=== PATIENT | female | born 1975 | race Caucasian/White ===

== ENCOUNTER → 2017-07-24 13:44 | Outpatient (CLI) | payer BC, SELFPAY ==
--- NOTE | 2017-07-24 13:45 | DI.RAD.S_ITS ---
PROCEDURE: XR FOOT RT MIN 3V INDICATIONS: 41 year-old female with right foot pain after injury 2-3 weeks ago. TECHNIQUE: 3 views of the foot were acquired. COMPARISON: [facility], , FOOT 3V RIGHT, 01/25/2013, 11:10. FINDINGS: Bones: No fractures or dislocations. No suspicious bony lesions. Tiny plantar calcaneal degenerative enthesophyte is unchanged. Soft tissues: No radiopaque soft tissue foreign bodies. No tibiotalar joint effusion. Achilles tendon appears normal. IMPRESSION: No acute bony injuries of the right foot. Dictated by: Jeffrey Tillmna M.D. on 07/24/2017 at 14:17 Approved by: Jeffrey Tillman M.D. on 07/24/2017 at 14:18
== END ==
PROVIDERS: PCP Family Medicine; Visit Provider Nurse Practitioner Family
DX: M79.671 Pain in right foot (principal)
CPT/HCPCS: 73630

== ENCOUNTER 2017-09-08 21:55 | Emergency (ER) | payer BC, SELFPAY ==
[2017-09-08 21:58] VITALS: BP 142/82; PULSE 72; RESP 16; TEMP 36.1; O2SAT 98; BMI 32.5
[2017-09-08 22:15] LABS: Bilirubin Urine UA NEGATIVE (NEGATIVE); Color Urine UA YELLOW; Glucose Urine UA NEGATIVE (Normal); Ketones Urine UA NEGATIVE (NEGATIVE); Leukocyte Esterase Urine UA 1+ (NEGATIVE); Nitrite Urine UA Negative (Negative); Occult Blood Urine UA 3+ (Negative); Protein Urine UA 1+ (Negative); Specific Gravity Urine UA >=1.030 (1.000-1.035); Urobilinogen Urine UA 0.2 E.U./dL (0.2)
[2017-09-08 22:19] LABS: Appearance Urine UA Slightly Cloudy
[2017-09-08 22:26] LABS: Bacteria Urine Few (2-10); RBC Urine 30-100/HPF (0-5/HPF); Squamous Epithelial Cell Urine 0-1 /HPF; WBC Urine 5-10/HPF (0-5/HPF)
[2017-09-08 22:27] LABS: Culture Indicated Urine Specimen Cultured
--- NOTE | 2017-09-08 22:35 | ED.ABDPAIN ---
HPI - Abdominal Pain General Chief Complaint: Abdominal Pain Stated Complaint: Lt Side Pain Time Seen by Provider: 09/08/17 22:35 Source: patient Mode of arrival: ambulatory Limitations: no limitations History of Present Illness HPI narrative: The patient developed left flank abdominal pain earlier today. The pain has persisted, the pain radiates to the left lower quadrant of her abdomen. She denies fever or chills. She has no nausea, vomiting or diarrhea. She has been drinking plenty of fluids. She denies dysuria, but notes her urine is dark. She has no hematuria. She has no history of kidney stones or pyelonephritis. She has had no recent injuries. She is on long-acting control. Her LMP was 1 year ago. She feels confident she is not . Related Data Previous Rx's Medication Instructions Recorded cyclobenzaprine 10 mg PO HS #30 tab 05/02/16 ketorolac 10 mg PO Q8HP PRN #60 tab 07/31/16 topiramate [Topamax] 100 mg PO BID #180 tab 04/01/17 topiramate [Topamax] 200 mg PO BID #180 tab 04/01/17 ketorolac 10 mg PO Q8HP PRN #60 tab 05/13/17 medroxyprogesterone 150 mg/mL 150 mg IM [id number] #1 ml 07/22/17 intramuscular suspension triamcinolone acetonide 0.1 % 1 applictn TOP BID #28.4 gram 09/07/17 topical cream Allergies Allergy/AdvReac Type Severity Reaction Status Date / Time No Known Drug Allergies Allergy Unknown Unverified 05/20/17 11:59 Review of Systems Review of Systems All systems reviewed & are unremarkable except as noted in HPI and below Constitutional Reports as per HPI, Denies chills, Denies fatigue and Denies fever(s) Cardiovascular Denies chest pain, Denies irregular heart rhythm, Denies lightheadedness, Denies palpitations, Denies dyspnea, Denies dyspnea on exertion and Denies orthopnea Respiratory Denies cough, Denies dyspnea, Denies dyspnea on exertion and Denies wheezing Gastrointestinal Gastrointestinal: Reports abdominal pain, Denies change in bowel habits, Denies diarrhea, Denies nausea and Denies vomiting Genitourinary Denies hematuria, Denies urinary frequency, Denies menorrhagia, Reports flank pain and Denies urinary urgency Musculoskeletal Reports back pain and Denies numbness Integumentary/Breasts Denies erythema and Denies rash Neurologic Denies numbness Endocrine Denies fatigue and Denies palpitations Allergic/Immunologic Denies wheezing [facility] Medical History Chronic headaches (Chronic) History of dysmenorrhea (Chronic) Seizures (Chronic) Surgical History History of skin graft (Resolved) Family History Father Melanoma Hypertension TIA (transient ischemic attack) Grandfather Colon cancer Grandfather Lymphoma Grandmother Parkinsons disease Sister Hypothyroid Graves disease Social History Smoking Status: Never smoker alcohol intake: current Exam Initial Vital Signs Initial Vital Signs: Vital Signs Temperature 97.0 F L 09/08/17 21:58 Pulse Rate 72 09/08/17 21:58 Respiratory Rate 16 09/08/17 21:58 Blood Pressure 142/82 H 09/08/17 21:58 Pulse Oximetry 98 09/08/17 21:58 Const General: cooperative and well developed Nutritional Appearance: well nourished Orientation: alert, awake, oriented x3 and not confused Eyes Conjunctivae: conjunctivae normal Sclera: sclerae normal Resp Effort & Inspection: normal respiratory effort and able to speak in complete sentences Auscultation: clear to auscultation bilaterally, no rales, no rhonchi and no wheezes Cardio Rate: regular rate Rhythm: regular rhythm Heart Sounds: S1 normal, S2 normal, no click, no gallops, no murmurs and no rubs Pulses: normal peripheral pulses GI Inspection: non-distended Palpation: soft, no hepatosplenomegaly, No guarding, No pulsatile mass and tender (left flank) Auscultation: normal bowel sounds Back/Spine/Pelvis Back: No CVA tenderness Skin General: no rashes or lesions noted, No jaundice and No petechiae Neuro General: alert, oriented x3, gait normal and no focal motor deficits Speech: speech normal Extrem General: full ROM, no clubbing, cyanosis or edema, no pedal edema and no calf tenderness Course Orders Ordered: ED Orders 09/08/17 22:02 Urinalysis and Microscopic Stat Urine Culture Stat 09/08/17 22:43 CT kidney ureter bladder (KUB) Stat 09/08/17 22:50 Basic Metabolic Panel Stat Complete Blood Count AUTO DIFF Stat Discontinued Medications Hydrocodone Bitart/Acetaminophen (Vicodin Prepack) 1 bottle MISC SEEINSTR ONE Stop: 09/09/17 00:36 Last Admin: 09/09/17 01:02 Dose: 1 bottle Sodium Chloride (Normal Saline 0.9%) 1,000 mls @ 250 mls/hr IV CONT TARA Last Infusion: 09/09/17 01:01 Dose: 250 mls/hr Admin: 09/08/17 22:59 Dose: 250 mls/hr Ketorolac Tromethamine (Toradol) 30 mg IV NOW ONE Stop: 09/08/17 22:44 Last Admin: 09/08/17 22:59 Dose: 30 mg Tamsulosin HCl (Flomax) 0.4 mg PO NOW ONE Stop: 09/08/17 23:56 Last Admin: 09/09/17 00:35 Dose: 0.4 mg Vital Signs - 8 hr 09/08/17 21:58 Temperature 97.0 F L Pulse Rate 72 Respiratory Rate 16 Blood Pressure 142/82 H Pulse Oximetry 98 MDM - Abdominal Pain Lab Data Attestation: I reviewed the patient's lab results. Result diagrams: 09/08/17 22:50 09/08/17 22:50 Lab Results 09/08/17 09/08/17 09/08/17 Range/Units 22:02 22:02 22:50 WBC 11.1 H (4.5-11.0) X10^3/uL RBC 4.78 (4.0-5.2) X10^6/uL Hgb 13.5 (12.0-16.0) g/dL Hct 40.9 (36-46) % MCV 85.7 (80-100) fL MCH 28.3 (26-34) PG MCHC 33.0 (30-36) % RDW 14.4 (11.6-14.8) % Plt Count 240 (150-400) X10^3/uL Neut % (Auto) 64.2 (50-75) % Lymph % (Auto) 23.0 L (25-40) % [place] % (Auto) 9.0 (3-14) % Eos % (Auto) 3.5 (2-4) % Baso % (Auto) 0.3 (0-2) % Neut # (Auto) 7100 H (0491-3204) /uL Sodium (137-145) mmol/L Potassium (3.4-5.1) mmol/L Chloride (98-107) mmol/L Carbon Dioxide (22-32) mmol/L BUN (7-17) mg/dL Creatinine (0.52-1.04) mg/dL Estimated GFR (>60) mL/min BUN/Creatinine Ratio (6-22) Glucose (70-100) mg/dL Calcium (8.4-10.2) mg/dL Urine Color Yellow Urine Appearance Slightly cloudy Urine pH 5.0 (4.5-8.0) Ur Specific [place] >=1.030 H (1.000-1.035) Urine Protein 1+ H (Negative) Urine Glucose (UA) Negative (Normal) g/dL Urine Ketones Negative (NEGATIVE) Urine Occult Blood 3+ H (Negative) Urine Nitrate Negative (Negative) Urine Bilirubin Negative (NEGATIVE) Urine Urobilinogen 0.2 (0.2) E.U./dL Ur Leukocyte Esterase 1+ H (NEGATIVE) Urine RBC 30-100/hpf H (0-5/HPF) Urine WBC 5-10/hpf H (0-5/HPF) Ur Squamous Epith Cells 0-1 /hpf Urine Bacteria Few (2-10) H (None) Ur Culture Indicated? Specimen cultured Micro UA Comment Not Reportable Urine Test Cancelled 09/08/17 Range/Units 22:50 WBC (4.5-11.0) X10^3/uL RBC (4.0-5.2) X10^6/uL Hgb (12.0-16.0) g/dL Hct (36-46) % MCV (80-100) fL MCH (26-34) PG MCHC (30-36) % RDW (11.6-14.8) % Plt Count (150-400) X10^3/uL Neut % (Auto) (50-75) % Lymph % (Auto) (25-40) % [place] % (Auto) (3-14) % Eos % (Auto) (2-4) % Baso % (Auto) (0-2) % Neut # (Auto) (4020-3202) /uL Sodium 142 (137-145) mmol/L Potassium 4.3 (3.4-5.1) mmol/L Chloride 111 H (98-107) mmol/L Carbon Dioxide 20 L (22-32) mmol/L BUN 13 (7-17) mg/dL Creatinine 1.00 (0.52-1.04) mg/dL Estimated GFR > 60.0 (>60) mL/min BUN/Creatinine Ratio 13.0 (6-22) Glucose 99 (70-100) mg/dL Calcium 9.1 (8.4-10.2) mg/dL Urine Color Urine Appearance Urine pH (4.5-8.0) Ur Specific [place] (1.000-1.035) Urine Protein (Negative) Urine Glucose (UA) (Normal) g/dL Urine Ketones (NEGATIVE) Urine Occult Blood (Negative) Urine Nitrate (Negative) Urine Bilirubin (NEGATIVE) Urine Urobilinogen (0.2) E.U./dL Ur Leukocyte Esterase (NEGATIVE) Urine RBC (0-5/HPF) Urine WBC (0-5/HPF) Ur Squamous Epith Cells Urine Bacteria (None) Ur Culture Indicated? Micro UA Comment Urine Test Point of care testing: Point of Care Testing Test Results Negative Imaging Data CT scan - abdomen: Radiologist's impression: 2 mm left distal ureter stone. [facility] Narrative Medical decision making narrative: The patient's pain has improved with IV Toradol. She was started on Flomax for the distal ureter stone. Discharge Plan Departure Patient Disposition: Home, Self-Care Clinical Impression: Calculus of distal left ureter Discharge Date/Time: 09/09/17 01:22 Interventions: ED Discharge Assessment Last Done: 09/09/17 01:06 Instructions: DI for Kidney Stones Activity Restrictions/Additional Instructions: Drink plenty of water, stay well hydrated. Advil 3 tablets every 6 hr as needed for pain. [facility] every 4-6 hours for added pain control when necessary. Screen your urine to ensure the passage of the stone. Follow up with her doctor at the stone has not passed in the next several days. Return here if obviously worse. Prescriptions: No Action triamcinolone acetonide 0.1 % cream 1 applictn TOP BID Qty: 28.4 RF: 0 cyclobenzaprine 10 MG tablet 10 mg PO HS Qty: 30 RF: 0 ketorolac 10 MG tablet 10 mg PO Q8HP PRNQty: 60 RF: 0 topiramate [Topamax] 200 MG tablet 200 mg PO BID Qty: 180 RF: 3 topiramate [Topamax] 100 MG tablet 100 mg PO BID Qty: 180 RF: 3 ketorolac 10 MG tablet 10 mg PO Q8HP PRNQty: 60 RF: 0 medroxyprogesterone [Depo-Provera] 150 mg/mL suspension 150 mg IM [id number] Qty: 1 RF: 0
--- NOTE | 2017-09-08 22:43 | DI.CT.S_ITS ---
PROCEDURE: CT KIDNEY URETER BLADDER (KUB) INDICATIONS: hematuria. Left flank pain. TECHNIQUE: Noncontrast 5 mm thick sections acquired from the diaphragms to the symphysis. 5 mm thick coronal and sagittal reformats were then performed. For radiation dose reduction, the following was used: automated exposure control, adjustment of mA and/or kV according to patient size. COMPARISON: [facility], CT, KIDNEY/ URETER/BLADDER, 11/13/2016, 12:46. FINDINGS: Image quality: Excellent. Lung bases: Lung bases are clear. Heart size is normal. Urinary system: There are renal calculi bilaterally measuring up to 4 mm. There is a 2 mm stone in the distal left ureter. There is mild left hydronephrosis and perinephric stranding. Both kidneys are normal in size. Both ureters appear non-dilated throughout their expected courses. Bladder is contracted, therefore, not well-seen; no calcified bladder stones. Other solid organs: Liver is normal in size. Gallbladder is normal. Pancreas is normal in contours. Spleen is normal in size. No adrenal nodules. Peritoneum and bowel: Unenhanced bowel loops demonstrate normal wall thickness and caliber. No free fluid or air. Nodes and vessels: No retroperitoneal or mesenteric adenopathy by size criteria. Aorta and inferior vena cava are normal in caliber. Abdominal wall: No ventral hernias. Pelvis: No free pelvic fluid. No inguinal hernias or adenopathy. Bones: No suspicious bony lesions. No vertebral body compression fractures. IMPRESSION: 1. A 2 mm stone in the distal left ureter causing mild left hydronephrosis. 2. Nephrolithiasis bilaterally with multiple renal stones measuring up to 4 mm. 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 Dictated by: Matteo Hdz M.D. on 09/09/2017 at 7:10 Approved by: Matteo Hdz M.D. on 09/09/2017 at 7:14
[2017-09-08] MEDS: SODIUM CHLORIDE 0.9% 1,000 ML 250 ML IV (22:59)
[2017-09-08] MEDS: KETOROLAC 60 MG/2 ML VIAL 30 MG IV (22:59)
[2017-09-08 23:01] LABS: Add Manual Diff / Slide Review NO; Basophils Percent Auto 0.3 % (0-2); Eosinophils Percent Auto 3.5 % (2-4); Hematocrit 40.9 % (36-46); Hemoglobin 13.5 g/dL (12.0-16.0); Mean Corpuscular Hemoglobin 28.3 PG (26-34); Mean Corpuscular Volume 85.7 fL (80-100); Neutrophils Absolute Auto 7100 /uL (3000-5900); Neutrophils Percent Auto 64.2 % (50-75); Platelet Count 240 X10^3/uL (150-400); Red Blood Cell Count 4.78 X10^6/uL (4.0-5.2); Red Cell Distribution Width 14.4 % (11.6-14.8); White Blood Cell Count 11.1 X10^3/uL (4.5-11.0)
[2017-09-08 23:09] LABS: Blood Urea Nitrogen 13 mg/dL (7-17); Calcium 9.1 mg/dL (8.4-10.2); Carbon Dioxide 20 mmol/L (22-32); Chloride 111 mmol/L (98-107); Estimated Glomerular Filt Rate > 60.0 mL/min (>60); Glucose 99 mg/dL (70-100); HEMOLYSIS < 15 (0-50); Potassium 4.3 mmol/L (3.4-5.1); Sodium 142 mmol/L (137-145)
[2017-09-09] MEDS: TAMSULOSIN 0.4 MG CAPSULE PO (00:35)
[2017-09-09] MEDS: HYDROCODONE/ACET 5/325 PREPACK 1 BOTTLE MISC (01:02)
== END 2017-09-09 01:22 | disposition home or self-care (01) ==
PROVIDERS: Emergency Provider Emergency Medicine; Family Provider Family Medicine; PCP Family Medicine
DX: N20.1 Calculus of ureter (principal)
CPT/HCPCS: 36591; 74176; 80048; 81001; 81025; 85025; 87086; 96361; 96374; 99283; 99284; J1885

== ENCOUNTER 2018-04-03 19:18 | Emergency (ER) | payer BC, SELFPAY ==
[2018-04-03 19:20] VITALS: BP 124/66; PULSE 95; RESP 13; TEMP 36.5; O2SAT 94
--- NOTE | 2018-04-03 19:51 | ED.NEUROSD ---
HPI - Neuro Symptoms/Deficit General Chief Complaint: Neuro Symptoms/Deficit Stated Complaint: THC ingestion Time Seen by Provider: 04/03/18 19:22 Source: patient and EMS Mode of arrival: EMS Limitations: altered mental status History of Present Illness HPI Narrative: A 42-year-old female nonsmoker presents by EMS for altered mental status, vomiting and near syncope after ingesting THC oil. She has consumed at herbal THC before but never the oil. Soon after she vomited and nearly passed out. She denies ingesting any other chemicals, alcohol or drugs. She denies any chest pain or shortness of breath. She vomited a few times and was transported by EMS for further evaluation and stabilization Onset (ago): hour(s) Timing confirmed by: spouse History of same: No Severity: mild Quality: weak On Anticoagulants: No Treatments Prior to Arrival: other medication Related Data Previous Rx's Medication Instructions Recorded topiramate [Topamax] 200 mg PO BID #180 tab 04/01/17 medroxyprogesterone 150 mg/mL 150 mg IM [id number] #1 ml 07/22/17 intramuscular suspension topiramate 100 mg tablet 100 mg PO BID #180 tab 02/03/18 diazepam 5 mg tablet See Rx Instructions PO BEDTIME PRN 04/02/18 #30 tab escitalopram 5 mg tablet 5 mg PO DAILY #30 tab 04/02/18 Allergies Allergy/AdvReac Type Severity Reaction Status Date / Time No Known Drug Allergies Allergy Unknown Verified 04/03/18 19:28 Review of Systems Review of Systems ROS Unobtainable: Unobtainable due to mental status/LOC Gastrointestinal Gastrointestinal: Reports vomiting PFSH Medical History Chronic headaches (Chronic) History of dysmenorrhea (Chronic) Seizures (Chronic) Surgical History History of skin graft (Resolved) Family History Father Melanoma Hypertension TIA (transient ischemic attack) Grandfather Colon cancer Grandfather Lymphoma Grandmother Parkinsons disease Sister Hypothyroid Graves disease Social History Smoking Status: Never smoker alcohol intake: current Family History Father Melanoma Hypertension TIA (transient ischemic attack) Grandfather Colon cancer Grandfather Lymphoma Grandmother Parkinsons disease Sister Hypothyroid Graves disease Social History Smoking Status: Never smoker alcohol intake: current Exam Narrative Exam Narrative: GENERAL: a 42-year-old female appears stated age, obtunded, guarded airway without difficulty. Handling own secretions without trouble. HEAD: Atraumatic. Normocephalic. No temporal or scalp tenderness. EYES: Pupils equal round and reactive. Extraocular motions intact. No scleral icterus. No injection or drainage. ENT: Nose without bleeding, purulent drainage or septal hematoma. Throat without erythema, tonsillar hypertrophy or exudate. Uvula midline. Airway patent. NECK: Trachea midline. No JVD or lymphadenopathy. Supple, nontender, no meningeal signs. CARDIOVASCULAR: Regular rate and rhythm without murmurs, gallops, or rubs. RESPIRATORY: Clear to auscultation. Breath sounds equal bilaterally. No wheezes, rales, or rhonchi. GASTROINTESTINAL: Abdomen soft, non-tender, nondistended. No hepato-splenomegaly, or palpable masses. No guarding. EXTREMITIES: No clubbing, cyanosis, or edema. No joint tenderness, effusion, or edema noted. BACK: Nontender without deformity or crepitance. No flank tenderness. SKIN: No rash or erythema. Initial Vital Signs Initial Vital Signs: Vital Signs Temperature 97.7 F 04/03/18 19:20 Pulse Rate 95 H 04/03/18 19:20 Respiratory Rate 13 04/03/18 19:20 Blood Pressure 124/66 04/03/18 19:20 Pulse Oximetry 94 04/03/18 19:20 Scores GCS [place] coma scale eye opening: To sound [place] coma scale verbal response: Confused [place] coma scale motor response: Obey commands [place]imi coma scale total score: 13 Course Course Narrative: Patient admitted the took THC or oil for the 1st time and states she thinks she probably took more than she had intended. She was obtunded but over the course of her stay improved in on discharge was alert and oriented and speaking clearly. Orders Ordered: ED Orders 04/03/18 22:28 Urine Culture Stat Urine Drug Screen, Rapid Stat Urine Microscopic Stat Discontinued Medications Sodium Chloride (Normal Saline 0.9%) 1,000 mls @ 1,000 mls/hr IV BOLUS PRN PRN Reason: Fluid replacement Last Infusion: 04/03/18 22:12 Dose: 0 mls/hr Admin: 04/03/18 19:54 Dose: 1,000 mls/hr Ondansetron HCl (Zofran) 4 mg IV NOW ONE Stop: 04/03/18 19:19 Last Admin: 04/03/18 19:52 Dose: 4 mg Ondansetron HCl (Zofran Odt Prepack) 1 bottle MISC SEEINSTR ONE Stop: 04/03/18 23:23 Last Admin: 04/03/18 23:33 Dose: 1 bottle Vital Signs - 8 hr 04/03/18 22:02 04/03/18 23:02 04/03/18 23:34 Pulse Rate 73 82 83 Respiratory Rate 17 12 Blood Pressure 114/55 L Blood Pressure [Right Arm] 116/72 114/55 L Pulse Oximetry 98 98 96 MDM - Neuro Symptoms/Deficit Lab Data Result diagrams: 04/03/18 19:45 04/03/18 19:45 Lab Results 04/03/18 04/03/18 04/03/18 Range/Units 19:45 19:45 19:45 WBC 12.6 H (4.5-11.0) X10^3/uL RBC 4.77 (4.0-5.2) X10^6/uL Hgb 13.5 (12.0-16.0) g/dL Hct 40.9 (36-46) % MCV 85.8 (80-100) fL MCH 28.3 (26-34) PG MCHC 33.0 (30-36) % RDW 13.7 (11.6-14.8) % Plt Count 255 (150-400) X10^3/uL Neut % (Auto) 65.7 (50-75) % Lymph % (Auto) 24.5 L (25-40) % [place] % (Auto) 6.1 (3-14) % Eos % (Auto) 3.4 (2-4) % Baso % (Auto) 0.3 (0-2) % Neut # (Auto) 8300 H (4335-3707) /uL Lymph # (Auto) 3100 (2681-5677) /uL [place] # (Auto) 800 (0-900) /uL Eos # (Auto) 400 (0-450) /uL Baso # (Auto) 0 (0-100) /uL Sodium 139 (137-145) mmol/L Potassium 3.4 (3.4-5.1) mmol/L Chloride 111 H (98-107) mmol/L Carbon Dioxide 17 L (22-32) mmol/L BUN 20 H (7-17) mg/dL Creatinine 0.80 (0.52-1.04) mg/dL Estimated GFR > 60.0 (>60) mL/min BUN/Creatinine Ratio 25.0 H (6-22) Glucose 144 H (70-100) mg/dL Lactate 1.5 (0.7-2.1) mmol/L Calcium 8.4 (8.4-10.2) mg/dL Total Bilirubin 0.2 (0.2-1.3) mg/dL Conjugated Bilirubin 0.0 (0.0-0.3) md/dL Unconjugated Bilirubin 0.0 (0.0-1.1) mg/dL AST 21 (14-36) IU/L ALT 26 (9-52) IU/L Alkaline Phosphatase 121 (38-126) U/L Total Protein 6.8 (6.3-8.2) g/dL Albumin 3.9 (3.5-5.0) g/dL Globulin 2.9 (1.7-4.1) g/dL Albumin/Globulin Ratio 1.3 (1.0-2.8) Urine RBC (0-5/HPF) Urine WBC (0-5/HPF) Ur Squamous Epith Cells Urine Bacteria (None) Urine Mucus (Negative) Ur Culture Indicated? Salicylates < 1.0 (<20) mg/dL Urine Opiates Screen (Negative) Ur Oxycodone Screen (Negative) Urine Methadone Screen (Negative) Acetaminophen < 10 L (10-30) ug/mL Ur Barbiturates Screen (Negative) U Tricyclic Antidepress (Negative) Ur Phencyclidine Scrn (Negative) Ur Amphetamines Screen (Negative) U Methamphetamines Scrn (Negative) Ur MDMA Scrn (Ecstasy) (Negative) U Benzodiazepines Scrn (Negative) Urine Cocaine Screen (Negative) U Marijuana (THC) Screen (Negative) Ethyl Alcohol < 10 mg/dL 04/03/18 04/03/18 Range/Units 22:28 22:28 WBC (4.5-11.0) X10^3/uL RBC (4.0-5.2) X10^6/uL Hgb (12.0-16.0) g/dL Hct (36-46) % MCV (80-100) fL MCH (26-34) PG MCHC (30-36) % RDW (11.6-14.8) % Plt Count (150-400) X10^3/uL Neut % (Auto) (50-75) % Lymph % (Auto) (25-40) % [place] % (Auto) (3-14) % Eos % (Auto) (2-4) % Baso % (Auto) (0-2) % Neut # (Auto) (6327-2927) /uL Lymph # (Auto) (2969-5224) /uL [place] # (Auto) (0-900) /uL Eos # (Auto) (0-450) /uL Baso # (Auto) (0-100) /uL Sodium (137-145) mmol/L Potassium (3.4-5.1) mmol/L Chloride (98-107) mmol/L Carbon Dioxide (22-32) mmol/L BUN (7-17) mg/dL Creatinine (0.52-1.04) mg/dL Estimated GFR (>60) mL/min BUN/Creatinine Ratio (6-22) Glucose (70-100) mg/dL Lactate (0.7-2.1) mmol/L Calcium (8.4-10.2) mg/dL Total Bilirubin (0.2-1.3) mg/dL Conjugated Bilirubin (0.0-0.3) md/dL Unconjugated Bilirubin (0.0-1.1) mg/dL AST (14-36) IU/L ALT (9-52) IU/L Alkaline Phosphatase (38-126) U/L Total Protein (6.3-8.2) g/dL Albumin (3.5-5.0) g/dL Globulin (1.7-4.1) g/dL Albumin/Globulin Ratio (1.0-2.8) Urine RBC 0-1/hpf D (0-5/HPF) Urine WBC 30-100/hpf H (0-5/HPF) Ur Squamous Epith Cells 1-5 /hpf Urine Bacteria Many (>30) H (None) Urine Mucus 1+ H (Negative) Ur Culture Indicated? Specimen cultured Salicylates (<20) mg/dL Urine Opiates Screen Negative (Negative) Ur Oxycodone Screen Negative (Negative) Urine Methadone Screen Negative (Negative) Acetaminophen (10-30) ug/mL Ur Barbiturates Screen Negative (Negative) U Tricyclic Antidepress Negative (Negative) Ur Phencyclidine Scrn Negative (Negative) Ur Amphetamines Screen Negative (Negative) U Methamphetamines Scrn Negative (Negative) Ur MDMA Scrn (Ecstasy) Negative (Negative) U Benzodiazepines Scrn Positive H (Negative) Urine Cocaine Screen Negative (Negative) U Marijuana (THC) Screen Positive H (Negative) Ethyl Alcohol mg/dL Point of Care Testing Test Results Negative Urine Dip Bedside Urine Glucose Negative Bedside Urine Bilirubin ++ 2 Bedside Urine Ketone +/- 5 Urine Specific [place] 1.030 Bedside Urine Occult Blood - Negative Bedside Urine pH 6.0 Bedside Urine Protein + 30 Bedside Urine Urobilinogen +/- 1mg Bedside Urine Nitrite - Negative Bedside Urine Leukocytes +++ 500 Esterase Discharge Plan Departure Patient Disposition: Home Clinical Impression: Accidental overdose Qualifiers: Encounter type: initial encounter Qualified Code(s): T50.901A - Poisoning by unspecified drugs, medicaments and biological substances, accidental (unintentional), initial encounter Discharge Date/Time: 04/03/18 23:37 Interventions: ED Discharge Assessment Last Done: 04/03/18 23:34 Instructions: DI for Accidental Ingestion -- Adult Activity Restrictions/Additional Instructions: *You have been diagnosed with [ acute accidental THC overdose ] *What to do: *Take medications as directed *Follow up with your primary care provider in 2-3 days, call for an appointment. Let them know you were seen in the Emergency Department and that we ask that you be seen in follow up *Return to ER if you should have any new, worsening or concerning symptoms Prescriptions: No Action topiramate [Topamax] 200 MG tablet 200 mg PO BID Qty: 180 RF: 3 topiramate [Topamax] 100 mg tablet 100 mg PO BID Qty: 180 RF: 3 medroxyprogesterone [Depo-Provera] 150 mg/mL suspension 150 mg IM [id number] Qty: 1 RF: 0 escitalopram oxalate 5 mg tablet 5 mg PO DAILY Qty: 30 RF: 1 diazepam 5 mg tablet See Rx Instructions PO BEDTIME PRN (Reason: muscle spasm) Qty: 30 RF: 2 Referrals: Dot Kraus DO [Primary Care Provider] -
[2018-04-03] MEDS: ONDANSETRON 4 MG/2 ML INJ IV (19:52)
[2018-04-03 19:54] LABS: Add Manual Diff / Slide Review NO; Basophils Absolute Auto 0 /uL (0-100); Basophils Percent Auto 0.3 % (0-2); Eosinophils Absolute Auto 400 /uL (0-450); Eosinophils Percent Auto 3.4 % (2-4); Hematocrit 40.9 % (36-46); Hemoglobin 13.5 g/dL (12.0-16.0); Lymphocytes Absolute Auto 3100 /uL (1100-4500); Lymphocytes Percent Auto 24.5 % (25-40); Mean Corpuscular Hemoglobin 28.3 PG (26-34); Mean Corpuscular Volume 85.8 fL (80-100); Monocytes Absolute Auto 800 /uL (0-900); Monocytes Percent Auto 6.1 % (3-14); Neutrophils Absolute Auto 8300 /uL (1500-7000); Neutrophils Percent Auto 65.7 % (50-75); Platelet Count 255 X10^3/uL (150-400); Red Blood Cell Count 4.77 X10^6/uL (4.0-5.2); Red Cell Distribution Width 13.7 % (11.6-14.8); White Blood Cell Count 12.6 X10^3/uL (4.5-11.0)
[2018-04-03] MEDS: SODIUM CHLORIDE 0.9% 1,000 ML 1000 ML IV (19:54)
--- NOTE | 2018-04-03 19:55 | ED_ITS ---
HPI - Neuro Symptoms/Deficit General Chief Complaint: Neuro Symptoms/Deficit Stated Complaint: THC ingestion Time Seen by Provider: 04/03/18 19:22 Source: patient and EMS Mode of arrival: EMS Limitations: altered mental status History of Present Illness HPI Narrative: A 42-year-old female nonsmoker presents by EMS for altered mental status, vomiting and near syncope after ingesting THC oil. She has consumed at herbal THC before but never the oil. Soon after she vomited and nearly passed out. She denies ingesting any other chemicals, alcohol or drugs. She denies any chest pain or shortness of breath. She vomited a few times and was transported by EMS for further evaluation and stabilization Onset (ago): hour(s) Timing confirmed by: spouse History of same: No Severity: mild Quality: weak On Anticoagulants: No Treatments Prior to Arrival: other medication Related Data Previous Rx's Medication Instructions Recorded topiramate [Topamax] 200 mg PO BID #180 tab 04/01/17 medroxyprogesterone 150 mg/mL 150 mg IM [id number] #1 ml 07/22/17 intramuscular suspension topiramate 100 mg tablet 100 mg PO BID #180 tab 02/03/18 diazepam 5 mg tablet See Rx Instructions PO BEDTIME PRN 04/02/18 #30 tab escitalopram 5 mg tablet 5 mg PO DAILY #30 tab 04/02/18 Allergies Allergy/AdvReac Type Severity Reaction Status Date / Time No Known Drug Allergies Allergy Unknown Verified 04/03/18 19:28 Review of Systems Review of Systems ROS Unobtainable: Unobtainable due to mental status/LOC Gastrointestinal Gastrointestinal: Reports vomiting PFSH Medical History Chronic headaches (Chronic) History of dysmenorrhea (Chronic) Seizures (Chronic) Surgical History History of skin graft (Resolved) Family History Father Melanoma Hypertension TIA (transient ischemic attack) Grandfather Colon cancer Grandfather Lymphoma Grandmother Parkinsons disease Sister Hypothyroid Graves disease Social History Smoking Status: Never smoker alcohol intake: current Family History Father Melanoma Hypertension TIA (transient ischemic attack) Grandfather Colon cancer Grandfather Lymphoma Grandmother Parkinsons disease Sister Hypothyroid Graves disease Social History Smoking Status: Never smoker alcohol intake: current Exam Narrative Exam Narrative: GENERAL: a 42-year-old female appears stated age, obtunded, guarded airway without difficulty. Handling own secretions without trouble. HEAD: Atraumatic. Normocephalic. No temporal or scalp tenderness. EYES: Pupils equal round and reactive. Extraocular motions intact. No scleral icterus. No injection or drainage. ENT: Nose without bleeding, purulent drainage or septal hematoma. Throat without erythema, tonsillar hypertrophy or exudate. Uvula midline. Airway patent. NECK: Trachea midline. No JVD or lymphadenopathy. Supple, nontender, no meningeal signs. CARDIOVASCULAR: Regular rate and rhythm without murmurs, gallops, or rubs. RESPIRATORY: Clear to auscultation. Breath sounds equal bilaterally. No wheezes, rales, or rhonchi. GASTROINTESTINAL: Abdomen soft, non-tender, nondistended. No hepato- splenomegaly, or palpable masses. No guarding. EXTREMITIES: No clubbing, cyanosis, or edema. No joint tenderness, effusion, or edema noted. BACK: Nontender without deformity or crepitance. No flank tenderness. SKIN: No rash or erythema. Initial Vital Signs Initial Vital Signs: Vital Signs Temperature 97.7 F 04/03/18 19:20 Pulse Rate 95 H 04/03/18 19:20 Respiratory Rate 13 04/03/18 19:20 Blood Pressure 124/66 04/03/18 19:20 Pulse Oximetry 94 04/03/18 19:20 Scores GCS Yimi coma scale eye opening: To sound [place] coma scale verbal response: Confused [place] coma scale motor response: Obey commands Yimi coma scale total score: 13 Course Course Narrative: Patient admitted the took THC or oil for the 1st time and states she thinks she probably took more than she had intended. She was obtunded but over the course of her stay improved in on discharge was alert and oriented and speaking clearly. Orders Ordered: ED Orders 04/03/18 22:28 Urine Culture Stat Urine Drug Screen, Rapid Stat Urine Microscopic Stat Discontinued Medications Sodium Chloride (Normal Saline 0.9%) 1,000 mls @ 1,000 mls/hr IV BOLUS PRN PRN Reason: Fluid replacement Last Infusion: 04/03/18 22:12 Dose: 0 mls/hr Admin: 04/03/18 19:54 Dose: 1,000 mls/hr Ondansetron HCl (Zofran) 4 mg IV NOW ONE Stop: 04/03/18 19:19 Last Admin: 04/03/18 19:52 Dose: 4 mg Ondansetron HCl (Zofran Odt Prepack) 1 bottle MISC SEEINSTR ONE Stop: 04/03/18 23:23 Last Admin: 04/03/18 23:33 Dose: 1 bottle Vital Signs - 8 hr 04/03/18 22:02 04/03/18 23:02 04/03/18 23:34 Pulse Rate 73 82 83 Respiratory Rate 17 12 Blood Pressure 114/55 L Blood Pressure [Right Arm] 116/72 114/55 L Pulse Oximetry 98 98 96 MDM - Neuro Symptoms/Deficit Lab Data Result diagrams: 04/03/18 19:45 04/03/18 19:45 Lab Results 04/03/18 04/03/18 04/03/18 Range/Units 19:45 19:45 19:45 WBC 12.6 H (4.5-11.0) X10^3/uL RBC 4.77 (4.0-5.2) X10^6/uL Hgb 13.5 (12.0-16.0) g/dL Hct 40.9 (36-46) % MCV 85.8 (80-100) fL MCH 28.3 (26-34) PG MCHC 33.0 (30-36) % RDW 13.7 (11.6-14.8) % Plt Count 255 (150-400) X10^3/uL Neut % (Auto) 65.7 (50-75) % Lymph % (Auto) 24.5 L (25-40) % [place] % (Auto) 6.1 (3-14) % Eos % (Auto) 3.4 (2-4) % Baso % (Auto) 0.3 (0-2) % Neut # (Auto) 8300 H (7727-0006) /uL Lymph # (Auto) 3100 (7934-8334) /uL [place] # (Auto) 800 (0-900) /uL Eos # (Auto) 400 (0-450) /uL Baso # (Auto) 0 (0-100) /uL Sodium 139 (137-145) mmol/L Potassium 3.4 (3.4-5.1) mmol/L Chloride 111 H (98-107) mmol/L Carbon Dioxide 17 L (22-32) mmol/L BUN 20 H (7-17) mg/dL Creatinine 0.80 (0.52-1.04) mg/dL Estimated GFR > 60.0 (>60) mL/min BUN/Creatinine Ratio 25.0 H (6-22) Glucose 144 H (70-100) mg/dL Lactate 1.5 (0.7-2.1) mmol/L Calcium 8.4 (8.4-10.2) mg/dL Total Bilirubin 0.2 (0.2-1.3) mg/dL Conjugated Bilirubin 0.0 (0.0-0.3) md/dL Unconjugated Bilirubin 0.0 (0.0-1.1) mg/dL AST 21 (14-36) IU/L ALT 26 (9-52) IU/L Alkaline Phosphatase 121 (38-126) U/L Total Protein 6.8 (6.3-8.2) g/dL Albumin 3.9 (3.5-5.0) g/dL Globulin 2.9 (1.7-4.1) g/dL Albumin/Globulin Ratio 1.3 (1.0-2.8) Urine RBC (0-5/HPF) Urine WBC (0-5/HPF) Ur Squamous Epith Cells Urine Bacteria (None) Urine Mucus (Negative) Ur Culture Indicated? Salicylates < 1.0 (<20) mg/dL Urine Opiates Screen (Negative) Ur Oxycodone Screen (Negative) Urine Methadone Screen (Negative) Acetaminophen < 10 L (10-30) ug/mL Ur Barbiturates Screen (Negative) U Tricyclic Antidepress (Negative) Ur Phencyclidine Scrn (Negative) Ur Amphetamines Screen (Negative) U Methamphetamines Scrn (Negative) Ur MDMA Scrn (Ecstasy) (Negative) U Benzodiazepines Scrn (Negative) Urine Cocaine Screen (Negative) U Marijuana (THC) Screen (Negative) Ethyl Alcohol < 10 mg/dL 04/03/18 04/03/18 Range/Units 22:28 22:28 WBC (4.5-11.0) X10^3/uL RBC (4.0-5.2) X10^6/uL Hgb (12.0-16.0) g/dL Hct (36-46) % MCV (80-100) fL MCH (26-34) PG MCHC (30-36) % RDW (11.6-14.8) % Plt Count (150-400) X10^3/uL Neut % (Auto) (50-75) % Lymph % (Auto) (25-40) % [place] % (Auto) (3-14) % Eos % (Auto) (2-4) % Baso % (Auto) (0-2) % Neut # (Auto) (6376-1283) /uL Lymph # (Auto) (4428-4003) /uL [place] # (Auto) (0-900) /uL Eos # (Auto) (0-450) /uL Baso # (Auto) (0-100) /uL Sodium (137-145) mmol/L Potassium (3.4-5.1) mmol/L Chloride (98-107) mmol/L Carbon Dioxide (22-32) mmol/L BUN (7-17) mg/dL Creatinine (0.52-1.04) mg/dL Estimated GFR (>60) mL/min BUN/Creatinine Ratio (6-22) Glucose (70-100) mg/dL Lactate (0.7-2.1) mmol/L Calcium (8.4-10.2) mg/dL Total Bilirubin (0.2-1.3) mg/dL Conjugated Bilirubin (0.0-0.3) md/dL Unconjugated Bilirubin (0.0-1.1) mg/dL AST (14-36) IU/L ALT (9-52) IU/L Alkaline Phosphatase (38-126) U/L Total Protein (6.3-8.2) g/dL Albumin (3.5-5.0) g/dL Globulin (1.7-4.1) g/dL Albumin/Globulin Ratio (1.0-2.8) Urine RBC 0-1/hpf D (0-5/HPF) Urine WBC 30-100/hpf H (0-5/HPF) Ur Squamous Epith Cells 1-5 /hpf Urine Bacteria Many (>30) H (None) Urine Mucus 1+ H (Negative) Ur Culture Indicated? Specimen cultured Salicylates (<20) mg/dL Urine Opiates Screen Negative (Negative) Ur Oxycodone Screen Negative (Negative) Urine Methadone Screen Negative (Negative) Acetaminophen (10-30) ug/mL Ur Barbiturates Screen Negative (Negative) U Tricyclic Antidepress Negative (Negative) Ur Phencyclidine Scrn Negative (Negative) Ur Amphetamines Screen Negative (Negative) U Methamphetamines Scrn Negative (Negative) Ur MDMA Scrn (Ecstasy) Negative (Negative) U Benzodiazepines Scrn Positive H (Negative) Urine Cocaine Screen Negative (Negative) U Marijuana (THC) Screen Positive H (Negative) Ethyl Alcohol mg/dL Point of Care Testing Test Results Negative Urine Dip Bedside Urine Glucose Negative Bedside Urine Bilirubin ++ 2 Bedside Urine Ketone +/- 5 Urine Specific [place] 1.030 Bedside Urine Occult Blood - Negative Bedside Urine pH 6.0 Bedside Urine Protein + 30 Bedside Urine Urobilinogen +/- 1mg Bedside Urine Nitrite - Negative Bedside Urine Leukocytes +++ 500 Esterase Discharge Plan Departure Patient Disposition: Home Clinical Impression: Accidental overdose Qualifiers: Encounter type: initial encounter Qualified Code(s): T50.901A - Poisoning by unspecified drugs, medicaments and biological substances, accidental (unintentional), initial encounter Discharge Date/Time: 04/03/18 23:37 Interventions: ED Discharge Assessment Last Done: 04/03/18 23:34 Instructions: DI for Accidental Ingestion -- Adult Activity Restrictions/Additional Instructions: *You have been diagnosed with [ acute accidental THC overdose ] *What to do: *Take medications as directed *Follow up with your primary care provider in 2-3 days, call for an appointment. Let them know you were seen in the Emergency Department and that we ask that you be seen in follow up *Return to ER if you should have any new, worsening or concerning symptoms Prescriptions: No Action topiramate [Topamax] 200 MG tablet 200 mg PO BID Qty: 180 RF: 3 topiramate [Topamax] 100 mg tablet 100 mg PO BID Qty: 180 RF: 3 medroxyprogesterone [Depo-Provera] 150 mg/mL suspension 150 mg IM [id number] Qty: 1 RF: 0 escitalopram oxalate 5 mg tablet 5 mg PO DAILY Qty: 30 RF: 1 diazepam 5 mg tablet See Rx Instructions PO BEDTIME PRN (Reason: muscle spasm) Qty: 30 RF: 2 Referrals: Dot Kraus DO [Primary Care Provider] -
[2018-04-03 20:00] VITALS: BP 114/66; PULSE 87; RESP 15; O2SAT 96
--- NOTE | 2018-04-03 20:02 | PC.NURSE ---
Pt is easy to wake up to voice. Pt is drowsy,answering questions appropriately. Pt ingested THC oil approx 1800 today. Pt drowsy and vomiting prior to arrival.
[2018-04-03 20:06] LABS: Acetaminophen < 10 ug/mL (10-30); Alanine Aminotransferase 26 IU/L (9-52); Albumin 3.9 g/dL (3.5-5.0); Albumin Globulin Ratio 1.3 (1.0-2.8); Alkaline Phosphatase 121 U/L (38-126); Aspartate Aminotransferase 21 IU/L (14-36); Bilirubin Total 0.2 mg/dL (0.2-1.3); Blood Urea Nitrogen 20 mg/dL (7-17); Calcium 8.4 mg/dL (8.4-10.2); Carbon Dioxide 17 mmol/L (22-32); Chloride 111 mmol/L (98-107); Estimated Glomerular Filt Rate > 60.0 mL/min (>60); Ethanol (ETOH) < 10 mg/dL; Globulin 2.9 g/dL (1.7-4.1); Glucose 144 mg/dL (70-100); HEMOLYSIS < 15 (0-50); Lactate (Lactic Acid) 1.5 mmol/L (0.7-2.1); Potassium 3.4 mmol/L (3.4-5.1); Salicylate < 1.0 mg/dL (<20); Sodium 139 mmol/L (137-145); Total Protein 6.8 g/dL (6.3-8.2)
[2018-04-03 21:30] VITALS: BP 121/71; PULSE 70; RESP 18; O2SAT 98
[2018-04-03 22:02] VITALS: BP 116/72; PULSE 73; RESP 17; O2SAT 98
[2018-04-03 22:34] LABS: Urine Tetrahydrocannabinol Positive (Negative)
[2018-04-03 22:35] LABS: Urine Amphetamines Negative (Negative); Urine Barbiturates Negative (Negative); Urine Benzodiazepines Positive (Negative); Urine Cocaine Negative (Negative); Urine MDMA Negative (Negative); Urine Methadone Negative (Negative); Urine Methamphetamines Negative (Negative); Urine Morphine/Opi cutoff 2000 Negative (Negative); Urine Oxycodone Negative (Negative); Urine Phencyclidine Negative (Negative); Urine Tricyclic Antidepressant Negative (Negative)
[2018-04-03 22:38] LABS: Bacteria Urine Many (>30); Culture Indicated Urine Specimen Cultured; Mucus Urine 1+ (Negative); RBC Urine 0-1/HPF (0-5/HPF); Squamous Epithelial Cell Urine 1-5 /HPF; WBC Urine 30-100/HPF (0-5/HPF)
[2018-04-03 23:02] VITALS: BP 114/55; PULSE 82; RESP 12; O2SAT 98
[2018-04-03] MEDS: ONDANSETRON 4 MG ODT PREPACK 1 BOTTLE MISC (23:33)
[2018-04-03 23:34] VITALS: BP 114/55; PULSE 83; O2SAT 96
== END 2018-04-03 23:37 | disposition home or self-care (01) ==
PROVIDERS: Emergency Provider Emergency Medicine; Family Provider Family Medicine; PCP Family Medicine
DX: T40.7X1A Poisoning by cannabis (derivatives), accidental (unintentional), initial encounter (principal); R11.10 Vomiting, unspecified
CPT/HCPCS: 36591; 80053; 80076; 80305; 80320; 80329; 81003; 81015; 81025; 83605; 85025; 87086; 96361; 96374; 99283; 99284; 99291; G0480; J2405

== ENCOUNTER → 2018-04-29 11:15 | Outpatient (CLI) | payer BC, SELFPAY ==
[2018-04-29 12:31] LABS: BUN Creatinine Ratio 14.4 (6-22); Blood Urea Nitrogen 13 mg/dL (7-17); Calcium 8.9 mg/dL (8.4-10.2); Carbon Dioxide 22 mmol/L (22-32); Chloride 108 mmol/L (98-107); Estimated Glomerular Filt Rate > 60.0 mL/min (>60); Glucose 87 mg/dL (70-100); HEMOLYSIS < 15 (0-50); Potassium 4.2 mmol/L (3.4-5.1); Sodium 141 mmol/L (137-145)
== END ==
PROVIDERS: PCP Family Medicine; Visit Provider Family Medicine
DX: G40.909 Epilepsy, unspecified, not intractable, without status epilepticus (principal)
CPT/HCPCS: 36415; 80048

== ENCOUNTER → 2018-10-13 17:08 | Outpatient (CLI) | payer BC, SELFPAY ==
[2018-10-13 17:37] LABS: Add Manual Diff / Slide Review NO; Basophils Absolute Auto 0 /uL (0-100); Basophils Percent Auto 0.4 % (0-2); Eosinophils Absolute Auto 500 /uL (0-450); Hematocrit 41.1 % (36-46); Hemoglobin 13.6 g/dL (12.0-16.0); Lymphocytes Absolute Auto 2900 /uL (1100-4500); Lymphocytes Percent Auto 26.9 % (25-40); Mean Corpuscular HGB Conc 33.1 % (30-36); Mean Corpuscular Hemoglobin 28.5 PG (26-34); Mean Corpuscular Volume 86.1 fL (80-100); Monocytes Absolute Auto 900 /uL (0-900); Monocytes Percent Auto 8.3 % (3-14); Neutrophils Absolute Auto 6400 /uL (1500-7000); Neutrophils Percent Auto 59.4 % (50-75); Platelet Count 251 X10^3/uL (150-400); Red Blood Cell Count 4.77 X10^6/uL (4.0-5.2); Red Cell Distribution Width 13.7 % (11.6-14.8); White Blood Cell Count 10.8 X10^3/uL (4.5-11.0)
[2018-10-13 18:32] LABS: Alanine Aminotransferase 16 IU/L (9-52); Albumin 3.9 g/dL (3.5-5.0); Albumin Globulin Ratio 1.4 (1.0-2.8); Alkaline Phosphatase 122 U/L (38-126); Aspartate Aminotransferase 20 IU/L (14-36); BUN Creatinine Ratio 16.7 (6-22); Bilirubin Total 0.4 mg/dL (0.2-1.3); Blood Urea Nitrogen 15 mg/dL (7-17); Calcium 9.3 mg/dL (8.4-10.2); Carbon Dioxide 21 mmol/L (22-32); Chloride 110 mmol/L (98-107); Estimated Glomerular Filt Rate > 60.0 mL/min (>60); Globulin 2.8 g/dL (1.7-4.1); Glucose 79 mg/dL (70-100); HEMOLYSIS < 15 (0-50); Potassium 4.2 mmol/L (3.4-5.1); Sodium 141 mmol/L (137-145); Total Protein 6.7 g/dL (6.3-8.2)
[2018-10-13 18:48] LABS: Prolactin 11.2 ng/mL (3.0-18.6)
[2018-10-13 19:04] LABS: TSH w/ Reflex to FT4 2.99 uIU/mL (0.47-4.68)
== END ==
LOC: LAB 17:10
PROVIDERS: PCP Family Medicine; Visit Provider Family Medicine
DX: G40.909 Epilepsy, unspecified, not intractable, without status epilepticus (principal); Z51.81 Encounter for therapeutic drug level monitoring; Z13.29 Encounter for screening for other suspected endocrine disorder; N94.6 Dysmenorrhea, unspecified
CPT/HCPCS: 36415; 80053; 83735; 84146; 84443; 85025

== ENCOUNTER → 2018-10-22 12:07 | Outpatient (CLI) | payer BC, SELFPAY ==
[2018-10-22 12:36] LABS: Ammonia (NH3) < 9.0 umol/L (9-30)
== END ==
PROVIDERS: PCP Family Medicine; Visit Provider Family Medicine
DX: G40.909 Epilepsy, unspecified, not intractable, without status epilepticus (principal)
CPT/HCPCS: 36415; 80201; 82140

== ENCOUNTER → 2019-03-15 13:39 | Outpatient (CLI) | payer BC, SELFPAY ==
[2019-03-15 14:18] LABS: Add Manual Diff / Slide Review NO; Basophils Absolute Auto 0 /uL (0-100); Basophils Percent Auto 0.3 % (0-2); Eosinophils Absolute Auto 200 /uL (0-450); Eosinophils Percent Auto 3.1 % (2-4); Hemoglobin 14.5 g/dL (12.0-16.0); Lymphocytes Absolute Auto 2300 /uL (1100-4500); Lymphocytes Percent Auto 30.1 % (25-40); Mean Corpuscular HGB Conc 33.8 % (30-36); Mean Corpuscular Hemoglobin 28.8 PG (26-34); Mean Corpuscular Volume 85.1 fL (80-100); Monocytes Absolute Auto 800 /uL (0-900); Monocytes Percent Auto 10.2 % (3-14); Neutrophils Absolute Auto 4400 /uL (1500-7000); Neutrophils Percent Auto 56.3 % (50-75); Platelet Count 293 X10^3/uL (150-400); Red Blood Cell Count 5.05 X10^6/uL (4.0-5.2); Red Cell Distribution Width 14.5 % (11.6-14.8); White Blood Cell Count 7.7 X10^3/uL (4.5-11.0)
[2019-03-15 15:17] LABS: TSH w/ Reflex to FT4 4.21 uIU/mL (0.47-4.68)
== END ==
PROVIDERS: PCP Family Medicine; Referring Provider Family Medicine; Visit Provider Family Medicine
DX: E04.9 Nontoxic goiter, unspecified (principal); K21.9 Gastro-esophageal reflux disease without esophagitis
CPT/HCPCS: 36415; 84443; 85025

== ENCOUNTER → 2019-03-28 14:29 | Outpatient (CLI) | payer BC, SELFPAY ==
[2019-03-28 15:58] LABS: Vitamin D 25 Hydroxy (D3) 22.8 ng/mL (30.0-100.0)
[2019-03-28 15:59] LABS: Free T3, Triiodothyronine Free 3.47 pg/mL (2.77-5.27); Free T4, Direct Thyroxine 0.79 ng/dL (0.78-2.19)
[2019-03-28 16:13] LABS: Thyroid Stimulating Hormone 5.88 uIU/mL (0.47-4.68)
[2019-03-31 14:04] LABS: Anti Thyroglobulin Antibody 1 IU/mL (< 2); Thyroid Peroxidase Antibodies 2 IU/mL (< 9)
== END ==
LOC: LAB 14:30
PROVIDERS: PCP Family Medicine; Referring Provider Family Medicine; Visit Provider Family Medicine
DX: E04.9 Nontoxic goiter, unspecified (principal); G40.909 Epilepsy, unspecified, not intractable, without status epilepticus; M85.80 Other specified disorders of bone density and structure, unspecified site; Z79.899 Other long term (current) drug therapy
CPT/HCPCS: 36415; 82306; 84439; 84443; 84481; 86376; 86800

== ENCOUNTER → 2019-03-30 11:59 | Outpatient (CLI) | payer BC, SELFPAY ==
--- NOTE | 2019-03-30 12:02 | DI.US.S_ITS ---
PROCEDURE: US THYROID INDICATIONS: GOITER TECHNIQUE: Real-time scanning was performed of the thyroid gland, with image documentation. COMPARISON: None. FINDINGS: Right: Thyroid lobe measures 5.7 x 2.4 x 2.2 cm, and is diffusely heterogeneous in echotexture. Left: Thyroid lobe measures 4.5 x 1.9 x 2.2 cm, and is diffusely heterogeneous in echotexture. Isthmus: 2 mm thick. Nodule number: 1 Location: Right medial Size: 3.4 x 1.4 x 2.4 cm. Composition: Solid Echogenicity: Hypoechoic Shape: wider than tall. Margins: Smooth Echogenic foci: None Total points: 4 ACR TI-RADS category: Moderately suspicious Nodule number: 2 Location: Right lateral Size: 3.8 x 1.7 x 2.1 cm. Composition: Solid Echogenicity: Hypoechoic Shape: wider than tall. Margins: Smooth Echogenic foci: None Total points: 4 ACR TI-RADS category: Moderately suspicious Nodule number: 3 Location: Left lateral Size: 2.4 x 0.8 x 1.0 cm. Composition: Predominantly solid Echogenicity: Heterogeneous Shape: Smooth Echogenic foci: None Total points: 3 ACR TI-RADS category: Mildly suspicious IMPRESSION: Bilateral thyroid nodules as above. Recommend sonographically directed fine needle aspiration involving the right # 1 and # 2 nodules. ACR TI-RADS definitions and recommendations: TI-RADS 1 (benign): 0 points. FNA not needed. TI-RADS 2 (not suspicious): 2 points. FNA not needed. TI-RADS 3 (mildly suspicious): 3 points. * FNA if 2.5 cm or larger, follow up if 1.5 cm or larger (at 1, 3, and 5 years). TI-RADS 4 (moderately suspicious): 4-6 points. * FNA if 1.5 cm or larger, follow up if 1 cm or larger (at 1, 2, 3, and 5 years). TI-RADS 5 (highly suspicious): 7 points or more. * FNA if 1 cm or larger, follow up if 0.5 cm or larger (every year for 5 years). Dictated by: Norman Ocampo [facility] Interpreted: Gerardo Myers MD on 03/31/2019 at 14:45 Approved by: Gerardo Myers M.D. on 03/31/2019 at 16:51
== END ==
PROVIDERS: PCP Family Medicine; Referring Provider Family Medicine; Visit Provider Family Medicine
DX: E04.2 Nontoxic multinodular goiter (principal)
CPT/HCPCS: 76536

== ENCOUNTER → 2019-04-26 13:22 | Outpatient (CLI) | payer BC, SELFPAY ==
--- NOTE | 2019-04-26 | PATH_ITS ---
Note [facility] Accession Number: [id number] TESTS RESULT FLAG UNITS REF RANGE LAB Clinician Provided Cytology Information No. of containers..01 Other (Miscellaneous) No. of containers..02 Previously Prepared Cytology Slide 01 RIGHT THYROID DIAGNOSIS: 01 RIGHT THYROID LOBE NODULE, FINE NEEDLE ASPIRATION. NEGATIVE FOR MALIGNANT CELLS. ADEQUATE FOR EVALUATION. COLLOID AND FOLLICULAR GROUPS ARE PRESENT. BENIGN FOLLICULAR (GOITEROUS) NODULE (BETHESDA CATEGORY II), AND FINDINGS THAT RAISE THE POSSIBILITY OF LYMPHOCYTIC THYROIDITIS, SEE COMMENT. COMMENT: EXAMINATION OF THE SMEARS AND THIN PREP SLIDE REVEALS COLLOID, GROUPS OF FOLLICULAR CELLS WITH HURTHLE CELL CHANGES- WITHOUT SIGNIFICANT CYTOLOGIC OR ARCHITECTURAL ATYPIA AND BACKGROUND SMALL, MATURE LYMPHOCYTES. THE DIFFERENTIAL DIAGNOSIS INCLUDES BENIGN GOITEROUS NODULE WITH SAMPLING OF A JING/INTRATHYROIDAL LYMPH NODE, OR NODULAR LYMPHOCYTIC (JILLIAN) THYROIDITIS, IN THE PROPER CLINICAL/LABORATORY CONTEXT. ACCORDING TO THE BETHESDA REPORTING SYSTEM FOR THYROID CYTOPATHOLOGY, THE RISK OF MALIGNANCY IN THE CATEGORY BENIGN-CATEGORY II IS 0-3%; THEREFORE RECOMMEND CONTINUED ULTRASOUND SURVEILLANCE WITH REPEAT FNA IF THE NODULE SIGNIFICANTLY INCREASES IN SIZE. Pathologist ICD10: 01 E04.2 01 FINDINGS: Right: Thyroid lobe measures 5.7 x 2.4 x 2.2 cm, and is diffusely heterogeneous in echotexture. Left: Thyroid lobe measures 4.5 x 1.9 x 2.2 cm, and is diffusely heterogeneous in echotexture. Isthmus: 2 mm thick. Nodule number: 1 Location: Right medial Size: 3.4 x 1.4 x 2.4 cm. Composition: Solid Echogenicity: Hypoechoic Shape: wider than tall. Margins: Smooth Echogenic foci: None Total points: 4 ACR T I-RADS category: Moderately suspicious Nodule number: 2 Location: Right lateral Size: 3.8 x 1.7 x 2.1 cm. Composition: Solid Echogenicity: Hypoechoic Shape: wider than tall. Margins: Smooth Echogenic foci: None Total points: 4 ACR T I-RADS category: Moderately suspicious Nodule number: 3 Location: Left lateral Size: 2.4 x 0.8 x 1.0 cm. Composition: Predominantly solid Echogenicity: Heterogeneous Shape: Smooth Echogenic foci: None Total points: 3 ACR T I-RADS category: Mildly suspicious IMPRESSION: Bilateral thyroid nodules as above. Recommend sonographically directed fine needle aspiration involving the right # 1 and # 2 nodules. ACR TI-RADS definitions and recommendations: TI-RADS 1 (benign): 0 points. FNA not needed. TI-RADS 2 (not suspicious): 2 points. FNA not needed. TI-RADS 3 (mildly suspicious): 3 points. FNA if 2.5 cm or larger, follow up if 1.5 cm or larger (at 1, 3, and 5 years). TIRADS 4 (moderately suspicious): 4-6 points. FNA if 1.5 cm or larger, follow up if 1 cm or larger (at 1, 2, 3, and 5 years). TI-RADS 5 (highly suspicious): 7 points or more. FNA if 1 cm or larger, follow up if 0.5 cm or larger (every year for 5 years). 01 Joe Meredith MD, Pathologist NPI- [id number] 01 Bong Saldaña, Car Repairer Apprentice (ASC) 01 30 CC, RED, CLEAR RECIEVED: 6 ALCOHOL FIXED AND 6 QUICK STAINED SLIDES WITH 1 RNA VIAL FOR FURTHER TESTING. /VDU 04/27/2019 0646 Local FLAG LEGEND: L-Low Normal,H-High Normal,LL-Alert Low,HH-Alert High <-Panic Low,>-Panic High,A-Abnormal,AA-Critical Abnormal Performed at: 01 =Z [facility] [address] [address] [place] [address] [address], [place] [address] Brandt Liu MD, Performed at: 01 [facility] [address], [place], [place] [id number] MD Brandt Liu MD Phone: [phone]
--- NOTE | 2019-04-26 13:25 | DI.US.S_ITS ---
PROCEDURE: US FINE NEEDLE ASPIRATION INDICATIONS: moderately suspicious thyroid nodule TECHNIQUE: The indications, alternatives, benefits, risks, and complications of the procedure were explained to the patient. Written informed consent was obtained and placed in the chart. The thyroid region was examined sonographically and a site was chosen for ultrasound guided percutaneous sampling. The skin was prepared and draped in the usual fashion, and anesthetized with 1% lidocaine infiltrated from the skin down to the thyroid gland. Multiple passes were then performed, with contents emptied into an appropriate pathology specimen container. A bandage was applied to the area of access at completion of the study. COMPARISON: None. FINDINGS: Location(s) of lesion(s) sampled: Right thyroid lobe, which contains a bilobed nodule rather than to discrete nodules, and thyroid fine needle aspiration into the mass was performed at different angles and depths for adequate sampling. [place]: 25 gauge hypodermic needles. Number of passes: 8 Medications: 1% lidocaine for local anaesthesia. Complications: None. IMPRESSION: Successful ultrasound-guided thyroid nodule fine needle aspiration, with cytology results pending. Please see chart below for management recommendations based on cytology results. Counce System ReportingRecommendationsNon-diagnostic* Repeat US-guided FNA, with on-site cytology evaluation if possible. * Repeated non-diagnostic nodules without high suspicion US features: close observation vs surgical consult. * Consider surgery if nodule has high suspicion US features, grows >20% in 2 dimensions on followup, or patient has clinical risk factors for malignancy. Benign* If nodule has high suspicion US features: repeat US and FNA within 12 months. * If nodule has low to intermediate suspicion US features: repeat US at 12-24 months. If nodule grows (20% increase in at least 2 dimensions, with minimal increase of 2 mm or >50% change in volume), or development of new suspicious US features, then repeat FNA or continue followup. * If nodule has very low suspicion US features: followup US at >24 months. Atypia of undetermined significance, follicular lesion of undetermined significanceRepeat FNA, molecular testing, followup US, or surgical consult.Follicular neoplasm, suspicious for follicular neoplasmSurgical consult; also consider molecular testing. Suspicious for malignancySurgical consult.MalignantSurgical consult. Dictated by: Familia Collazo M.D. on 04/26/2019 at 16:19 Approved by: Familia Collazo M.D. on 04/26/2019 at 16:20
== END ==
PROVIDERS: PCP Family Medicine; Referring Provider Family Medicine; Visit Provider Family Medicine
DX: E04.2 Nontoxic multinodular goiter (principal)
CPT/HCPCS: 10005

== ENCOUNTER → 2019-05-19 14:00 | Outpatient (CLI) | payer OTHER, SELFPAY ==
[2019-05-19 16:06] LABS: Vitamin D 25 Hydroxy (D3) 32.8 ng/mL (30.0-100.0)
[2019-05-19 16:07] LABS: Free T3, Triiodothyronine Free 2.56 pg/mL (2.77-5.27); Free T4, Direct Thyroxine 1.03 ng/dL (0.78-2.19)
[2019-05-19 16:20] LABS: Thyroid Stimulating Hormone 2.54 uIU/mL (0.47-4.68)
[2019-05-24 06:42] LABS: Deamidated Gliadin IgA 4 units (0-19); Deamidated Gliadin IgG 2 units (0-19); IGA 333 mg/dL (87-352); t-Transglutaminase IgA <2 U/mL (0-3)
== END ==
LOC: LAB 14:03
PROVIDERS: PCP Family Medicine; Referring Provider Family Medicine; Visit Provider Family Medicine
DX: E03.9 Hypothyroidism, unspecified (principal); E55.9 Vitamin D deficiency, unspecified; G40.909 Epilepsy, unspecified, not intractable, without status epilepticus; M85.80 Other specified disorders of bone density and structure, unspecified site; R10.9 Unspecified abdominal pain
CPT/HCPCS: 36415; 82306; 82784; 83516; 84439; 84443; 84481

== ENCOUNTER → 2019-06-24 09:54 | Outpatient (CLI) | payer OTHER, SELFPAY ==
[2019-06-24 11:04] LABS: Vitamin D 25 Hydroxy (D3) 45.5 ng/mL (30.0-100.0)
[2019-06-24 11:08] LABS: Free T4, Direct Thyroxine 1.19 ng/dL (0.78-2.19)
[2019-06-24 11:22] LABS: Thyroid Stimulating Hormone 3.89 uIU/mL (0.47-4.68)
[2019-06-26 00:36] LABS: Anti Thyroglobulin Antibody <1.0 IU/mL (0.0-0.9); Thyroid Peroxidase Antibodies <9 IU/mL (0-34)
[2019-06-28 08:19] LABS: Triiodothyronine T3 Reverse 16.7 ng/dL (9.2-24.1)
== END ==
PROVIDERS: PCP Family Medicine; Referring Provider Family Medicine; Visit Provider Family Medicine
DX: E04.1 Nontoxic single thyroid nodule (principal); E06.3 Autoimmune thyroiditis; E55.9 Vitamin D deficiency, unspecified; G40.909 Epilepsy, unspecified, not intractable, without status epilepticus; Z79.899 Other long term (current) drug therapy; M85.80 Other specified disorders of bone density and structure, unspecified site
CPT/HCPCS: 36415; 82306; 84439; 84443; 84481; 84482; 86376; 86800

== ENCOUNTER → 2019-07-29 06:46 | Outpatient (CLI) | payer OTHER, SELFPAY ==
--- NOTE | 2019-07-29 06:48 | DI.CT.S_ITS ---
PROCEDURE: CT KIDNEY URETER BLADDER (KUB) INDICATIONS: RLQ pain, history of kidney stones, hematuria TECHNIQUE: Noncontrast 5 mm thick sections acquired from the diaphragms to the symphysis. 5 mm thick coronal and sagittal reformats were then performed. For radiation dose reduction, the following was used: automated exposure control, adjustment of mA and/or kV according to patient size. COMPARISON: [facility], CT, CT KIDNEY URETER BLADDER (KUB), 09/08/2017, 22:52. FINDINGS: Image quality: Excellent. Lung bases: Lung bases are clear. Heart size is normal. Urinary system: Both kidneys are normal in size. It bilateral nonobstructing calculi are present, the largest of which measures 4 mm on the right and 7 mm on the left. No hydronephrosis or perinephric fat stranding. Both ureters appear non-dilated throughout their expected courses. There is a questionable 2 mm nonobstructing calculus within the distal right ureter (series 2/image 81). This is new when compared with the prior CT dated 09/08/17. Bladder is decompressed. No calcified bladder stones. Other solid organs: Liver is normal in size. Gallbladder is unremarkable. Pancreas is normal in contours. Spleen is normal in size. Subcentimeter hyperdense focus in the central aspect of the spleen is unchanged from the study dated 09/08/17 and may represent a small cyst or hemangioma. No adrenal nodules. Peritoneum and bowel: Unenhanced bowel loops demonstrate normal wall thickness and caliber. No free fluid or air. Nodes and vessels: No retroperitoneal or mesenteric adenopathy by size criteria. Aorta and inferior vena cava are normal in caliber. Abdominal wall: No ventral hernias. Pelvis: No free pelvic fluid. No inguinal hernias or adenopathy. Bones: No suspicious bony lesions. No vertebral body compression fractures. IMPRESSION: 1. Nonobstructive bilateral nephrolithiasis. 2. Probable 2 mm distal right ureteral calculus. No hydroureter to suggest obstruction. 3. No acute intra-abdominal findings. Normal appendix. Dictated by: Althea Zendejas M.D. on 07/29/2019 at 8:27 Approved by: Althea Zendejas M.D. on 07/29/2019 at 8:34
== END ==
PROVIDERS: PCP Family Medicine; Referring Provider Family Medicine; Visit Provider Family Medicine
DX: R31.9 Hematuria, unspecified (principal); R10.31 Right lower quadrant pain; N20.0 Calculus of kidney; N20.1 Calculus of ureter; Z87.442 Personal history of urinary calculi
CPT/HCPCS: 74176

== ENCOUNTER → 2019-08-03 10:24 | Outpatient (CLI) | payer OTHER, SELFPAY ==
--- NOTE | 2019-08-03 10:25 | DI.US.S_ITS ---
PROCEDURE: US RENAL COMPLETE INDICATIONS: FLANK PAIN TECHNIQUE: Real-time scanning was performed of the kidneys and bladder, with image documentation. COMPARISON: [facility], CT, CT KIDNEY URETER BLADDER (KUB), 07/29/2019, 6:52. FINDINGS: Kidneys: Kidneys are normal in size. Right kidney measures 11.3 cm long; left kidney measures 11.8 cm long. Right renal cortical thickness is 1.5 cm; left renal cortical thickness is 0.9 cm. Renal cortical echotexture is normal. No hydronephrosis. No suspicious solid mass lesions. Scattered nonobstructing stones are seen, which are better demonstrated on the prior CT examination. Bladder: Pre-void bladder volume is 106 mL. Post-void residual is 21 mL. Pre-void images demonstrate no intraluminal masses or stones. On pre-void images, only the right ureteral jet can be seen with color Doppler interrogation. (Of note, ureteral jets may not be detectable in up to 25% of cases due to insufficient differences in specific gravity between ureteral and bladder urine). Miscellaneous: No free pelvic fluid. IMPRESSION: Negative for hydronephrosis. Nonobstructing kidney stones are seen. Only the right ureteral jet can be seen. Small postvoid residual, 21 cc. Dictated by: Willie Nath M.D. on 08/03/2019 at 10:21 Approved by: Willie Nath M.D. on 08/03/2019 at 10:34
== END ==
PROVIDERS: PCP Family Medicine; Referring Provider Family Medicine; Visit Provider Family Medicine
DX: R10.9 Unspecified abdominal pain (principal); N20.1 Calculus of ureter; N20.0 Calculus of kidney; N13.30 Unspecified hydronephrosis
CPT/HCPCS: 76770

== ENCOUNTER → 2019-10-27 10:34 | Outpatient (CLI) | payer OTHER, SELFPAY ==
[2019-10-27 12:31] LABS: Free T3, Triiodothyronine Free 3.24 pg/mL (2.77-5.27); Free T4, Direct Thyroxine 1.23 ng/dL (0.78-2.19)
[2019-10-27 12:45] LABS: Thyroid Stimulating Hormone 2.57 uIU/mL (0.47-4.68)
== END ==
PROVIDERS: PCP Family Medicine; Referring Provider Family Medicine; Visit Provider Family Medicine
DX: E03.9 Hypothyroidism, unspecified (principal)
CPT/HCPCS: 36415; 82542; 84439; 84443; 84481

== ENCOUNTER → 2019-11-22 15:16 | Outpatient (CLI) | payer OTHER, SELFPAY ==
--- NOTE | 2019-11-22 15:22 | DI.RAD.S_ITS ---
PROCEDURE: XR KUB INDICATIONS: kidney stones TECHNIQUE: One view of the abdomen acquired. COMPARISON: FINDINGS: Surgical changes and devices: None. Bowel: Bowel gas pattern is normal. Soft tissues: Small bilateral renal calcifications are present, as before. Visualized solid organ contours appear normal in size. Bones: No suspicious bony lesions. IMPRESSION: Small bilateral renal calcifications. Dictated by: Scott Turner M.D. on 11/22/2019 at 17:06 Approved by: Scott Turner M.D. on 11/22/2019 at 17:07
[2019-11-22 17:26] LABS: Uric Acid 5.6 mg/dL (2.5-6.2)
[2019-11-23 09:09] LABS: Parathyroid Hormone Int 29 pg/mL (15-65)
== END ==
PROVIDERS: PCP Family Medicine; Referring Provider Specialist; Visit Provider Specialist
DX: N20.0 Calculus of kidney (principal)
CPT/HCPCS: 36415; 74018; 82310; 83970; 84550

== ENCOUNTER → 2020-01-30 13:02 | Outpatient (CLI) | payer OTHER, SELFPAY | PROVIDERS: PCP Family Medicine; Visit Provider Nurse Practitioner | DX: J02.9 Acute pharyngitis, unspecified (principal) | CPT/HCPCS: 87070; 87077; 87147 ==

== ENCOUNTER 2020-02-01 07:12 | Emergency (ER) | payer OTHER, SELFPAY ==
[2020-02-01] VITALS (15 sets, daily range): BP systolic 103–166; BP diastolic 58–81; PULSE 64–87; RESP 18; TEMP 35.5–36.4; O2SAT 97–100; BMI 38.4
--- NOTE | 2020-02-01 07:28 | ED.HA ---
HPI - Headache General Chief Complaint: Headache Stated Complaint: front/top of head headache/nausea x8 hours Time Seen by Provider: 02/01/20 07:25 Source: patient Mode of arrival: Ambulatory Limitations: no limitations History of Present Illness HPI Narrative: This is a 44-year-old female comes to the emergency department with complaint of headache. Patient states front of the head, somewhat typical of her prior migraine pattern spiritually gets 1 approximately once a year. She has had some mild nausea but no vomiting. No vision changes, no difficulty with speech. No numbness tingling or weakness of her extremities. She denies chest pain or pressure. She was COVID positive 10 days ago with cold cough congestive symptoms and she states she gets short of breath with exertion. She states that her symptoms have been slowly improving. She has not had any vomiting. She also states that she had a sore throat and was tested for strep which was positive and she was started on amoxicillin last night. Patient denies any diarrhea or constipation. No urinary symptoms. No difficulties with gait or ambulation. Patient did try wheo-lzx-vzmtznt medication last night and this morning with no alleviation of symptoms. She does take Topamax for seizures, she states that she is also being titrated up on Lamictal in order to switch her from Topamax to Lamictal. She has not had a seizure for quite a while. She denies any other major medical issues. No allergies to medications. No tobacco, alcohol or illicit. Patient did drive herself today to the emergency department. Related Data Home Medications Medication Instructions Recorded Confirmed lamotrigine 25 mg tablet See Rx Instructions PO ONCE 11/11/19 01/30/20 Previous Rx's Medication Instructions Recorded medroxyprogesterone 150 mg/mL 150 mg IM [id number] #1 ml 07/22/17 intramuscular suspension topiramate 200 mg tablet 200 mg PO BID #180 tab 05/04/19 ergocalciferol (vitamin D2) 1,250 50,000 unit PO QWEEK #8 cap 05/25/19 mcg (50,000 unit) capsule topiramate 100 mg tablet 100 mg PO BID #180 tab 05/27/19 levothyroxine 88 mcg capsule 88 mcg PO DAILY #90 cap 06/27/19 diazepam 10 mg tablet 10 mg PO BEDTIME PRN #90 tab 11/11/19 escitalopram oxalate 5 mg tablet 5 mg PO DAILY #90 tab 11/16/19 amoxicillin 500 mg capsule 500 mg PO BID 10 Days #20 cap 01/31/20 meloxicam [Mobic] 7.5 mg PO DAILY #7 tab 02/01/20 Allergies Allergy/AdvReac Type Severity Reaction Status Date / Time No Known Drug Allergies Allergy Unknown Verified 02/01/20 07:50 Review of Systems Review of Systems ROS Unobtainable: All systems reviewed & are unremarkable except as noted in HPI and below Patient History Medical History Acute maxillary sinusitis Allergic rhinitis Anxiety Bilateral nephrolithiasis Cervical dystonia Chronic headaches Dysmenorrhea (11/09/14) GERD (gastroesophageal reflux disease) Goiter History of dysmenorrhea History of nephrolithiasis Hydronephrosis, right Kidney stone Long-term use of high-risk medication Lymphocytic thyroiditis Migraine without aura and without status migrainosus, not intractable (04/07/15) Needlestick injury with contaminated needle Pharyngitis Recurrent nephrolithiasis Seizure disorder (11/09/14) Thyroid nodule Surgical History History of skin graft Family History Father Melanoma Hypertension TIA (transient ischemic attack) Grandfather Colon cancer Grandfather Lymphoma Grandmother Parkinsons disease Sister Hypothyroid Graves disease Social History Smoking Status: Never smoker alcohol intake: current Smoking Status: Never smoker alcohol intake frequency: other Substance Use Type: does not use Exam Initial Vital Signs Initial Vital Signs: Vital Signs Pulse Rate 83 02/01/20 07:27 Pulse Oximetry 98 02/01/20 07:27 GEN: well nourished, well appearing female, alert and oriented x 3, patient appears to be in mild distress. HEENT: Atraumatic, pupils are equal round reactive to light, extraocular movements are intact, nares are clear, TMs are clear with no fluid, there is no conjunctival pallor. Throat is clear without any exudates, erythema, tonsillar enlargement or uvular deviation, no facial droop. HEART: Regular rate and rhythm without murmur, clicks, rubs. LUNGS:Lungs clear to auscultation, no wheezes, rales, crackles, chest moves symmetrically ABD:bowel sounds normal, soft, non-tender, no guarding, rebound, rigidity, no masses noted, no hepatosplenomegaly MSCL: Non-tender, no muscle atrophy, muscles strength 5/5 upper and lower extremities, full range of motion, normal gait NEURO:CN 2-12 intact, sensation normal, reflexes 2/4 upper and lower extremities. finger nose finger test normal, heel garcia test normal, no dysarthria. SKIN: No rash, erythema or other skin changes noted. Course Orders Ordered: Discontinued Medications Diphenhydramine HCl (Diphenhydramine 50 Mg/Ml Vial) 25 mg IV NOW ONE Stop: 02/01/20 09:03 Last Admin: 02/01/20 09:15 Dose: 25 mg Documented by: YAMIL Sodium Chloride (Normal Saline 0.9%) 1,000 mls @ 1,000 mls/hr IV BOLUS ONE Stop: 02/01/20 08:39 Last Infusion: 02/01/20 09:11 Dose: 0 mls/hr Documented by: Admin: 02/01/20 08:04 Dose: 1,000 mls/hr Documented by: YAMIL Ketorolac Tromethamine (Ketorolac 60 Mg/2 Ml Vial) 30 mg IV NOW ONE Stop: 02/01/20 07:41 Last Admin: 02/01/20 08:04 Dose: 30 mg Documented by: YAMIL Metoclopramide HCl (Metoclopramide 10 Mg/2 Ml Inj) 10 mg IV NOW ONE Stop: 02/01/20 09:03 Last Admin: 02/01/20 09:15 Dose: 10 mg Documented by: YAMIL Ondansetron HCl (Ondansetron 4 Mg/2 Ml Inj) 4 mg IV NOW ONE Stop: 02/01/20 07:41 Last Admin: 02/01/20 08:04 Dose: 4 mg Documented by: YAMIL Reevaluation(s) Reevaluation #1: Patient states minimal improvement with Toradol, fluids and zofran. Will add reglan and benadryl and recheck. Patient has no other complaints currently. Time: 09:03 Reevaluation #2: Patient is feeling better, headache from 8 to 4. She feels comfortable returning home. Did offer mobic prescription in case she has continuing symptoms. Time: 10:11 Vital Signs Vital signs: Vital Signs - 8 hr 02/01/20 07:27 02/01/20 07:30 02/01/20 07:44 Temperature 97.5 F L Pulse Rate 83 77 87 Respiratory Rate 18 Blood Pressure 166/81 H Pulse Oximetry 98 98 98 02/01/20 08:00 02/01/20 08:30 02/01/20 09:00 Temperature Pulse Rate 76 71 76 Respiratory Rate Blood Pressure Pulse Oximetry 98 98 98 02/01/20 09:22 Temperature Pulse Rate 76 Respiratory Rate Blood Pressure 140/75 Pulse Oximetry 100 MDM - Headache MDM Narrative Medical decision making narrative: Patient likely has an exacerbation of her typical migraines secondary to recent COVID infection which is slowly improving as well as a code infection of strep. Patient was just started on amoxicillin last night, no signs or symptoms allergic reaction appreciated. Discharge Plan Departure Patient Disposition: Home Clinical Impression: Headache Qualifiers: Headache type: unspecified Instructions: DI for Headache Activity Restrictions/Additional Instructions: Continue home medications as well as amoxicillin as prescribed. You may take mobic every 12 hours as needed for headache and/or Tylenol up to a 1000 mg every 8 hours. Do not take ibuprofen/alleve or naproxen with this medication. Prescription sent to [facility]. Return to the ER for sudden severe headaches, new weakness, numbness or difficulty with movement, speech, persistent vomiting, vision changes, worsening chest pain or shortness of breath, any signs of allergic reaction such as swelling of the throat, rash or other new or concerning symptoms Prescriptions: New meloxicam [Mobic] 7.5 mg tablet 7.5 mg PO DAILY Qty: 7 RF: 0 No Action topiramate [Topamax] 200 mg tablet 200 mg PO BID Qty: 180 RF: 3 topiramate [Topamax] 100 mg tablet 100 mg PO BID Qty: 180 RF: 3 escitalopram oxalate 5 mg tablet 5 mg PO DAILY Qty: 90 RF: 1 amoxicillin 500 mg capsule 500 mg PO BID 10 Days Qty: 20 RF: 0 medroxyprogesterone [Depo-Provera] 150 mg/mL suspension 150 mg IM [id number] Qty: 1 RF: 0 ergocalciferol (vitamin D2) 1,250 mcg (50,000 unit) capsule 50,000 unit PO QWEEK Qty: 8 RF: 0 levothyroxine 88 mcg capsule 88 mcg PO DAILY Qty: 90 RF: 3 lamotrigine 25 mg tablet See Rx Instructions PO ONCE RF: 0 diazepam 10 mg tablet 10 mg PO BEDTIME PRN (Reason: muscle spasm) Qty: 90 RF: 1 Referrals: Dot Kraus DO [Primary Care Provider] -
[2020-02-01] MEDS: ONDANSETRON 4 MG/2 ML INJ IV (08:04)
[2020-02-01] MEDS: SODIUM CHLORIDE 0.9% 1,000 ML 1000 ML IV (08:04)
[2020-02-01] MEDS: KETOROLAC 60 MG/2 ML VIAL 30 MG IV (08:04)
[2020-02-01] MEDS: METOCLOPRAMIDE 10 MG/2 ML INJ IV (09:15)
[2020-02-01] MEDS: diphenhydrAMINE 50 MG/ML VIAL 25 MG IV (09:15)
--- NOTE | 2020-02-01 12:33 | PC.NURSE ---
pt ambulated to restroom, steady gait.
== END 2020-02-01 12:42 | disposition home or self-care (01) ==
PROVIDERS: Emergency Provider Emergency Medicine; PCP Family Medicine
DX: R51.9 Headache, unspecified (principal); R11.0 Nausea; U07.1 COVID-19
CPT/HCPCS: 96361; 96374; 96375; 99281; 99284; J1200; J1885; J2405; J2765

== ENCOUNTER → 2020-02-08 15:25 | Outpatient (CLI) | payer OTHER, SELFPAY ==
[2020-02-08 15:54] LABS: Hematocrit 39.2 % (36-46); Hemoglobin 12.9 g/dL (12.0-16.0)
[2020-02-08 16:08] LABS: BUN Creatinine Ratio 12.2 (6-22); Blood Urea Nitrogen 12 mg/dL (7-17); Calcium 8.8 mg/dL (8.4-10.2); Carbon Dioxide 22 mmol/L (22-32); Chloride 113 mmol/L (98-107); Estimated Glomerular Filt Rate > 60.0 mL/min (>60); Glucose 109 mg/dL (70-100); HEMOLYSIS < 15 (0-50); Potassium 4.1 mmol/L (3.4-5.1); Sodium 139 mmol/L (137-145)
[2020-02-08 17:22] LABS: Creatinine Urine Random 51.2 mg/dL; Protein (Total) Urine Random 12 mg/dL (0-12); Protein Creatinine Ratio Urine 0.23 GRAM/24H
== END ==
PROVIDERS: PCP Family Medicine; Referring Provider Student in an Organized Health Care Education/Training Program; Visit Provider Student in an Organized Health Care Education/Training Program
DX: N05.9 Unspecified nephritic syndrome with unspecified morphologic changes (principal); R80.9 Proteinuria, unspecified; D64.9 Anemia, unspecified
CPT/HCPCS: 36415; 80048; 82570; 84156; 85014; 85018

== ENCOUNTER → 2020-04-02 09:46 | Outpatient (CLI) | payer OTHER, SELFPAY ==
[2020-04-02 11:17] LABS: Alanine Aminotransferase 22 IU/L (<35); Albumin Globulin Ratio 1.3 (1.0-2.8); Alkaline Phosphatase 119 U/L (38-126); Aspartate Aminotransferase 22 IU/L (14-36); BUN Creatinine Ratio 9.7 (6-22); Bilirubin Total 0.3 mg/dL (0.2-1.3); Blood Urea Nitrogen 10 mg/dL (7-17); Carbon Dioxide 23 mmol/L (22-32); Chloride 110 mmol/L (98-107); Cholesterol 223 mg/dL (140-199); Estimated Glomerular Filt Rate 58.2 mL/min (>60); Glucose 103 mg/dL (70-100); HDL Cholesterol 45 mg/dL (40-60); HEMOLYSIS < 15 (0-50); LDL Cholesterol Calculated 162 mg/dL (<100); Potassium 4.1 mmol/L (3.4-5.1); Sodium 140 mmol/L (137-145); Triglycerides 79 mg/dL (35-150)
[2020-04-02 11:47] LABS: TSH w/ Reflex to FT4 4.57 uIU/mL (0.47-4.68)
[2020-04-05 12:22] LABS: Topiramate 14.8 ug/mL (2.0-25.0)
[2020-04-05 13:02] LABS: Lamotrigine Lamictal 3.7 ug/mL (2.0-20.0)
== END ==
PROVIDERS: PCP Family Medicine; Referring Provider Psychiatry & Neurology Neurology; Visit Provider Psychiatry & Neurology Neurology
DX: G40.109 Localization-related (focal) (partial) symptomatic epilepsy and epileptic syndromes with simple partial seizures, not intractable, without status epilepticus (principal); E03.9 Hypothyroidism, unspecified; E04.9 Nontoxic goiter, unspecified; F41.9 Anxiety disorder, unspecified; G40.909 Epilepsy, unspecified, not intractable, without status epilepticus; G43.009 Migraine without aura, not intractable, without status migrainosus; N13.30 Unspecified hydronephrosis; N20.0 Calculus of kidney; Z79.899 Other long term (current) drug therapy; Z83.49 Family history of other endocrine, nutritional and metabolic diseases
CPT/HCPCS: 36415; 80053; 80061; 80175; 80201; 84443

== ENCOUNTER → 2020-04-09 12:28 | Outpatient (CLI) | payer OTHER, SELFPAY ==
--- NOTE | 2020-04-09 | DI.US.S_ITS ---
PROCEDURE: US THYROID INDICATIONS: NODULES TECHNIQUE: Real-time scanning was performed of the thyroid gland, with image documentation. COMPARISON: [facility], US, US THYROID, 03/30/2019, 12:12. FINDINGS: Right: Thyroid lobe measures 6.0 x 2.3 x 2.8 cm, and is markedly heterogeneous in echotexture. Left: Thyroid lobe measures 5.0 x 2.0 x 1.7 cm, and is markedly heterogeneous in echotexture. There is also suggestion of diffuse hyperemia Isthmus: 4 mm thick. The previously described multiple thyroid nodules are not well seen on today's examination. This could be due to marked heterogeneity of the parenchyma, suggestive of thyroiditis IMPRESSION: Enlarged thyroid with diffuse heterogeneous appearance suggestive of nonspecific thyroiditis. On the current examination, the previous described nodules are not well seen. Margins could be obscured by interval increase in heterogeneous echotexture. Consider continued ultrasound surveillance in 1 year. ACR TI-RADS definitions and recommendations: TI-RADS 1 (benign): 0 points. FNA not needed. TI-RADS 2 (not suspicious): 2 points. FNA not needed. TI-RADS 3 (mildly suspicious): 3 points. * FNA if 2.5 cm or larger, follow up if 1.5 cm or larger (at 1, 3, and 5 years). TI-RADS 4 (moderately suspicious): 4-6 points. * FNA if 1.5 cm or larger, follow up if 1 cm or larger (at 1, 2, 3, and 5 years). TI-RADS 5 (highly suspicious): 7 points or more. * FNA if 1 cm or larger, follow up if 0.5 cm or larger (every year for 5 years). Dictated by: Gerardo Myers M.D. on 04/09/2020 at 16:21 Approved by: Gerardo Myers M.D. on 04/09/2020 at 16:26
== END ==
LOC: US 12:28
PROVIDERS: PCP Family Medicine; Referring Provider Family Medicine; Visit Provider Family Medicine
DX: E04.2 Nontoxic multinodular goiter; E06.3 Autoimmune thyroiditis
CPT/HCPCS: 76536

== ENCOUNTER → 2020-07-25 10:17 | Outpatient (CLI) | payer OTHER, SELFPAY ==
[2020-07-30 16:48] LABS: Lamotrigine Lamictal 3.2 ug/mL (2.0-20.0)
== END ==
PROVIDERS: PCP Family Medicine; Referring Provider Psychiatry & Neurology Neurology; Visit Provider Psychiatry & Neurology Neurology
DX: G40.109 Localization-related (focal) (partial) symptomatic epilepsy and epileptic syndromes with simple partial seizures, not intractable, without status epilepticus (principal)
CPT/HCPCS: 36415; 80175

== ENCOUNTER → 2020-11-05 09:28 | Outpatient (CLI) | payer OTHER, SELFPAY ==
--- NOTE | 2020-11-05 09:31 | DI.RAD.S_ITS ---
PROCEDURE: XR CHEST 2V INDICATIONS: post covid, shortness of breath TECHNIQUE: 2 views of the chest were acquired. COMPARISON: [facility], , CHEST 2 VIEW, 01/27/2017, 19:26. FINDINGS: Surgical changes and devices: None. Lungs and pleura: Scattered subsegmental atelectasis and/or scarring. No focal consolidation. No pleural effusion or pneumothorax. Low lung volumes. Mediastinum: Mediastinal contours are normal. Heart size is normal. Bones and chest wall: No suspicious bony abnormalities. Soft tissues appear unremarkable. IMPRESSION: Scattered subsegmental atelectasis and/or scarring. No focal consolidation. Dictated by: Gerardo Myers M.D. on 11/05/2020 at 10:49 Approved by: Gerardo Myers M.D. on 11/05/2020 at 10:50
[2020-11-05 11:36] LABS: Alanine Aminotransferase 19 IU/L (<35); Albumin 4.2 g/dL (3.5-5.0); Albumin Globulin Ratio 1.5 (1.0-2.8); Alkaline Phosphatase 113 U/L (38-126); Aspartate Aminotransferase 25 IU/L (14-36); BUN Creatinine Ratio 11.1 (6-22); Bilirubin Total 0.4 mg/dL (0.2-1.3); Blood Urea Nitrogen 11 mg/dL (7-17); Calcium 9.3 mg/dL (8.4-10.2); Carbon Dioxide 24 mmol/L (22-32); Chloride 112 mmol/L (98-107); Estimated Glomerular Filt Rate > 60.0 mL/min (>60); Globulin 2.8 g/dL (1.7-4.1); Glucose 100 mg/dL (70-100); HEMOLYSIS < 15 (0-50); Potassium 4.5 mmol/L (3.4-5.1); Sodium 142 mmol/L (137-145)
[2020-11-05 13:21] LABS: TSH w/ Reflex to FT4 5.77 uIU/mL (0.47-4.68)
[2020-11-05 13:45] LABS: Vitamin D 25 Hydroxy (D3) 25.7 ng/mL (30.0-100.0)
[2020-11-05 13:50] LABS: Free T4, Direct Thyroxine 1.27 ng/dL (0.78-2.19)
== END ==
PROVIDERS: PCP Family Medicine; Referring Provider Family Medicine; Visit Provider Family Medicine
DX: R06.02 Shortness of breath (principal); E03.9 Hypothyroidism, unspecified; E66.9 Obesity, unspecified; Z79.899 Other long term (current) drug therapy; Z86.16 Personal history of COVID-19
CPT/HCPCS: 36415; 71046; 80053; 82306; 84439; 84443

== ENCOUNTER → 2020-12-11 19:26 | Outpatient (CLI) | payer OTHER, SELFPAY | PROVIDERS: PCP Family Medicine; Referring Provider Internal Medicine; Visit Provider Internal Medicine | DX: Z23 Encounter for immunization (principal) | CPT/HCPCS: 90471; 90686 ==

== ENCOUNTER → 2020-12-28 12:59 | Outpatient (CLI) | payer OTHER, SELFPAY ==
[2020-12-28] MEDS: COVID-19 VACC #3, MRNA(MOD) 50 MCG/0.25 ML VIAL IM (13:02)
== END ==
PROVIDERS: PCP Family Medicine; Visit Provider Internal Medicine
DX: Z23 Encounter for immunization (principal)
CPT/HCPCS: 0013A; 91301

== ENCOUNTER → 2021-02-15 09:21 | Outpatient (CLI) | payer OTHER, SELFPAY ==
[2021-02-15 10:35] LABS: COVID19 -Nasal RAPID Negative (Negative)
== END ==
PROVIDERS: PCP Family Medicine; Visit Provider Nurse Practitioner Critical Care Medicine
DX: Z20.822 Contact with and (suspected) exposure to COVID-19 (principal)
CPT/HCPCS: 87635

== ENCOUNTER → 2021-05-01 07:24 | Outpatient (CLI) | payer OTHER, SELFPAY ==
[2021-05-01 08:34] LABS: Add Manual Diff / Slide Review NO; Basophils Absolute Auto 0 /uL (0-100); Basophils Percent Auto 0.2 % (0-2); Eosinophils Absolute Auto 400 /uL (0-450); Eosinophils Percent Auto 4.1 % (2-4); Hemoglobin 12.6 g/dL (12.0-16.0); Lymphocytes Absolute Auto 1800 /uL (1100-4500); Lymphocytes Percent Auto 19.2 % (25-40); Mean Corpuscular HGB Conc 34.1 % (30-36); Mean Corpuscular Volume 82.2 fL (80-100); Monocytes Absolute Auto 700 /uL (0-900); Monocytes Percent Auto 7.4 % (3-14); Neutrophils Absolute Auto 6600 /uL (1500-7000); Neutrophils Percent Auto 69.1 % (50-75); Platelet Count 257 X10^3/uL (150-400); White Blood Cell Count 9.5 X10^3/uL (4.5-11.0)
[2021-05-01 09:36] LABS: Alanine Aminotransferase 30 IU/L (<35); Albumin 4.1 g/dL (3.5-5.0); Albumin Globulin Ratio 1.6 (1.0-2.8); Alkaline Phosphatase 126 U/L (38-126); Aspartate Aminotransferase 27 IU/L (14-36); BUN Creatinine Ratio 16.7 (6-22); Bilirubin Total 0.4 mg/dL (0.2-1.3); Blood Urea Nitrogen 16 mg/dL (7-17); Calcium 8.9 mg/dL (8.4-10.2); Carbon Dioxide 18 mmol/L (22-32); Chloride 110 mmol/L (98-107); Estimated Glomerular Filt Rate > 60.0 mL/min (>60); Globulin 2.6 g/dL (1.7-4.1); Glucose 92 mg/dL (70-100); HEMOLYSIS < 15 (0-50); Potassium 4.3 mmol/L (3.4-5.1); Sodium 138 mmol/L (137-145); Total Protein 6.7 g/dL (6.3-8.2)
[2021-05-01 10:07] LABS: TSH w/ Reflex to FT4 3.81 uIU/mL (0.47-4.68)
[2021-05-03 10:45] LABS: Lamotrigine Lamictal 2.6 ug/mL (2.0-20.0)
== END ==
PROVIDERS: Family Medicine; PCP Family Medicine; Referring Provider Psychiatry & Neurology Neurology; Visit Provider Psychiatry & Neurology Neurology
DX: Z51.81 Encounter for therapeutic drug level monitoring (principal); G40.109 Localization-related (focal) (partial) symptomatic epilepsy and epileptic syndromes with simple partial seizures, not intractable, without status epilepticus; E03.9 Hypothyroidism, unspecified
CPT/HCPCS: 80053; 80175; 84443; 85025

== ENCOUNTER → 2021-06-13 16:58 | Outpatient (CLI) | payer OTHER, SELFPAY ==
[2021-06-13 19:38] LABS: COVID19 -Nasal RAPID Negative (Negative)
== END ==
PROVIDERS: PCP Family Medicine; Visit Provider Physician Assistant
DX: Z20.822 Contact with and (suspected) exposure to COVID-19 (principal)
CPT/HCPCS: 87635

== ENCOUNTER → 2021-06-20 12:01 | Outpatient (CLI) | payer OTHER, SELFPAY ==
--- NOTE | 2021-06-20 12:04 | DI.RAD.S_ITS ---
PROCEDURE: XR LUMBAR SPINE MIN 4V INDICATIONS: low back pain TECHNIQUE: 3 views of the lumbar spine acquired. COMPARISON: [facility], CT, CT KIDNEY URETER BLADDER (KUB), 07/29/2019, 6:52. FINDINGS: Bones: 5 nonrib-bearing vertebrae are present. There is normal bony alignment. No vertebral body compression fractures. Facet arthrosis, most prominent at L5-S1. Soft tissues: Overlying bowel gas pattern is normal. No suspicious soft tissue calcifications. Flexion/extension: There is normal range of motion, with preserved normal alignment. IMPRESSION: Facet arthrosis most prominent at L5-S1. Dictated by: Ta Tim M.D. on 06/20/2021 at 12:57 Approved by: Ta Tim M.D. on 06/20/2021 at 13:01
== END ==
PROVIDERS: PCP Family Medicine; Referring Provider Family Medicine; Visit Provider Family Medicine
DX: M47.817 Spondylosis without myelopathy or radiculopathy, lumbosacral region (principal); M54.50 Low back pain, unspecified
CPT/HCPCS: 72100

== ENCOUNTER → 2021-07-26 10:43 | Outpatient (CLI) | payer OTHER, SELFPAY ==
--- NOTE | 2021-07-26 10:44 | DI.RAD.S_ITS ---
PROCEDURE: XR CHEST 2V INDICATIONS: Cough TECHNIQUE: 2 views of the chest were acquired. COMPARISON: [facility], CT, CT KIDNEY URETER BLADDER (KUB), 07/29/2019, 6:52. [facility], CR, XR CHEST 2V, 11/05/2020, 9:53. [facility], CR, CHEST 2 VIEW, 01/27/2017, 19:26. FINDINGS: Surgical changes and devices: None. Lungs and pleura: No consolidation. No pleural effusions or pneumothorax. Mediastinum: Mediastinal contours are normal. Heart size is normal. Bones and chest wall: No suspicious bony abnormalities. Soft tissues appear unremarkable. IMPRESSION: No acute cardiopulmonary abnormality. Dictated by: Daron Denny M.D. on 07/26/2021 at 11:26 Approved by: Daron Denny M.D. on 07/26/2021 at 11:27
== END ==
PROVIDERS: Family Provider Family Medicine; PCP Family Medicine; Referring Provider Nurse Practitioner Family; Visit Provider Nurse Practitioner Family
DX: R05.9 Cough, unspecified (principal)
CPT/HCPCS: 71046

== ENCOUNTER 2021-09-17 12:00 | Outpatient (RCR) | payer OTHER, SELFPAY ==
--- NOTE | 2021-08-07 16:45 | PT.OPPOC ---
Physical, Occupational & Speech Therapy At [facility] Current Diagnoses Stiffness of other specified joint, not elsewhere classified (08/07/21) Low back pain, unspecified (08/07/21) Visit Care Team Role Provider Type Darcy Mendoza MD Attending Provider Physician Family Provider Primary Care Provider Referring Provider Specialty: Family Practice Address: [address] [place] [address], [facility] Phone: Fax: Email: [email or web address] Plan Of Care PT-OP-T Assessment and Plan Start: 08/07/21 16:43 Freq: Status: Active Protocol: Document 08/07/21 16:00 DCW (Rec: 08/08/21 09:36 DCW [id number]) Physical Therapy Assessment Rehab Potential Rehabilitation Potential Good Evaluation Complexity Number of Personal Factors/Comorbidities 1-2 Number of Body Systems Impaired 1-2 Clinical Presentation at Evaluation Stable Impairments Impairments Activity Tolerance,Functional Activities,Functional Mobility ,Pain,Soft Tissue Mobility Goals Two Impairment Pt unable to stand longer than 30 minutes without pain Solution Specialist Goal (LTG) Pt to report 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 LTG Duration 10/07/21 One Impairment Pt does not have an appropriate home exercise program Short Term Goal (STG) Pt to be independent and compliant with an approrpiate HEP STG Duration 09/06/21 Assessment Summary Assessment Pt presents with signs and symptoms consistent with mild- moderate DJD/L5-S1 facet arthrosis. Pt displays some slight hypomobility L3-S1, point specific pain right side of L5-S1, and some hamstring tightness. Overall, some limited lumbar ROM, especially with extension, but overall paraspinal musculature tone WNL, no apparent SI dysfunction, and pt demonstrates good gross motor strength in LEs and core. May benefit from core training to ensure she is using core strength properly, as well as STM and joint mobs on her low back. Physical Therapy Plan Frequency and Duration Frequency of Treatment 1-2x/week Duration of Treatment Two months Plan of Care Start Date 08/07/21 Plan of Care End Date 10/07/21 Therapeutic Interventions Therapeutic Interventions Aquatic Therapy,Home Exercise Program,Joint Mobilizations, Manual Therapy,Neuromuscular Re-education,Patient/Caregiver Education,Self-Care/Home Management,Soft Tissue Mobilization,Therapeutic Activities,Therapeutic Exercises Modalities Cold Pack/Ice Massage,Electric Stimulation,Hot Packs, Ultrasound Next Visit Focus/Plan Next Note Type Treatment Note Next Visit Plan STM, flexibility, core strengthening Plan of Care Dates Plan of Care Start Date 08/07/21 Plan of Care End Date 10/07/21 Electronically Signed by: Bentley Hassan, PT 08/08/21 0937 If you are in agreement with this Plan of Care, please return a signed and dated copy. I have reviewed this Plan of Care and certify that the skilled therapy services above are required to meet the patient?s needs. Physician Signature Date Printed Name and Credentials Clinical Instructor Signature Printed Name and Credentials
--- NOTE | 2021-08-07 16:45 | PT.OIE ---
Current Diagnoses Stiffness of other specified joint, not elsewhere classified (08/07/21) Low back pain, unspecified (08/07/21) Past Medical History (Last Reviewed 06/19/21 @ 17:54 by JERRY Lee) Acute maxillary sinusitis Allergic rhinitis Anxiety Bilateral nephrolithiasis Cervical dystonia Chronic headaches COVID-19 Dysmenorrhea (11/09/14) GERD (gastroesophageal reflux disease) Goiter History of dysmenorrhea History of nephrolithiasis Hydronephrosis, right Kidney stone Long-term use of high-risk medication Lymphocytic thyroiditis Migraine without aura and without status migrainosus, not intractable (04/07/15) Needlestick injury with contaminated needle Pharyngitis Recurrent nephrolithiasis Seizure disorder (11/09/14) Thyroid nodule Past Surgical History (Last Reviewed 06/19/21 @ 17:54 by JERRY Lee) History of skin graft Visit Care Team Role Provider Type Darcy Mendoza MD Attending Provider Physician Family Provider Primary Care Provider Referring Provider Specialty: Family Practice Address: [address] [place] [address], [facility] Phone: Fax: Email: [email or web address] Initial Evaluation PT-OP-A Visit Information Start: 08/07/21 16:43 Freq: Status: Active Protocol: Document 08/07/21 16:00 DCW (Rec: 08/07/21 18:14 DCW [id number]) Out-Patient Physical Therapy Visit Information Visit Information Visit Type Initial Evaluation Visit Start Time 16:00 Visit Stop Time 16:40 Total Visit Minutes 40 Visit Number 1 Number of UPHOLSTERER APPRENTICE Visits 0 Evaluation Information Evaluation Date 08/07/21 PT-OP-B Current Condition Start: 08/07/21 16:43 Freq: Status: Active Protocol: Document 08/07/21 16:00 DCW (Rec: 08/07/21 18:14 DCW [id number]) Current Condition History of Current Condition Onset Date ~6 months Current Complaints Low back pain, especially when standing for an extended period of time. History of Current Condition Pt is a 45 year old female presenting with a ~6 month history of low back pain. Pt reports that if she stands longer than 30 minutes, or when she gets up in the morning, she gets low back pain, which at it's worst she rates as a 6/10. Pt notes that her pain has largely been unchanged since it began. Notes she has not had any radicular symptoms, her pain is in a very specific spot slightly right of midline (she points to L5-S1). Also notes some slight increase in low back pain when supine on the plinth when her knees are extended flat. Pt reports that the pain does not prevent her from doing anything, but her house chores do tend to take longer, because she has to stop and take a break when the pain begins to get worse. PT-OP-C Subjective Start: 08/07/21 16:43 Freq: Status: Active Protocol: Document 08/07/21 16:00 DCW (Rec: 08/07/21 18:14 DCW [id number]) OP-PT Subjective Patient Comments Patient Comments It hasn't really changed much since it started, it has just stayed the same. Patient Reported Progress Same Patient Questionnaires Oswestry Low Back Index Oswestry Score 5/50 = 10% Oswestry Impairment 1 to 19% Impaired (Score 1-19) OP-PT Pain Assessment Pain Assessment Grid Paper Pain Assessment Grid Completed Yes Location Lower Back Intensity 6 Scale Used Numeric (0 - 10) Description Pressure,Throbbing Frequency Intermittent Pain Aggravating Factors Standing Pain Alleviating Factors Rest PT-OP-F Manual Assessment Start: 08/07/21 16:43 Freq: Status: Active Protocol: Document 08/07/21 16:00 DCW (Rec: 08/07/21 18:14 DCW [id number]) Manual Assessments Soft Tissue Assessment Soft Tissue Mobility Assessment Minimal tone along low back paraspinals, no notable tenderness to palpation Joint Mobility Assessment Joint Mobility Assessment Mild-moderate vertebral hypomobility L3-S1 PT-OP-K Range of Motion Start: 08/07/21 16:43 Freq: Status: Active Protocol: Document 08/07/21 16:00 DCW (Rec: 08/07/21 18:19 DCW [id number]) Lumbar Spine Range of Motion Lumbar Spine Active Degrees Testing Position Standing Flexion 45 Extension 15 Lateral Flexion Left 54 Lateral Flexion Right 54 ROM Limitations Bony Restriction Comments Lateral flexion measured from floor to finger tips PT-OP-L Special Tests Start: 08/07/21 16:43 Freq: Status: Active Protocol: Document 08/07/21 16:00 DCW (Rec: 08/07/21 18:19 DCW [id number]) Special Tests Lumbar Spine Special Tests Lateral SI Compression Test Results Negative RAMYA Test Results Negative Vertical Spine Loading Test Results Negative Straight Leg Raise Test Results Mild Hamstring tightness Standing Flexion Test Results Negative Slump Test Results Negative Compression Test Results Negative A-P Shearing Test Results Negative PT-OP-M Strength Start: 08/07/21 16:43 Freq: Status: Active Protocol: Document 08/07/21 16:00 DCW (Rec: 08/07/21 18:19 [facility] [id number]) Trunk Strength Trunk Manual Muscle Testing Core Stabilization Good PPT, appropriate TrA activation, able to hold for 5 + seconds Hip Strength Hip Manual Muscle Testing Right Flexion (L2) 4+ Good+ Abduction 4+ Good+ Adduction 4+ Good+ Left Flexion (L2) 4+ Good+ Abduction 4+ Good+ Adduction 4+ Good+ Knee Strength Knee Manual Muscle Testing Right Flexion (S2) 4+ Good+ Extension (L3) 4+ Good+ Left Flexion (S2) 4+ Good+ Extension (L3) 4+ Good+ PT-OP-Q Treatments Start: 08/07/21 16:43 Freq: Status: Active Protocol: Document 08/07/21 16:00 DCW (Rec: 08/07/21 18:19 [facility] [id number]) Therapeutic Exercises Supine Exercises Hamstring stretch Supine Exercise Name Hamstring stretch Side bilateral PPT /c TrA Supine Exercise Name PPT /c TrA contraction, then added marching Sidelying Exercises Open Book Sidelying Exercise Name Open Book Side bilateral PT-OP-T Assessment and Plan Start: 08/07/21 16:43 Freq: Status: Active Protocol: Document 08/07/21 16:00 DC (Rec: 08/08/21 09:36 [facility] [id number]) Physical Therapy Assessment Rehab Potential Rehabilitation Potential Good Evaluation Complexity Number of Personal Factors/Comorbidities 1-2 Number of Body Systems Impaired 1-2 Clinical Presentation at Evaluation Stable Impairments Impairments Activity Tolerance,Functional Activities,Functional Mobility ,Pain,Soft Tissue Mobility Goals Two Impairment Pt unable to stand longer than 30 minutes without pain 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 LTG Duration 10/07/21 One Impairment Pt does not have an appropriate home exercise program Short Term Goal (STG) Pt to be independent and compliant with an approrpiate HEP STG Duration 09/06/21 Assessment Summary Assessment Pt presents with signs and symptoms consistent with mild- moderate DJD/L5-S1 facet arthrosis. Pt displays some slight hypomobility L3-S1, point specific pain right side of L5-S1, and some hamstring tightness. Overall, some limited lumbar ROM, especially with extension, but overall paraspinal musculature tone WNL, no apparent SI dysfunction, and pt demonstrates good gross motor strength in LEs and core. May benefit from core training to ensure she is using core strength properly, as well as STM and joint mobs on her low back. Physical Therapy Plan Frequency and Duration Frequency of Treatment 1-2x/week Duration of Treatment Two months Plan of Care Start Date 08/07/21 Plan of Care End Date 10/07/21 Therapeutic Interventions Therapeutic Interventions Aquatic Therapy,Home Exercise Program,Joint Mobilizations, Manual Therapy,Neuromuscular Re-education,Patient/Caregiver Education,Self-Care/Home Management,Soft Tissue Mobilization,Therapeutic Activities,Therapeutic Exercises Modalities Cold Pack/Ice Massage,Electric Stimulation,Hot Packs, Ultrasound Next Visit Focus/Plan Next Note Type Treatment Note Next Visit Plan STM, flexibility, core strengthening
--- NOTE | 2021-08-23 12:03 | PT.OTN ---
Current Diagnoses Stiffness of other specified joint, not elsewhere classified (08/23/21) Low back pain, unspecified (08/23/21) Physical Therapy Treatment Note PT-OP-A Visit Information Start: 08/07/21 16:43 Freq: Status: Active Protocol: Document 08/23/21 11:20 DCW (Rec: 08/23/21 12:03 DCW [id number]) Out-Patient Physical Therapy Visit Information Visit Information Visit Type Treatment Note Visit Start Time 11:20 Visit Stop Time 12:00 Total Visit Minutes 40 Visit Number 2 Number of SERVICE ORDER DISPATCHER CHIEF Visits 0 Evaluation Information Evaluation Date 08/07/21 PT-OP-B Current Condition Start: 08/07/21 16:43 Freq: Status: Active Protocol: Document 08/07/21 16:00 DCW (Rec: 08/07/21 18:14 DCW [id number]) Current Condition History of Current Condition Onset Date ~6 months Current Complaints Low back pain, especially when standing for an extended period of time. History of Current Condition Pt is a 45 year old female presenting with a ~6 month history of low back pain. Pt reports that if she stands longer than 30 minutes, or when she gets up in the morning, she gets low back pain, which at it's worst she rates as a 6/10. Pt notes that her pain has largely been unchanged since it began. Notes she has not had any radicular symptoms, her pain is in a very specific spot slightly right of midline (she points to L5-S1). Also notes some slight increase in low back pain when supine on the plinth when her knees are extended flat. Pt reports that the pain does not prevent her from doing anything, but her house chores do tend to take longer, because she has to stop and take a break when the pain begins to get worse. PT-OP-C Subjective Start: 08/07/21 16:43 Freq: Status: Active Protocol: Document 08/23/21 11:20 DCW (Rec: 08/23/21 12:03 DCW [id number]) OP-PT Subjective Patient Comments Patient Comments It's better, I think. I don't do the exercises as often as I'd like. PT-OP-F Manual Assessment Start: 08/07/21 16:43 Freq: Status: Active Protocol: Document 08/07/21 16:00 DCW (Rec: 08/07/21 18:14 DCW [id number]) Manual Assessments Soft Tissue Assessment Soft Tissue Mobility Assessment Minimal tone along low back paraspinals, no notable tenderness to palpation Joint Mobility Assessment Joint Mobility Assessment Mild-moderate vertebral hypomobility L3-S1 PT-OP-K Range of Motion Start: 08/07/21 16:43 Freq: Status: Active Protocol: Document 08/07/21 16:00 DCW (Rec: 08/07/21 18:19 DCW [id number]) Lumbar Spine Range of Motion Lumbar Spine Active Degrees Testing Position Standing Flexion 45 Extension 15 Lateral Flexion Left 54 Lateral Flexion Right 54 ROM Limitations Bony Restriction Comments Lateral flexion measured from floor to finger tips PT-OP-L Special Tests Start: 08/07/21 16:43 Freq: Status: Active Protocol: Document 08/07/21 16:00 DCW (Rec: 08/07/21 18:19 DCW [id number]) Special Tests Lumbar Spine Special Tests Lateral SI Compression Test Results Negative RAMYA Test Results Negative Vertical Spine Loading Test Results Negative Straight Leg Raise Test Results Mild Hamstring tightness Standing Flexion Test Results Negative Slump Test Results Negative Compression Test Results Negative A-P Shearing Test Results Negative PT-OP-M Strength Start: 08/07/21 16:43 Freq: Status: Active Protocol: Document 08/07/21 16:00 DCW (Rec: 08/07/21 18:19 DCW [id number]) Trunk Strength Trunk Manual Muscle Testing Core Stabilization Good PPT, appropriate TrA activation, able to hold for 5 + seconds Hip Strength Hip Manual Muscle Testing Right Flexion (L2) 4+ Good+ Abduction 4+ Good+ Adduction 4+ Good+ Left Flexion (L2) 4+ Good+ Abduction 4+ Good+ Adduction 4+ Good+ Knee Strength Knee Manual Muscle Testing Right Flexion (S2) 4+ Good+ Extension (L3) 4+ Good+ Left Flexion (S2) 4+ Good+ Extension (L3) 4+ Good+ PT-OP-Q Treatments Start: 08/07/21 16:43 Freq: Status: Active Protocol: Document 08/23/21 11:20 DCW (Rec: 08/23/21 12:03 DCW [id number]) Gym Equipment Cable Column (Body Solid) Pallof Press Resistance 20# Therapeutic Ball Bridging Exercise Details Bridging /c feet on ball Ball Size/Color Red - 55 cm Body Position Supine LTR Exercise Details Low Trunk Rotation Ball Size/Color Red - 55 cm Body Position Supine Resisted Rotations Exercise Details Resisted trunk rotations Ball Size/Color Green - 65 cm Lv 3 T-band Body Position Sitting Pelvic Circles Exercise Details Pelvic tilts/circles Ball Size/Color Green - 65 cm Body Position Sitting Therapeutic Exercises Supine Exercises Hamstring stretch Supine Exercise Name Hamstring stretch Side bilateral Sidelying Exercises Abduction Sidelying Exercise Name SL Hip Abduction Side bilateral Reverse Clamshell Sidelying Exercise Name Reverse Clamshell Side bilateral Clamshell Sidelying Exercise Name Clamshell Side bilateral Manual Therapy Treatment Joint Mobilizations Lumbar Joint L1-L5 mobs Direction P->A Grade III PT-OP-T Assessment and Plan Start: 08/07/21 16:43 Freq: Status: Active Protocol: Document 08/23/21 11:20 DCW (Rec: 08/23/21 12:03 DCW [id number]) Physical Therapy Assessment Impairments Impairments Activity Tolerance,Functional Activities,Functional Mobility ,Pain,Soft Tissue Mobility Goals Two Impairment Pt unable to stand longer than 30 minutes without pain Curtain Framer Goal (LTG) Pt to report standing for >one hour without pain 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 LTG Duration 10/07/21 One Impairment Pt does not have an appropriate home exercise program Short Term Goal (STG) Pt to be independent and compliant with an appropriate HEP STG Duration 09/06/21 Assessment Summary Assessment Pt had minimal complaints of pain, mild soreness with pelvic circles and direct palpation of right L5. Given new HEP handout with additional exercises. Physical Therapy Plan Frequency and Duration Frequency of Treatment 1-2x/week Duration of Treatment Two months Plan of Care Start Date 08/07/21 Plan of Care End Date 10/07/21 Therapeutic Interventions Therapeutic Interventions Aquatic Therapy,Home Exercise Program,Joint Mobilizations, Manual Therapy,Neuromuscular Re-education,Patient/Caregiver Education,Self-Care/Home Management,Soft Tissue Mobilization,Therapeutic Activities,Therapeutic Exercises Modalities Cold Pack/Ice Massage,Electric Stimulation,Hot Packs, Ultrasound Next Visit Focus/Plan Next Note Type Treatment Note Next Visit Plan STM, flexibility, core strengthening
--- NOTE | 2021-09-17 12:49 | PT.OTN ---
Current Diagnoses Stiffness of other specified joint, not elsewhere classified (09/17/21) Low back pain, unspecified (09/17/21) Physical Therapy Treatment Note PT-OP-A Visit Information Start: 08/07/21 16:43 Freq: Status: Active Protocol: Document 09/17/21 12:00 DCW (Rec: 09/17/21 12:48 DCW [id number]) Out-Patient Physical Therapy Visit Information Visit Information Visit Type Treatment Note Visit Start Time 12:00 Visit Stop Time 12:45 Total Visit Minutes 45 Visit Number 3 Number of TOP DISTRIBUTION EXECUTIVE Visits 0 Evaluation Information Evaluation Date 08/07/21 PT-OP-B Current Condition Start: 08/07/21 16:43 Freq: Status: Active Protocol: Document 08/07/21 16:00 DCW (Rec: 08/07/21 18:14 DCW [id number]) Current Condition History of Current Condition Onset Date ~6 months Current Complaints Low back pain, especially when standing for an extended period of time. History of Current Condition Pt is a 45 year old female presenting with a ~6 month history of low back pain. Pt reports that if she stands longer than 30 minutes, or when she gets up in the morning, she gets low back pain, which at it's worst she rates as a 6/10. Pt notes that her pain has largely been unchanged since it began. Notes she has not had any radicular symptoms, her pain is in a very specific spot slightly right of midline (she points to L5-S1). Also notes some slight increase in low back pain when supine on the plinth when her knees are extended flat. Pt reports that the pain does not prevent her from doing anything, but her house chores do tend to take longer, because she has to stop and take a break when the pain begins to get worse. PT-OP-C Subjective Start: 08/07/21 16:43 Freq: Status: Active Protocol: Document 09/17/21 12:00 DCW (Rec: 09/17/21 12:48 DCW [id number]) OP-PT Subjective Patient Comments Patient Comments Overall it's feeling okay right now. PT-OP-F Manual Assessment Start: 08/07/21 16:43 Freq: Status: Active Protocol: Document 08/07/21 16:00 DCW (Rec: 08/07/21 18:14 DCW [id number]) Manual Assessments Soft Tissue Assessment Soft Tissue Mobility Assessment Minimal tone along low back paraspinals, no notable tenderness to palpation Joint Mobility Assessment Joint Mobility Assessment Mild-moderate vertebral hypomobility L3-S1 PT-OP-K Range of Motion Start: 08/07/21 16:43 Freq: Status: Active Protocol: Document 08/07/21 16:00 DCW (Rec: 08/07/21 18:19 DCW [id number]) Lumbar Spine Range of Motion Lumbar Spine Active Degrees Testing Position Standing Flexion 45 Extension 15 Lateral Flexion Left 54 Lateral Flexion Right 54 ROM Limitations Bony Restriction Comments Lateral flexion measured from floor to finger tips PT-OP-L Special Tests Start: 08/07/21 16:43 Freq: Status: Active Protocol: Document 08/07/21 16:00 DCW (Rec: 08/07/21 18:19 PAW [id number]) Special Tests Lumbar Spine Special Tests Lateral SI Compression Test Results Negative RAMYA Test Results Negative Vertical Spine Loading Test Results Negative Straight Leg Raise Test Results Mild Hamstring tightness Standing Flexion Test Results Negative Slump Test Results Negative Compression Test Results Negative A-P Shearing Test Results Negative PT-OP-M Strength Start: 08/07/21 16:43 Freq: Status: Active Protocol: Document 08/07/21 16:00 DCW (Rec: 08/07/21 18:19 PAW [id number]) Trunk Strength Trunk Manual Muscle Testing Core Stabilization Good PPT, appropriate TrA activation, able to hold for 5 + seconds Hip Strength Hip Manual Muscle Testing Right Flexion (L2) 4+ Good+ Abduction 4+ Good+ Adduction 4+ Good+ Left Flexion (L2) 4+ Good+ Abduction 4+ Good+ Adduction 4+ Good+ Knee Strength Knee Manual Muscle Testing Right Flexion (S2) 4+ Good+ Extension (L3) 4+ Good+ Left Flexion (S2) 4+ Good+ Extension (L3) 4+ Good+ PT-OP-Q Treatments Start: 08/07/21 16:43 Freq: Status: Active Protocol: Document 09/17/21 12:00 DCW (Rec: 09/17/21 12:48 DCW [id number]) Gym Equipment Cable Column (Body Solid) Pallof Press Resistance 20# Shuttle Recovery Unilateral Squats Resistance 62# Bilateral Squats Resistance 125# Therapeutic Ball LTR Exercise Details Low Trunk Rotation Ball Size/Color Red - 55 cm Body Position Supine Therapeutic Exercises Standing Exercises IR/ER Side bilateral Resistance Lv 3 Shoulder Extension Side bilateral Resistance Lv 3 Rows Side bilateral Resistance Lv 3 Manual Therapy Treatment Soft Tissue Mobilization Lumbar Body Location B Lumbar paraspinals Mobilization Type Sustained Pressure,Trigger Point Release Body Position Prone Joint Mobilizations Lumbar Joint L1-L5 mobs Direction P->A Grade III PT-OP-T Assessment and Plan Start: 08/07/21 16:43 Freq: Status: Active Protocol: Document 09/17/21 12:00 DCW (Rec: 09/17/21 12:48 DCW [id number]) Physical Therapy Assessment Impairments Impairments Activity Tolerance,Functional Activities,Functional Mobility ,Pain,Soft Tissue Mobility Goals Two Impairment Pt unable to stand longer than 30 minutes without pain Senior Procurement Manager Goal (LTG) Pt to report standing for >one 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 LTG Duration Met One Impairment Pt does not have an appropriate home exercise program Short Term Goal (STG) Pt to be independent and compliant with an approrpiate HEP STG Duration Met Assessment Summary Assessment Pt tolerating treatment well today, does not appear to have an ongoing complaints. Pt happy with her current HEP, and feels she is appropriate for discharge at this time. Physical Therapy Plan Frequency and Duration Frequency of Treatment 1-2x/week Duration of Treatment Two months Plan of Care Start Date 08/07/21 Plan of Care End Date 10/07/21 Therapeutic Interventions Therapeutic Interventions Aquatic Therapy,Home Exercise Program,Joint Mobilizations, Manual Therapy,Neuromuscular Re-education,Patient/Caregiver Education,Self-Care/Home Management,Soft Tissue Mobilization,Therapeutic Activities,Therapeutic Exercises Modalities Cold Pack/Ice Massage,Electric Stimulation,Hot Packs, Ultrasound Next Visit Focus/Plan Next Note Type Treatment Note Next Visit Plan STM, flexibility, core strengthening
== END 2021-10-10 13:31 ==
LOC: PHYS 12:00
PROVIDERS: Family Provider Family Medicine; PCP Family Medicine; Referring Provider Family Medicine; Visit Provider Family Medicine
DX: M54.50 Low back pain, unspecified (principal); M25.69 Stiffness of other specified joint, not elsewhere classified
CPT/HCPCS: 97110; 97140; 97161

== ENCOUNTER → 2021-09-28 07:50 | Outpatient (CLI) | payer OTHER, SELFPAY | PROVIDERS: Family Provider Family Medicine; PCP Pediatrics; Visit Provider Physician Assistant | DX: R30.0 Dysuria (principal) | CPT/HCPCS: 87086 ==

== ENCOUNTER 2021-11-28 14:30 | Outpatient (RCR) | payer OTHER, SELFPAY ==
--- NOTE | 2021-10-17 18:29 | PT.OPPOC ---
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) Other dystonia (10/17/21) Stiffness of other specified joint, not elsewhere classified (10/17/21) Visit Care Team Role Provider Type Wiley Carvalho MD Attending Provider Physician Family Provider Primary Care Provider Referring Provider Specialty: Internal Medicine Pediatrics Address: [address] [place] [address], [phone] Phone: Fax: Email: [email or web address] Plan Of Care PT-OP-T Assessment and Plan Start: 10/17/21 18:03 Freq: Status: Active Protocol: Document 10/17/21 16:45 DCW (Rec: 10/17/21 18:29 DCW [id number]) Physical Therapy Assessment Rehab Potential Rehabilitation Potential Good Evaluation Complexity Number of Personal Factors/Comorbidities 1-2 Number of Body Systems Impaired 1-2 Clinical Presentation at Evaluation Stable Impairments Impairments ROM,Soft Tissue Mobility, Strength,Tone Goals Two Impairment Cervical rotation restricted to 55?(L) and 60? (R) Longterm Goal (LTG) Pt to demonstrate decreased cervical tone by improving cervical rotation to at least 75? bilaterall LTG Duration 12/17/21 One Impairment Pt does not have an appropriate home exercise program Short Term Goal (STG) Pt to be independent and complaint with an appropriate HEP STG Duration 11/16/21 Assessment Summary Assessment Pt presents with mild-moderate left-sided cervical tone consistent with referring diagnosis of spasmodic torticollis. Pt doing fairly well with ongoing treatment using Botox and muscle relaxers, however continues to experience fairly constant discomfort due to tightness. Pt does show some limitations with her cervical ROM, with flexion and extension limited to 55? and 45? respectively, and cervical rotation limited to 55? (L) and 60? (R). Pt should benefit from skilled therapy focusing on STM and gentle strengthening. May also try gentle stretching/ flexibility, although it should be kept in mind that this is not always successful with spasmodic torticollis. Physical Therapy Plan Frequency and Duration Frequency of Treatment 1-2x/week Duration of Treatment Two months Plan of Care Start Date 10/17/21 Plan of Care End Date 12/17/21 Therapeutic Interventions Therapeutic Interventions Aquatic Therapy,Home Exercise Program,Joint Mobilizations, Manual Therapy,Patient/ Caregiver Education,Self-Care/ Home Management,Soft Tissue Mobilization,Therapeutic Activities,Therapeutic Exercises Next Visit Focus/Plan Next Note Type Treatment Note Next Visit Plan STM, stretching, cervical strengthening Plan of Care Dates Plan of Care Start Date 10/17/21 Plan of Care End Date 12/17/21 Electronically Signed by: Bentley Hassan, PT 10/18/21 1503 If you are in agreement with this Plan of Care, please return a signed and dated copy. I have reviewed this Plan of Care and certify that the skilled therapy services above are required to meet the patient?s needs. Physician Signature Date Printed Name and Credentials Clinical Instructor Signature Printed Name and Credentials
--- NOTE | 2021-10-17 18:29 | PT.OIE ---
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) Other dystonia (10/17/21) Stiffness of other specified joint, not elsewhere classified (10/17/21) Past Medical History (Last Updated 10/01/21 @ 11:21 by Wiley Carvalho MD) Acute maxillary sinusitis Allergic rhinitis Anxiety Bilateral nephrolithiasis Cervical dystonia Chronic headaches Chronic insomnia COVID-19 Dysmenorrhea (11/09/14) Encounter for contraceptive management GERD (gastroesophageal reflux disease) Goiter History of dysmenorrhea History of nephrolithiasis Hydronephrosis, right Kidney stone Long-term use of high-risk medication Lymphocytic thyroiditis Migraine without aura and without status migrainosus, not intractable (04/07/15) Needlestick injury with contaminated needle Pharyngitis Recurrent nephrolithiasis Seizure disorder (11/09/14) Thyroid nodule Past Surgical History (Last Reviewed 06/19/21 @ 17:54 by JERRY Lee) History of skin graft Visit Care Team Role Provider Type Wiley Carvalho MD Attending Provider Physician Family Provider Primary Care Provider Referring Provider Specialty: Internal Medicine Pediatrics Address: [address] [place] [address], [facility] Phone: Fax: Email: [email or web address] Physical Therapy Initial Evaluation PT-OP-A Visit Information Start: 10/17/21 18:03 Freq: Status: Active Protocol: Document 10/17/21 16:45 DCW (Rec: 10/17/21 18:06 DCW [id number]) Out-Patient Physical Therapy Visit Information Visit Information Visit Type Initial Evaluation Visit Start Time 16:45 Visit Stop Time 17:25 Total Visit Minutes 40 Visit Number 1 Number of STUDY ASSISTANT Visits 0 Evaluation Information Evaluation Date 10/17/21 PT-OP-B Current Condition Start: 10/17/21 18:03 Freq: Status: Active Protocol: Document 10/17/21 16:45 DCW (Rec: 10/17/21 18:19 DCW [id number]) Current Condition History of Current Condition Onset Date ~10 year history Current Complaints Left-sided tightness in neck History of Current Condition Pt is a 45 year old female presenting with a 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 Pt already gets Botox injections every three months for the past few years, and takes muscle relaxers daily. Notes that stress, exercise, or stopping her muscle relaxers will lead to increased muscle tone. Uses heat, which doesn't really help. Pt just largely complains of an overall constant sensation of tightness in her neck, and would just like anything that can help. PT-OP-C Subjective Start: 10/17/21 18:03 Freq: Status: Active Protocol: Document 10/17/21 16:45 DCW (Rec: 10/17/21 18:12 DCW [id number]) OP-PT Subjective Patient Comments Patient Comments Pain doesn't describe what I feel in my neck. My neck is very tight like a muscle that doesn't stop flexing. It radiates into my jaw. If I'm stressed out, it's tighter, if I don't take my muscle relaxers, it's tighter, if I were to exercise, it gets tighter. I can turn my head. My neck is always just super tight and uncomfortable. Patient Questionnaires Neck Disability Index NDI Score 11/50 = 22% Neck Disability Index Impairment 20 to 39% Impaired (Score 10- 19) PT-OP-F Manual Assessment Start: 10/17/21 18:03 Freq: Status: Active Protocol: Document 10/17/21 16:45 DCW (Rec: 10/17/21 18:12 DCW [id number]) Manual Assessments Soft Tissue Assessment Soft Tissue Mobility Assessment Moderate tone along left scalenes, left SCM. Mild tone left upper trap PT-OP-K Range of Motion Start: 10/17/21 18:03 Freq: Status: Active Protocol: Document 10/17/21 16:45 DCW (Rec: 10/17/21 18:12 DCW [id number]) Cervical Spine Range of Motion Cervical Spine Active Degrees Testing Position Sitting Flexion 55 Extension 45 Rotation Left 55 Rotation Right 60 Lateral Flexion Left 30 Lateral Flexion Right 30 ROM Limitations Soft Tissue Tightness,Muscle Tone PT-OP-M Strength Start: 10/17/21 18:03 Freq: Status: Active Protocol: Document 10/17/21 16:45 DCW (Rec: 10/17/21 18:12 DCW [id number]) Cervical Spine Strength Cervical Spine Manual Muscle Testing Testing Position Sitting Flexion (C1-2) 4 Good Extension 4 Good Rotation Left 4+ Good+ Rotation Right 4+ Good+ Lateral Flexion Left (C3) 4 Good Lateral Flexion Right (C3) 4 Good PT-OP-Q Treatments Start: 10/17/21 18:03 Freq: Status: Active Protocol: Document 10/17/21 16:45 DCW (Rec: 10/17/21 18:06 [facility] [id number]) Therapeutic Exercises Supine Exercises Chin tuck Supine Exercise Name Chin tuck/head lift Sitting Exercises Cervical isometric Sitting Exercise Name Cervical isometric strengthening Side bilateral Comments lateral flexion PT-OP-T Assessment and Plan Start: 10/17/21 18:03 Freq: Status: Active Protocol: Document 10/17/21 16:45 DCW (Rec: 10/17/21 18:29 [facility] [id number]) Physical Therapy Assessment Rehab Potential Rehabilitation Potential Good Evaluation Complexity Number of Personal Factors/Comorbidities 1-2 Number of Body Systems Impaired 1-2 Clinical Presentation at Evaluation Stable Impairments Impairments ROM,Soft Tissue Mobility, Strength,Tone Goals Two Impairment Cervical rotation restricted to 55?(L) and 60? (R) Adult Live In Caregiver Goal (LTG) Pt to demonstrate decreased cervical tone by improving cervical rotation to at least 75? bilaterally LTG Duration 12/17/21 One Impairment Pt does not have an appropriate home exercise program Short Term Goal (STG) Pt to be independent and complaint with an appropriate HEP STG Duration 11/16/21 Assessment Summary Assessment Pt presents with mild-moderate left-sided cervical tone consistent with referring diagnosis of spasmodic torticollis. Pt doing fairly well with ongoing treatment using Botox and muscle relaxers, however continues to experience fairly constant discomfort due to tightness. Pt does show some limitations with her cervical ROM, with flexion and extension limited to 55? and 45? respectively, and cervical rotation limited to 55? (L) and 60? (R). Pt should benefit from skilled therapy focusing on STM and gentle strengthening. May also try gentle stretching/ flexibility, although it should be kept in mind that this is not always successful with spasmodic torticollis. Physical Therapy Plan Frequency and Duration Frequency of Treatment 1-2x/week Duration of Treatment Two months Plan of Care Start Date 10/17/21 Plan of Care End Date 12/17/21 Therapeutic Interventions Therapeutic Interventions Aquatic Therapy,Home Exercise Program,Joint Mobilizations, Manual Therapy,Patient/ Caregiver Education,Self-Care/ Home Management,Soft Tissue Mobilization,Therapeutic Activities,Therapeutic Exercises Next Visit Focus/Plan Next Note Type Treatment Note Next Visit Plan STM, stretching, cervical strengthening
--- NOTE | 2021-10-17 18:29 | PT.OPPOC ---
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) Other dystonia (10/17/21) Stiffness of other specified joint, not elsewhere classified (10/17/21) Visit Care Team Role Provider Type Wiley Carvalho MD Attending Provider Physician Family Provider Primary Care Provider Referring Provider Specialty: Internal Medicine Pediatrics Address: [address] [place] [address], [address] Phone: Fax: Email: [email or web address] Plan Of Care PT-OP-T Assessment and Plan Start: 10/17/21 18:03 Freq: Status: Active Protocol: Document 10/17/21 16:45 DCW (Rec: 10/17/21 18:29 DCW [id number]) Physical Therapy Assessment Rehab Potential Rehabilitation Potential Good Evaluation Complexity Number of Personal Factors/Comorbidities 1-2 Number of Body Systems Impaired 1-2 Clinical Presentation at Evaluation Stable Impairments Impairments ROM,Soft Tissue Mobility, Strength,Tone Goals Two Impairment Cervical rotation restricted to 55?(L) and 60? (R) Retirement Goal (LTG) Pt to demonstrate decreased cervical tone by improving cervical rotation to at least 75? bilaterall LTG Duration 12/17/21 One Impairment Pt does not have an appropriate home exercise program Short Term Goal (STG) Pt to be independent and complaint with an appropriate HEP STG Duration 11/16/21 Assessment Summary Assessment Pt presents with mild-moderate left-sided cervical tone consistent with referring diagnosis of spasmodic torticollis. Pt doing fairly well with ongoing treatment using Botox and muscle relaxers, however continues to experience fairly constant discomfort due to tightness. Pt does show some limitations with her cervical ROM, with flexion and extension limited to 55? and 45? respectively, and cervical rotation limited to 55? (L) and 60? (R). Pt should benefit from skilled therapy focusing on STM and gentle strengthening. May also try gentle stretching/ flexibility, although it should be kept in mind that this is not always successful with spasmodic torticollis. Physical Therapy Plan Frequency and Duration Frequency of Treatment 1-2x/week Duration of Treatment Two months Plan of Care Start Date 10/17/21 Plan of Care End Date 12/17/21 Therapeutic Interventions Therapeutic Interventions Aquatic Therapy,Home Exercise Program,Joint Mobilizations, Manual Therapy,Patient/ Caregiver Education,Self-Care/ Home Management,Soft Tissue Mobilization,Therapeutic Activities,Therapeutic Exercises Next Visit Focus/Plan Next Note Type Treatment Note Next Visit Plan STM, stretching, cervical strengthening Plan of Care Dates Plan of Care Start Date 10/17/21 Plan of Care End Date 12/17/21 Electronically Signed by: Bentley Hassan, PT 10/17/21 1966 If you are in agreement with this Plan of Care, please return a signed and dated copy. I have reviewed this Plan of Care and certify that the skilled therapy services above are required to meet the patient?s needs. Physician Signature Date Printed Name and Credentials Clinical Instructor Signature Printed Name and Credentials
--- NOTE | 2021-10-24 14:32 | PT.OTN ---
Current Diagnoses Spasmodic torticollis (10/24/21) Other dystonia (10/24/21) Stiffness of other specified joint, not elsewhere classified (10/24/21) Physical Therapy Treatment Note PT-OP-A Visit Information Start: 10/17/21 18:03 Freq: Status: Active Protocol: Document 10/24/21 13:45 DCW (Rec: 10/24/21 14:32 DCW [id number]) Out-Patient Physical Therapy Visit Information Visit Information Visit Type Treatment Note Visit Start Time 13:45 Visit Stop Time 14:30 Total Visit Minutes 45 Visit Number 2 Number of HOUSE MOVING SUPERVISOR Visits 0 Evaluation Information Evaluation Date 10/17/21 PT-OP-B Current Condition Start: 10/17/21 18:03 Freq: Status: Active Protocol: Document 10/17/21 16:45 DCW (Rec: 10/17/21 18:19 DCW [id number]) Current Condition History of Current Condition Onset Date ~10 year history Current Complaints Left-sided tightness in neck History of Current Condition Pt is a 45 year old female presenting with a 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 Pt already gets Botox injections every three months for the past few years, and takes muscle relaxers daily. Notes that stress, exercise, or stopping her muscle relaxers will lead to increased muscle tone. Uses heat, which doesn't really help. Pt just largely complains of an overall constant sensation of tightness in her neck, and would just like anything that can help. PT-OP-C Subjective Start: 10/17/21 18:03 Freq: Status: Active Protocol: Document 10/24/21 13:45 DCW (Rec: 10/24/21 14:32 DCW [id number]) OP-PT Subjective Patient Comments Patient Comments Pt notes her neck felt better following her initial evaluation, at least for the remainder of the day. PT-OP-F Manual Assessment Start: 10/17/21 18:03 Freq: Status: Active Protocol: Document 10/17/21 16:45 DCW (Rec: 10/17/21 18:12 DCW [id number]) Manual Assessments Soft Tissue Assessment Soft Tissue Mobility Assessment Moderate tone along left scalenes, left SCM. Mild tone left upper trap PT-OP-K Range of Motion Start: 10/17/21 18:03 Freq: Status: Active Protocol: Document 10/17/21 16:45 DCW (Rec: 10/17/21 18:12 DCW [id number]) Cervical Spine Range of Motion Cervical Spine Active Degrees Testing Position Sitting Flexion 55 Extension 45 Rotation Left 55 Rotation Right 60 Lateral Flexion Left 30 Lateral Flexion Right 30 ROM Limitations Soft Tissue Tightness,Muscle Tone PT-OP-M Strength Start: 10/17/21 18:03 Freq: Status: Active Protocol: Document 10/17/21 16:45 DCW (Rec: 10/17/21 18:12 DCW [id number]) Cervical Spine Strength Cervical Spine Manual Muscle Testing Testing Position Sitting Flexion (C1-2) 4 Good Extension 4 Good Rotation Left 4+ Good+ Rotation Right 4+ Good+ Lateral Flexion Left (C3) 4 Good Lateral Flexion Right (C3) 4 Good PT-OP-Q Treatments Start: 10/17/21 18:03 Freq: Status: Active Protocol: Document 10/24/21 13:45 DCW (Rec: 10/24/21 14:32 [facility] [id number]) Therapeutic Exercises Supine Exercises Chin tuck Supine Exercise Name Chin tuck/head lift Manual Therapy Treatment Soft Tissue Mobilization Scalenes Body Location L>R Scalenes Mobilization Type Strumming,Sustained Pressure, Trigger Point Release Upper Trap Body Location L>R UT Mobilization Type Strumming,Sustained Pressure, Trigger Point Release SCM Body Location L>R SCM Mobilization Type Strumming,Sustained Pressure, Trigger Point Release PT-OP-T Assessment and Plan Start: 10/17/21 18:03 Freq: Status: Active Protocol: Document 10/24/21 13:45 DCW (Rec: 10/24/21 14:32 [facility] [id number]) Physical Therapy Assessment Impairments Impairments ROM,Soft Tissue Mobility, Strength,Tone Goals Two Impairment Cervical rotation restricted to 55?(L) and 60? (R) Custodial Goal (LTG) Pt to demonstrate decreased cervical tone by improving cervical rotation to at least 75? bilaterall LTG Duration 12/17/21 One Impairment Pt does not have an appropriate home exercise program Short Term Goal (STG) Pt to be independent and complaint with an appropriate HEP STG Duration 11/16/21 Assessment Summary Assessment Pt tolerated STM very well, by end of session had gained an extra 15? cervical flexion and 5? bilateral lateral flexion, discussed need to continue strengthening and stretching at home in effort to maintain gains made in PT. Physical Therapy Plan Frequency and Duration Frequency of Treatment 1-2x/week Duration of Treatment Two months Plan of Care Start Date 10/17/21 Plan of Care End Date 12/17/21 Therapeutic Interventions Therapeutic Interventions Aquatic Therapy,Home Exercise Program,Joint Mobilizations, Manual Therapy,Patient/ Caregiver Education,Self-Care/ Home Management,Soft Tissue Mobilization,Therapeutic Activities,Therapeutic Exercises Next Visit Focus/Plan Next Note Type Treatment Note Next Visit Plan STM, stretching, cervical strengthening
--- NOTE | 2021-11-20 16:33 | PT.OTN ---
Current Diagnoses Spasmodic torticollis (11/20/21) Other dystonia (11/20/21) Stiffness of other specified joint, not elsewhere classified (11/20/21) Physical Therapy Treatment Note PT-OP-A Visit Information Start: 10/17/21 18:03 Freq: Status: Active Protocol: Document 11/20/21 14:09 AW (Rec: 11/20/21 16:33 AW [id number]) Out-Patient Physical Therapy Visit Information Visit Information Visit Type Treatment Note Visit Start Time 14:30 Visit Stop Time 15:15 Total Visit Minutes 45 Visit Number 3 Number of PERL SOFTWARE ENGINEER Visits 0 Evaluation Information Evaluation Date 10/17/21 PT-OP-B Current Condition Start: 10/17/21 18:03 Freq: Status: Active Protocol: Document 10/17/21 16:45 DCW (Rec: 10/17/21 18:19 DCW [id number]) Current Condition History of Current Condition Onset Date ~10 year history Current Complaints Left-sided tightness in neck History of Current Condition Pt is a 45 year old female presenting with a 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 Pt already gets Botox injections every three months for the past few years, and takes muscle relaxers daily. Notes that stress, exercise, or stopping her muscle relaxers will lead to increased muscle tone. Uses heat, which doesn't really help. Pt just largely complains of an overall constant sensation of tightness in her neck, and would just like anything that can help. PT-OP-C Subjective Start: 10/17/21 18:03 Freq: Status: Active Protocol: Document 11/20/21 14:09 AW (Rec: 11/20/21 16:33 AW [id number]) OP-PT Subjective Patient Comments Patient Comments Feeling a little stiff today but probably no more than usual. Feels better after therapy for at least a day. PT-OP-F Manual Assessment Start: 10/17/21 18:03 Freq: Status: Active Protocol: Document 10/17/21 16:45 DCW (Rec: 10/17/21 18:12 DCW [id number]) Manual Assessments Soft Tissue Assessment Soft Tissue Mobility Assessment Moderate tone along left scalenes, left SCM. Mild tone left upper trap PT-OP-K Range of Motion Start: 10/17/21 18:03 Freq: Status: Active Protocol: Document 10/17/21 16:45 DCW (Rec: 10/17/21 18:12 DCW [id number]) Cervical Spine Range of Motion Cervical Spine Active Degrees Testing Position Sitting Flexion 55 Extension 45 Rotation Left 55 Rotation Right 60 Lateral Flexion Left 30 Lateral Flexion Right 30 ROM Limitations Soft Tissue Tightness,Muscle Tone PT-OP-M Strength Start: 10/17/21 18:03 Freq: Status: Active Protocol: Document 10/17/21 16:45 DCW (Rec: 10/17/21 18:12 DCW [id number]) Cervical Spine Strength Cervical Spine Manual Muscle Testing Testing Position Sitting Flexion (C1-2) 4 Good Extension 4 Good Rotation Left 4+ Good+ Rotation Right 4+ Good+ Lateral Flexion Left (C3) 4 Good Lateral Flexion Right (C3) 4 Good PT-OP-Q Treatments Start: 10/17/21 18:03 Freq: Status: Active Protocol: Document 11/20/21 14:09 AW (Rec: 11/20/21 16:33 AW [id number]) Therapeutic Exercises Supine Exercises Chin tuck Supine Exercise Name Chin tuck/head lift Sitting Exercises cervical AROM Sitting Exercise Name cervical AROM - rotation, SB Cervical isometric Sitting Exercise Name Cervical isometric strengthening Side bilateral Comments lateral flexion Manual Therapy Treatment Soft Tissue Mobilization Scalenes Body Location L>R Scalenes Mobilization Type Strumming,Sustained Pressure, Trigger Point Release Upper Trap Body Location L>R UT Mobilization Type Strumming,Sustained Pressure, Trigger Point Release SCM Body Location L>R SCM Mobilization Type Strumming,Sustained Pressure, Trigger Point Release PT-OP-T Assessment and Plan Start: 10/17/21 18:03 Freq: Status: Active Protocol: Document 11/20/21 14:09 AW (Rec: 11/20/21 16:33 AW [id number]) Physical Therapy Assessment Goals Two Impairment Cervical rotation restricted to 55?(L) and 60? (R) Anaesthetic Technician Goal (LTG) Pt to demonstrate decreased cervical tone by improving cervical rotation to at least 75? bilaterall LTG Duration 12/17/21 One Impairment Pt does not have an appropriate home exercise program Short Term Goal (STG) Pt to be independent and complaint with an appropriate HEP STG Duration 11/16/21 Assessment Summary Assessment Pt demonstrates good understanding of HEP. She tolerated STM well with subjective report of increased lateral flexion after treatment. Physical Therapy Plan Frequency and Duration Frequency of Treatment 1-2x/week Plan of Care Start Date 10/17/21 Plan of Care End Date 12/17/21
--- NOTE | 2021-11-28 15:14 | PT.OTN ---
Current Diagnoses Spasmodic torticollis (11/28/21) Other dystonia (11/28/21) Stiffness of other specified joint, not elsewhere classified (11/28/21) Physical Therapy Treatment Note PT-OP-A Visit Information Start: 10/17/21 18:03 Freq: Status: Active Protocol: Document 11/28/21 14:30 DCW (Rec: 11/28/21 15:14 DCW [id number]) Out-Patient Physical Therapy Visit Information Visit Information Visit Type Treatment Note Visit Start Time 14:30 Visit Stop Time 15:15 Total Visit Minutes 45 Visit Number 4 Number of RFID TECHNICIAN Visits 0 Evaluation Information Evaluation Date 10/17/21 PT-OP-B Current Condition Start: 10/17/21 18:03 Freq: Status: Active Protocol: Document 10/17/21 16:45 DCW (Rec: 10/17/21 18:19 DCW [id number]) Current Condition History of Current Condition Onset Date ~10 year history Current Complaints Left-sided tightness in neck History of Current Condition Pt is a 45 year old female presenting with a 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 Pt already gets Botox injections every three months for the past few years, and takes muscle relaxers daily. Notes that stress, exercise, or stopping her muscle relaxers will lead to increased muscle tone. Uses heat, which doesn't really help. Pt just largely complains of an overall constant sensation of tightness in her neck, and would just like anything that can help. PT-OP-C Subjective Start: 10/17/21 18:03 Freq: Status: Active Protocol: Document 11/28/21 14:30 DCW (Rec: 11/28/21 15:14 DCW [id number]) OP-PT Subjective Patient Comments Patient Comments Pt admits she is pretty tight today, does typically feel quite a bit better following her PT appointments. PT-OP-F Manual Assessment Start: 10/17/21 18:03 Freq: Status: Active Protocol: Document 10/17/21 16:45 DCW (Rec: 10/17/21 18:12 DCW [id number]) Manual Assessments Soft Tissue Assessment Soft Tissue Mobility Assessment Moderate tone along left scalenes, left SCM. Mild tone left upper trap PT-OP-K Range of Motion Start: 10/17/21 18:03 Freq: Status: Active Protocol: Document 10/17/21 16:45 DCW (Rec: 10/17/21 18:12 DCW [id number]) Cervical Spine Range of Motion Cervical Spine Active Degrees Testing Position Sitting Flexion 55 Extension 45 Rotation Left 55 Rotation Right 60 Lateral Flexion Left 30 Lateral Flexion Right 30 ROM Limitations Soft Tissue Tightness,Muscle Tone PT-OP-M Strength Start: 10/17/21 18:03 Freq: Status: Active Protocol: Document 10/17/21 16:45 DCW (Rec: 10/17/21 18:12 DCW [id number]) Cervical Spine Strength Cervical Spine Manual Muscle Testing Testing Position Sitting Flexion (C1-2) 4 Good Extension 4 Good Rotation Left 4+ Good+ Rotation Right 4+ Good+ Lateral Flexion Left (C3) 4 Good Lateral Flexion Right (C3) 4 Good PT-OP-Q Treatments Start: 10/17/21 18:03 Freq: Status: Active Protocol: Document 11/28/21 14:30 DCW (Rec: 11/28/21 15:14 DCW [id number]) Manual Therapy Treatment Soft Tissue Mobilization Scalenes Body Location L>R Scalenes Mobilization Type Strumming,Sustained Pressure, Trigger Point Release Upper Trap Body Location L>R UT Mobilization Type Strumming,Sustained Pressure, Trigger Point Release SCM Body Location L>R SCM Mobilization Type Strumming,Sustained Pressure, Trigger Point Release PT-OP-T Assessment and Plan Start: 10/17/21 18:03 Freq: Status: Active Protocol: Document 11/28/21 14:30 DCW (Rec: 11/28/21 15:14 DCW [id number]) Physical Therapy Assessment Goals Two Impairment Cervical rotation restricted to 55?(L) and 60? (R) [facility] Goal (LTG) Pt to demonstrate decreased cervical tone by improving cervical rotation to at least 75? bilaterall LTG Duration 12/17/21 One Impairment Pt does not have an appropriate home exercise program Short Term Goal (STG) Pt to be independent and complaint with an appropriate HEP STG Duration 11/16/21 Assessment Summary Assessment Focused today on STM, pt doing well with independent HEP. Will be starting new job soon, not sure how compliant she'll be able to remain while adjusting. Physical Therapy Plan Frequency and Duration Frequency of Treatment 1-2x/week Plan of Care Start Date 10/17/21 Plan of Care End Date 12/17/21
--- NOTE | 2021-12-05 11:43 | PT-OP ANOTE ---
Pt has no-shown last two appointments, therapist called her to check-in, left voicemail reminding pt of next scheduled visit.
--- NOTE | 2022-03-27 14:08 | PT.OPDS ---
Current Diagnoses Spasmodic torticollis (11/28/21) Other dystonia (11/28/21) Stiffness of other specified joint, not elsewhere classified (11/28/21) Visit Care Team Role Provider Type Wiley Carvalho MD Attending Provider Physician Family Provider Primary Care Provider Referring Provider Specialty: Internal Medicine Pediatrics Address: [address] [place] [address], [address] Phone: Fax: Email: [email or web address] Visit Number Visit Number 4 Discharge Summary PT-OP-B Current Condition Start: 10/17/21 18:03 Freq: Status: Active Protocol: Document 10/17/21 16:45 DCW (Rec: 10/17/21 18:19 DCW [id number]) Current Condition History of Current Condition Onset Date ~10 year history Current Complaints Left-sided tightness in neck History of Current Condition Pt is a 45 year old female presenting with a 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 Pt already gets Botox injections every three months for the past few years, and takes muscle relaxers daily. Notes that stress, exercise, or stopping her muscle relaxers will lead to increased muscle tone. Uses heat, which doesn't really help. Pt just largely complains of an overall constant sensation of tightness in her neck, and would just like anything that can help. PT-OP-C Subjective Start: 10/17/21 18:03 Freq: Status: Active Protocol: Document 11/28/21 14:30 DCW (Rec: 11/28/21 15:14 DCW [id number]) OP-PT Subjective Patient Comments Patient Comments Pt admits she is pretty tight today, does typically feel quite a bit better following her PT appointments. PT-OP-F Manual Assessment Start: 10/17/21 18:03 Freq: Status: Active Protocol: Document 10/17/21 16:45 DCW (Rec: 10/17/21 18:12 DCW [id number]) Manual Assessments Soft Tissue Assessment Soft Tissue Mobility Assessment Moderate tone along left scalenes, left SCM. Mild tone left upper trap PT-OP-K Range of Motion Start: 10/17/21 18:03 Freq: Status: Active Protocol: Document 10/17/21 16:45 DCW (Rec: 10/17/21 18:12 DCW [id number]) Cervical Spine Range of Motion Cervical Spine Active Degrees Testing Position Sitting Flexion 55 Extension 45 Rotation Left 55 Rotation Right 60 Lateral Flexion Left 30 Lateral Flexion Right 30 ROM Limitations Soft Tissue Tightness,Muscle Tone PT-OP-M Strength Start: 10/17/21 18:03 Freq: Status: Active Protocol: Document 10/17/21 16:45 DCW (Rec: 10/17/21 18:12 DCW [id number]) Cervical Spine Strength Cervical Spine Manual Muscle Testing Testing Position Sitting Flexion (C1-2) 4 Good Extension 4 Good Rotation Left 4+ Good+ Rotation Right 4+ Good+ Lateral Flexion Left (C3) 4 Good Lateral Flexion Right (C3) 4 Good PT-OP-T Assessment and Plan Start: 10/17/21 18:03 Freq: Status: Active Protocol: Document 03/27/22 14:07 DCW (Rec: 03/27/22 14:08 DCW [id number]) Physical Therapy Assessment Assessment Summary Assessment Pt either no-showed or canceled final four scheduled appointments, has now not been seen in three months. Pt will be discharged from skilled therapy at this time.
== END 2022-03-28 11:23 | disposition home or self-care (01) ==
LOC: PHYS 14:30
PROVIDERS: Family Provider Pediatrics; PCP Pediatrics; Referring Provider Pediatrics; Visit Provider Pediatrics
DX: G24.3 Spasmodic torticollis (principal); G24.8 Other dystonia; M25.69 Stiffness of other specified joint, not elsewhere classified
CPT/HCPCS: 97110; 97140; 97161

== ENCOUNTER 2022-09-08 16:29 | Emergency (ER) | payer SELFPAY ==
[2022-09-08 16:35] VITALS: BP 161/105; PULSE 87; O2SAT 99
[2022-09-08 16:37] VITALS: BP 161/105; PULSE 85; RESP 19; TEMP 36.6; O2SAT 98; BMI 38.4
--- NOTE | 2022-09-08 16:48 | ED_ITS ---
HPI - Abdominal Pain General Chief Complaint: Abdominal Pain Stated Complaint: lEFT SIDE KIDNEY PAIN Time Seen by Provider: 09/08/22 16:47 Source: patient Mode of arrival: Ambulatory History of Present Illness HPI narrative: 46-year-old female nonsmoker with history of kidney stones presents with a chief complaint of gradually worsening left-sided flank pain that radiates into her groin. She states that she went to bed feeling okay noticed this discomfort over the course of the day. She states the pain is relatively persistent and s eems to worsen when she moves and improves with rest. She denies any fever or chills. She denies dysuria, frequency or urgency. She denies any obvious hematuria. She is had kidney stones in the past and states that on some levels this is reminiscent of those episodes. Additionally she states she noted a faint itchy rash on her left lower abdomen today. She denies any new lotions or soaps, no adhesives, Band-Aids or new articles of clothing with elastic bands or any other obvious new exposures. Related Data Home Medications Medication Instructions Recorded Confirmed lamotrigine 100 mg tablet See Rx Instructions .Route .COMPLEX 10/04/21 04/30/22 loratadine 10 mg tablet 10 mg PO DAILY 10/04/21 04/30/22 Previous Rx's Medication Instructions Recorded ergocalciferol (vitamin D2) 1,250 50,000 unit PO QWEEK #8 caps 10/04/21 mcg (50,000 unit) capsule topiramate 100 mg tablet See Rx Instructions .Route 12/23/21 .COMPLEX #180 tabs levothyroxine 100 mcg tablet 100 mcg PO DAILY #90 tabs 02/07/22 medroxyprogesterone 150 mg/mL 150 mg IM [id number] #1 mL 02/07/22 intramuscular suspension (Depo-Provera) topiramate 200 mg tablet See Rx Instructions .Route 02/07/22 .COMPLEX #180 tabs escitalopram oxalate 10 mg tablet 10 mg PO DAILY #90 tabs 05/26/22 diazepam 10 mg tablet See Rx Instructions .Route 09/04/22 .COMPLEX #30 tabs cefuroxime axetil 500 mg tablet 500 mg PO BID #14 tabs 09/08/22 hydrocodone 5 mg-acetaminophen 325 1 tab PO Q4-6H PRN pain #10 tabs 09/08/22 mg tablet ketorolac 10 mg tablet 10 mg PO Q6H PRN pain #14 tabs 09/08/22 ondansetron 4 mg disintegrating 4 mg PO TID-QID PRN nausea and 09/08/22 tablet vomiting #10 tabs Allergies Allergy/AdvReac Type Severity Reaction Status Date / Time No Known Drug Allergies Allergy Unknown Verified 09/08/22 16:37 Review of Systems Review of Systems Narrative: GENERAL: Denies chills, fatigue, malaise, fever, sweats. HEENT: Denies sinus pain, ear pain, sore throat, difficulty swallowing, dizziness. RESPIRATORY: Denies dyspnea, cough, wheezing, hemoptysis, sputum. CARDIOVASCULAR: Denies chest pain, palpitations, orthopnea, edema, GASTROINTESTINAL: Denies nausea, vomiting, abdominal pain, diarrhea, constipation, melena. : See HPI MUSCULOSKELETAL: denies weakness, joint pain, or bony pain SKIN: See HPI NEUROLOGIC: Denies weakness, headache, numbness, change in speech, confusion, seizures, incoordination. PSYCHIATRIC: No concerning psychosocial issues. 12 point review of systems is negative except for those stated above Patient History Medical History Acute maxillary sinusitis Allergic rhinitis Anxiety Bilateral nephrolithiasis Cervical dystonia Chronic headaches Chronic insomnia COVID-19 Dysmenorrhea (11/09/14) Encounter for contraceptive management GERD (gastroesophageal reflux disease) Goiter History of dysmenorrhea History of nephrolithiasis Hydronephrosis, right Kidney stone Long-term use of high-risk medication Lymphocytic thyroiditis Migraine without aura and without status migrainosus, not intractable (04/07/15) Needlestick injury with contaminated needle Pharyngitis Recurrent nephrolithiasis Seizure disorder (11/09/14) Thyroid nodule Surgical History History of skin graft Family History Father Melanoma Hypertension TIA (transient ischemic attack) Grandfather Colon cancer Grandfather Lymphoma Grandmother Parkinsons disease Sister Hypothyroid Graves disease Social History Smoking Status: Never smoker alcohol intake: current Smoking Status: Never smoker alcohol intake frequency: other Substance Use Type: does not use Exam Narrative Exam Narrative: GENERAL: [46] year old patient appears stated age. Well-developed patient, in mild distress. HEAD: Atraumatic. Normocephalic. EYES: Pupils equal round and reactive. Extraocular motions intact. No scleral icterus. No injection or drainage. ENT: Nose without bleeding, purulent drainage. Throat without erythema, tonsillar hypertrophy or exudate. Airway patent. NECK: Trachea midline. Non tender CARDIOVASCULAR: Regular rate and rhythm without murmurs, gallops, or rubs. RESPIRATORY: Clear to auscultation. Breath sounds equal bilaterally. No wheezes, rales, or rhonchi. GASTROINTESTINAL: Abdomen soft, non-tender, nondistended. EXTREMITIES: No edema or joint tenderness. BACK: Nontender without deformity or crepitance. Left CVA tenderness NEURO: AOx3. SKIN: Small pruritic blanching rash on left lower quadrant, no obvious clear fluid-filled vesicles on erythematous base Initial Vital Signs Initial Vital Signs: Vital Signs Pulse Rate 87 09/08/22 16:35 Blood Pressure 161/105 H 09/08/22 16:35 Pulse Oximetry 99 09/08/22 16:35 Course Orders Ordered: ED Orders 09/08/22 16:40 Complete Blood Count AUTO DIFF Stat Comprehensive Metabolic Panel Stat Lipase Stat 09/08/22 16:51 Urine Culture Stat Urine Microscopic Stat 09/08/22 17:29 CT kidney ureter bladder (KUB) Stat Ondansetron HCl (Ondansetron 4 Mg Odt) 4 mg PO NOW PRN PRN Reason: Nausea And Vomiting Ondansetron HCl (Ondansetron 4 Mg/2 Ml Inj) 4 mg IV NOW PRN PRN Reason: Nausea And Vomiting Last Admin: 09/08/22 16:59 Dose: 4 mg Documented By: OFE Discontinued Medications Hydrocodone Bitart/Acetaminophen (Hydrocodone/Acet 5/325 Prepack) 1 bottle MISC SEEINSTR ONE Stop: 09/08/22 19:07 Sodium Chloride (Normal Saline 0.9%) 1,000 mls @ 1,000 mls/hr IV BOLUS ONE Stop: 09/08/22 17:47 Last Infusion: 09/08/22 18:29 Dose: 0 mls/hr Documented By: Admin: 09/08/22 17:07 Dose: 1,000 mls/hr Documented By: OFE Lidocaine HCl 9 ml/ Sodium (Chloride) 59 mls @ 354 mls/hr IV NOW ONE Stop: 09/08/22 16:49 Last Infusion: 09/08/22 18:16 Dose: 0 mls/hr Documented By: Admin: 09/08/22 18:02 Dose: 354 mls/hr Documented By: FRANKLYN Ceftriaxone Sodium 1,000 mg/ (Sodium Chloride) 100 mls @ 200 mls/hr IV NOW ONE Stop: 09/08/22 16:50 Last Infusion: 09/08/22 18:02 Dose: 0 mls/hr Documented By: Admin: 09/08/22 16:58 Dose: 200 mls/hr Documented By: OFE Ketorolac Tromethamine (Ketorolac 30 Mg/Ml Vial) 15 mg IV NOW ONE Stop: 09/08/22 16:49 Last Admin: 09/08/22 16:59 Dose: 15 mg Documented By: OFE Ondansetron HCl (Ondansetron 4 Mg Odt Prepack) 1 bottle MISC SEEINSTR ONE Stop: 09/08/22 19:07 Vital Signs Vital signs: Vital Signs - 8 hr 09/08/22 16:37 09/08/22 16:35 09/08/22 16:35 Temperature 97.9 F Pulse Rate 85 87 Respiratory Rate 19 Blood Pressure 161/105 H 161/105 H Pulse Oximetry 98 99 Oxygen Delivery Method Room Air 09/08/22 18:05 09/08/22 18:07 09/08/22 18:07 Temperature Pulse Rate 75 74 Respiratory Rate Blood Pressure 163/98 H Pulse Oximetry 99 99 Oxygen Delivery Method 09/08/22 18:30 09/08/22 18:30 Temperature Pulse Rate 73 Respiratory Rate Blood Pressure 181/91 H Pulse Oximetry 99 Oxygen Delivery Method MDM - Abdominal Pain Lab Data 09/08/22 16:40 09/08/22 16:40 Labs: Lab Results 09/08/22 09/08/22 09/08/22 Range/Units 16:40 16:40 16:51 WBC 10.1 (4.5-11.0) X10^3/uL RBC 4.70 (4.0-5.2) X10^6/uL Hgb 13.1 (12.0-16.0) g/dL Hct 39.3 (36-46) % MCV 83.6 (80-100) fL MCH 27.8 (26-34) PG MCHC 33.3 (30-36) % RDW 14.9 H (11.6-14.8) % Plt Count 278 (150-400) X10^3/uL Neut % (Auto) 66.6 (50-75) % Lymph % (Auto) 18.5 L (25-40) % [place] % (Auto) 8.8 (3-14) % Eos % (Auto) 5.6 H (2-4) % Baso % (Auto) 0.5 (0-2) % Neut # (Auto) 6700 (3719-0562) /uL Lymph # (Auto) 1900 (9731-6313) /uL [place] # (Auto) 900 (0-900) /uL Eos # (Auto) 600 H (0-450) /uL Baso # (Auto) 0 (0-100) /uL Sodium 141 (137-145) mmol/L Potassium 4.2 (3.4-5.1) mmol/L Chloride 110 H (98-107) mmol/L Carbon Dioxide 22 (22-32) mmol/L BUN 18 H (7-17) mg/dL Creatinine 0.97 (0.52-1.04) mg/dL Estimated GFR > 60 (>60) mL/min BUN/Creatinine Ratio 18.6 (6-22) Glucose 98 (70-100) mg/dL Calcium 8.7 (8.4-10.2) mg/dL Total Bilirubin 0.3 (0.2-1.3) mg/dL AST 27 (14-36) IU/L ALT 30 (<35) IU/L Alkaline Phosphatase 117 (38-126) U/L Total Protein 7.1 (6.3-8.2) g/dL Albumin 4.3 (3.5-5.0) g/dL Globulin 2.8 (1.7-4.1) g/dL Albumin/Globulin Ratio 1.5 (1.0-2.8) Lipase 134 (23-300) U/L Urine RBC None seen (0-5/HPF) Urine WBC 5-10/hpf H (0-5/HPF) Ur Squamous Epith Cells 10-30 /hpf H D (0-5/HPF) Triple Phos Crystals Moderate Amorphous Sediment 2+ Urine Bacteria Moderate (10-30) H (None) Ur Culture Indicated? Specimen cultured Point of care testing: Point of Care Testing Test Results Negative Urine Dip Bedside Urine Glucose Negative Bedside Urine Bilirubin - Negative Bedside Urine Ketone - Negative Urine Specific [place] 1.010 Bedside Urine Occult Blood - Negative Bedside Urine pH 8.0 Bedside Urine Protein - Negative Bedside Urine Urobilinogen - Negative Bedside Urine Nitrite - Negative Bedside Urine Leukocytes + 70 Esterase MDM Narrative Medical decision making narrative: CC: 46-year-old female with left flank pain Complicating co-morbidities: History of kidney stones Data collected from: Patient Medical records reviewed: Prior notes reviewed in our EMR Differential considered, but not limited to: Kidney stone versus pyelonephritis versus other Exam documented above, pertinent findings include: Left flank pain, left groin pain Lab Test results independently reviewed as above. Pertinent findings: Urine convincing for urinary source, no leukocytosis or left shift, no signs of anemia, electrolytes and renal function within normal Independently reviewed EKG as above Imaging studies independently reviewed: CT demonstrates small nonobstructing stones within bilateral kidneys but no obstructive uropathy Discussion: Multiple diagnoses considered as noted above. From the onset pyelonephritis seemed to be the most likely given her CVA tenderness with radiation into her groin, urine consistent with UTI. Her pain is reproducible, worse with motion and improves with rest, rather than the colicky type pain most consistent with kidney stones. Furthermore, imaging demonstrates no evidence of obstructive uropathy. She shows no signs of sepsis, is treated with 1st round of antibiotics and pain control along with fluids here, pain is controlled, she is tolerating orals, sent home with prepack for pain control and antiemetics and the remainder of prescription sent to the pharmacy of her choice Disposition: see below, along with detailed discharge instructions that have been reviewed with patient as well as indications for ED re-evaluation and additional outpatient follow up Discharge Plan Departure Patient Disposition: Home Clinical Impression: Pyelonephritis Instructions: DI for Kidney Infection Activity Restrictions/Additional Instructions: *You have been diagnosed with [pyelonephritis (kidney infection. As we discussed your history and physical exam are reassuring. Urine is consistent with infection, labs are otherwise unremarkable and the CT scan shows no evidence of kidney stones that would be causing your pain *What to do: *Please continue to take your regular medications as directed. [x ] New medication prescriptions sent to your pharmacy: [ ] [ ] New medication written as a paper prescription [ ] No new medications given *Please follow up with your primary care provider in 2-3 days, call for an appointment. Let them know you were seen in the Emergency Department and that we ask that you be seen in follow up. We will electronically transmit a record of today's note if your PCP is in our system *If you do not have a primary care provider please contact [facility] Resource line at [phone]. They will ask some questions about your medical history and help get you set up with a doctor in the community. *Return to Emergency Department if you should have any new, worsening or concerning symptoms, such as [fever greater than 101 F, shaking chills, worsening pain, persistent vomiting or other bothersome symptoms] Prescriptions: New hydrocodone-acetaminophen 5-325 mg tablet 1 tab PO Q4-6H PRN (Reason: pain) Qty: 10 0RF ketorolac 10 mg tablet 10 mg PO Q6H PRN (Reason: pain) Qty: 14 0RF cefuroxime axetil 500 mg tablet 500 mg PO BID Qty: 14 0RF ondansetron 4 mg tablet,disintegrating 4 mg PO TID-QID PRN (Reason: nausea and vomiting) Qty: 10 0RF No Action topiramate 100 mg tablet See Rx Instructions .ROUTE .COMPLEX Qty: 180 3RF Dose Instruction: Take 1 tablet (100 mg) by mouth 2 times daily Rx Instructions: Take 1 tablet (100 mg) by mouth 2 times daily escitalopram oxalate 10 mg tablet 10 mg PO DAILY Qty: 90 3RF diazepam 10 mg tablet See Rx Instructions .ROUTE .COMPLEX Qty: 30 4RF Rx Instructions: Take 1 tablet by mouth if needed for sleep loratadine 10 mg tablet 10 mg PO DAILY ergocalciferol (vitamin D2) 1,250 mcg (50,000 unit) capsule 50,000 unit PO QWEEK Qty: 8 0RF lamotrigine 100 mg tablet See Rx Instructions .ROUTE .COMPLEX Rx Instructions: 2 tabs qam and 2.5 tabs qpm; topiramate 200 mg tablet See Rx Instructions .ROUTE .COMPLEX Qty: 180 3RF Dose Instruction: Take 1 tablet (200 mg) by mouth 2 times daily Rx Instructions: Take 1 tablet (200 mg) by mouth 2 times daily levothyroxine 100 mcg tablet 100 mcg PO DAILY Qty: 90 3RF medroxyprogesterone [Depo-Provera] 150 mg/mL suspension 150 mg IM [id number] Qty: 1 8RF Referrals: Viviana Latham DO [Primary Care Provider] - Stand Alone Forms: Patient Portal/API
[2022-09-08 16:50] LABS: Add Manual Diff / Slide Review NO; Basophils Absolute Auto 0 /uL (0-100); Basophils Percent Auto 0.5 % (0-2); Eosinophils Absolute Auto 600 /uL (0-450); Eosinophils Percent Auto 5.6 % (2-4); Hematocrit 39.3 % (36-46); Hemoglobin 13.1 g/dL (12.0-16.0); Lymphocytes Absolute Auto 1900 /uL (1100-4500); Lymphocytes Percent Auto 18.5 % (25-40); Mean Corpuscular HGB Conc 33.3 % (30-36); Mean Corpuscular Hemoglobin 27.8 PG (26-34); Mean Corpuscular Volume 83.6 fL (80-100); Monocytes Absolute Auto 900 /uL (0-900); Monocytes Percent Auto 8.8 % (3-14); Neutrophils Absolute Auto 6700 /uL (1500-7000); Neutrophils Percent Auto 66.6 % (50-75); Platelet Count 278 X10^3/uL (150-400); Red Cell Distribution Width 14.9 % (11.6-14.8); White Blood Cell Count 10.1 X10^3/uL (4.5-11.0)
[2022-09-08] MEDS: cefTRIAXone 1,000 MG in SODIUM CHLORIDE 0.9% 100 ML 200 MG IV (16:58)
[2022-09-08] MEDS: KETOROLAC 30 MG/ML VIAL 15 MG IV (16:59)
[2022-09-08] MEDS: ONDANSETRON 4 MG/2 ML INJ IV (16:59)
[2022-09-08 17:02] LABS: Alanine Aminotransferase 30 IU/L (<35); Albumin 4.3 g/dL (3.5-5.0); Albumin Globulin Ratio 1.5 (1.0-2.8); Alkaline Phosphatase 117 U/L (38-126); Aspartate Aminotransferase 27 IU/L (14-36); BUN Creatinine Ratio 18.6 (6-22); Bilirubin Total 0.3 mg/dL (0.2-1.3); Blood Urea Nitrogen 18 mg/dL (7-17); Calcium 8.7 mg/dL (8.4-10.2); Carbon Dioxide 22 mmol/L (22-32); Chloride 110 mmol/L (98-107); Estimated Glomerular Filt Rate > 60 mL/min (>60); Globulin 2.8 g/dL (1.7-4.1); Glucose 98 mg/dL (70-100); HEMOLYSIS < 15 (0-50); Lipase 134 U/L (23-300); Potassium 4.2 mmol/L (3.4-5.1); Sodium 141 mmol/L (137-145); Total Protein 7.1 g/dL (6.3-8.2)
[2022-09-08] MEDS: SODIUM CHLORIDE 0.9% 1,000 ML 1000 ML IV (17:07)
--- NOTE | 2022-09-08 17:29 | DI.CT.S_ITS ---
PROCEDURE: CT KIDNEY URETER BLADDER (KUB) INDICATIONS: severe L flank pain, hx stones TECHNIQUE: Axial sections were acquired from the lung bases to the pubic symphysis. Coronal and sagittal reformats were performed. For radiation dose reduction, the following was used: automated exposure control, adjustment of mA and/or kV according to patient size. COMPARISON: [facility], CT, CT KIDNEY URETER BLADDER (KUB), 07/29/2019, 6:52. FINDINGS: Image quality: Excellent. Lung bases: Unremarkable. Heart: No significant findings. URINARY: Right Kidney: There are 4-5 small 1-2 mm renal calculi. No hydronephrosis. Mild perinephric stranding. Right Ureter: No ureteral stones or hydroureter. Left Kidney: There are 4-5 small 1-3 mm calculi. No hydronephrosis. Mild perinephric stranding. Left Ureter: No ureteral stones or hydroureter. Bladder: Normal wall thickness. No stones. ABDOMEN: Liver: Unremarkable. Gallbladder: Unremarkable. Biliary ducts: Unremarkable. Pancreas: Unremarkable. Spleen: Unremarkable. Adrenal Glands: Unremarkable. Stomach and Bowel: Stomach, small bowel loops, and colon are unremarkable. Appendix. Peritoneum: No abnormal intraperitoneal fluid. No free air. Ventral Wall: No hernia. There is mild subcutaneous stranding in the left and right anterior abdominal wall, nonspecific. Abdominal Nodes: No enlarged retroperitoneal or mesenteric lymph nodes. Vessels: Aorta and inferior vena cava are normal in size. PELVIS: Pelvic Organs: Unremarkable. Pelvic Nodes: Unremarkable. Miscellaneous: No inguinal hernias are seen. Bones: Unremarkable. Degenerative disc disease at L5-S1. IMPRESSION: 1. Nephrolithiasis bilaterally with multiple small non obstructive renal calculi. No hydronephrosis. 2. Nonspecific subcutaneous fat stranding in the anterior abdominal wall bilaterally. Dictated by: Matteo Hdz M.D. on 09/08/2022 at 18:22 Approved by: Matteo Hdz M.D. on 09/08/2022 at 18:51
[2022-09-08 17:40] LABS: Amorphous Sediment Urine 2+; Bacteria Urine Moderate (10-30); RBC Urine None Seen (0-5/HPF); Squamous Epithelial Cell Urine 10-30 /HPF (0-5/HPF); Triple Phosphate Crystal Urine Moderate; WBC Urine 5-10/HPF (0-5/HPF)
[2022-09-08 17:41] LABS: Culture Indicated Urine Specimen Cultured
[2022-09-08] MEDS: LIDOCAINE 2% (PF) 9 ML in SODIUM CHLORIDE 0.9% 50 ML 354 ML IV (18:02)
[2022-09-08 18:05] VITALS: PULSE 75; O2SAT 99
[2022-09-08 18:07] VITALS: BP 163/98; PULSE 74; O2SAT 99
[2022-09-08 18:30] VITALS: BP 181/91; PULSE 73; O2SAT 99
[2022-09-08 19:00] VITALS: BP 186/101; PULSE 78; O2SAT 99
[2022-09-08] MEDS: HYDROCODONE/ACET 5/325 PREPACK 1 BOTTLE MISC (19:18)
[2022-09-08] MEDS: ONDANSETRON 4 MG ODT PREPACK 1 BOTTLE MISC (19:18)
== END 2022-09-08 19:21 | disposition home or self-care (01) ==
PROVIDERS: Emergency Provider Emergency Medicine; Family Provider Pediatrics; PCP Family Medicine
DX: N12 Tubulo-interstitial nephritis, not specified as acute or chronic (principal); R10.9 Unspecified abdominal pain; Z87.442 Personal history of urinary calculi
CPT/HCPCS: 36415; 74176; 80053; 81003; 81015; 81025; 83690; 85025; 87086; 96365; 96375; 99284; J0696; J1885; J2405

== ENCOUNTER 2022-09-09 22:52 | Emergency (ER) | payer SELFPAY ==
[2022-09-09 22:55] VITALS: BP 177/98; PULSE 87; RESP 16; TEMP 36.4; O2SAT 98; BMI 38.4
--- NOTE | 2022-09-10 01:46 | ED.BACK ---
HPI - Back Pain/Injury General Chief Complaint: Back Pain/Injury Stated Complaint: pain, hx kidney infection Time Seen by Provider: 09/10/22 01:45 Source: patient History of Present Illness HPI Narrative: 46-year-old woman with a history of kidney stones was seen on September 08 in this department diagnosed with at least urinary tract infection possibly developing pyelonephritis no obstructing kidney stones started on antibiotics and returns today complaining of increasing pain now more bandlike in nature and radiating toward her spine. She is also noticed that she has a rash developing in the same area of pain distribution. Dysuria has improved, she is not having fevers. Related Data Home Medications Medication Instructions Recorded Confirmed lamotrigine 100 mg tablet See Rx Instructions .Route .COMPLEX 10/04/21 04/30/22 loratadine 10 mg tablet 10 mg PO DAILY 10/04/21 04/30/22 Previous Rx's Medication Instructions Recorded ergocalciferol (vitamin D2) 1,250 50,000 unit PO QWEEK #8 caps 10/04/21 mcg (50,000 unit) capsule topiramate 100 mg tablet See Rx Instructions .Route 12/23/21 .COMPLEX #180 tabs levothyroxine 100 mcg tablet 100 mcg PO DAILY #90 tabs 02/07/22 medroxyprogesterone 150 mg/mL 150 mg IM [id number] #1 mL 02/07/22 intramuscular suspension (Depo-Provera) topiramate 200 mg tablet See Rx Instructions .Route 02/07/22 .COMPLEX #180 tabs escitalopram oxalate 10 mg tablet 10 mg PO DAILY #90 tabs 05/26/22 diazepam 10 mg tablet See Rx Instructions .Route 09/04/22 .COMPLEX #30 tabs cefuroxime axetil 500 mg tablet 500 mg PO BID #14 tabs 09/08/22 hydrocodone 5 mg-acetaminophen 325 1 tab PO Q4-6H PRN pain #10 tabs 09/08/22 mg tablet ketorolac 10 mg tablet 10 mg PO Q6H PRN pain #14 tabs 09/08/22 ondansetron 4 mg disintegrating 4 mg PO TID-QID PRN nausea and 09/08/22 tablet vomiting #10 tabs oxycodone-acetaminophen 5 mg-325 1 tab PO Q6H PRN pain #20 tabs 09/10/22 mg tablet valacyclovir 1 gram tablet 1,000 mg PO TID #21 tabs 09/10/22 Allergies Allergy/AdvReac Type Severity Reaction Status Date / Time No Known Drug Allergies Allergy Unknown Verified 09/08/22 16:37 Review of Systems Review of Systems Narrative: Pertinent positive and negative findings as per HPI Patient History Medical History Acute maxillary sinusitis Allergic rhinitis Anxiety Bilateral nephrolithiasis Cervical dystonia Chronic headaches Chronic insomnia COVID-19 Dysmenorrhea (11/09/14) Encounter for contraceptive management GERD (gastroesophageal reflux disease) Goiter History of dysmenorrhea History of nephrolithiasis Hydronephrosis, right Kidney stone Long-term use of high-risk medication Lymphocytic thyroiditis Migraine without aura and without status migrainosus, not intractable (04/07/15) Needlestick injury with contaminated needle Pharyngitis Recurrent nephrolithiasis Seizure disorder (11/09/14) Thyroid nodule Surgical History History of skin graft Family History Father Melanoma Hypertension TIA (transient ischemic attack) Grandfather Colon cancer Grandfather Lymphoma Grandmother Parkinsons disease Sister Hypothyroid Graves disease Social History Smoking Status: Never smoker alcohol intake: current Smoking Status: Never smoker alcohol intake frequency: other Substance Use Type: does not use Exam Initial Vital Signs Initial Vital Signs: Vital Signs Temperature 97.6 F 09/09/22 22:55 Pulse Rate 87 09/09/22 22:55 Respiratory Rate 16 09/09/22 22:55 Blood Pressure 177/98 H 09/09/22 22:55 Pulse Oximetry 98 09/09/22 22:55 Oxygen Delivery Method Room Air 09/09/22 22:55 General: Healthy appearing, in moderate discomfort. Able to give a complete and coherent history. Well-nourished well-developed HEENT: Moist mucous membranes, normal sclera with reactive pupils, Respiratory: Lungs are clear to auscultation, no wheezing no rales no rhonchi. Full and symmetrical air movement Cardiac: Regular rate and rhythm no murmurs no bruits Abdomen: Soft, she has a vesicular rash on an erythematous base in a dermatomal distribution left side in a T9 distribution Skin: Warm and dry, Neurologic: Grossly neurologically intact with no obvious asymmetries or abnormalities Extremities: No trauma, well perfused Psych: Cooperative, appropriate insight and affect Course Orders Ordered: Discontinued Medications Acyclovir (Acyclovir 400 Mg Tablet) 800 mg PO NOW ONE Stop: 09/10/22 02:18 Last Admin: 09/10/22 02:35 Dose: 800 mg Documented By: ROMA Ketorolac Tromethamine (Ketorolac 30 Mg/Ml Vial) 30 mg IM NOW ONE Stop: 09/10/22 01:58 Last Admin: 09/10/22 02:22 Dose: 30 mg Documented By: ROMA Oxycodone/Acetaminophen (Oxycodone/Acetaminophen 5/325 Tablet) 1 tab PO NOW ONE Stop: 09/10/22 01:58 Last Admin: 09/10/22 02:21 Dose: 1 tab Documented By: ROMA Oxycodone/Acetaminophen (Oxycodone/Apap 5/325 Prepack) 1 bottle MISC SEEINSTR ONE Stop: 09/10/22 01:58 Last Admin: 09/10/22 02:35 Dose: 1 bottle Documented By: ROMA Vital Signs Vital signs: Vital Signs - 8 hr 09/09/22 22:55 Temperature 97.6 F Pulse Rate 87 Respiratory Rate 16 Blood Pressure 177/98 H Pulse Oximetry 98 Oxygen Delivery Method Room Air MDM - Back Pain/Injury Lab Data Labs: Point of Care Testing Test Results Negative Urine Dip Bedside Urine Glucose Negative Bedside Urine Bilirubin - Negative Bedside Urine Ketone - Negative Urine Specific [place] 1.010 Bedside Urine Occult Blood + Bedside Urine pH 6.0 Bedside Urine Urobilinogen - Negative Bedside Urine Nitrite - Negative Bedside Urine Leukocytes - Negative Esterase MDM Narrative Medical decision making narrative: CC: Worsening left-sided flank pain Complicating co-morbidities: Diagnosed with pyelonephritis on September 08, dysuria has improved continues on antibiotics Data collected from: patient, Medical records reviewed: ER record from September [address] scan all pertaining to similar complaint reviewed Differential considered: Kidney stone now obstructing, worsening pyelonephritis, diverticulitis, retroperitoneal abscess, zoster Exam documented above, pertinent findings include: Classic shingles outbreak now with vesicles in a T9 distribution left side Discussion: 46-year-old woman initially complaining of flank pain definitely had at least a urinary tract infection and now has shingles in the same distribution. The dysuria has improved significantly pain has worsened. Will place her on valacyclovir, Percocet and ibuprofen for pain control and talked about infection risk and reasons to return to the emergency department Discharge Plan Departure Patient Disposition: Home Clinical Impression: Zoster Qualifiers: Herpes zoster complications: without complications Qualified Code(s): B02.9 - Zoster without complications Instructions: DI for Shingles Activity Restrictions/Additional Instructions: Thank you for coming back today You do have shingles. This is making the flank pain significantly worse. You still do need to finish all of the antibiotics for the urinary tract infection that we did identify on September 08 Please complete the entire course of Valacyclovir to reduce your risk of complications of post herpetic neuralgia Using 400 mg of ibuprofen (2 [id number] pills) and 1 Tylenol every 6 hours can be very helpful in controlling pain. For severe pain using 400 mg of ibuprofen and 1 Percocet is helpful. Prescriptions have been electronically transmitted to [facility] Look for Eucerin ointment in the drug store, this is a thick almost Vaseline like ointment that can be very soothing over the rash particularly as it begins to crust over. Once everything has completely crusted over your no longer infectious. Until then any liquid from the vesicles is full of chickenpox virus and can be spread. If you find that you are getting worse or develop any new symptoms, please feel free to return to the emergency department for further evaluation. Prescriptions: New valacyclovir 1 gram tablet 1,000 mg PO TID Qty: 21 0RF oxycodone-acetaminophen 5-325 mg tablet 1 tab PO Q6H PRN (Reason: pain) Qty: 20 0RF No Action topiramate 100 mg tablet See Rx Instructions .ROUTE .COMPLEX Qty: 180 3RF Dose Instruction: Take 1 tablet (100 mg) by mouth 2 times daily Rx Instructions: Take 1 tablet (100 mg) by mouth 2 times daily escitalopram oxalate 10 mg tablet 10 mg PO DAILY Qty: 90 3RF diazepam 10 mg tablet See Rx Instructions .ROUTE .COMPLEX Qty: 30 4RF Rx Instructions: Take 1 tablet by mouth if needed for sleep loratadine 10 mg tablet 10 mg PO DAILY ergocalciferol (vitamin D2) 1,250 mcg (50,000 unit) capsule 50,000 unit PO QWEEK Qty: 8 0RF lamotrigine 100 mg tablet See Rx Instructions .ROUTE .COMPLEX Rx Instructions: 2 tabs qam and 2.5 tabs qpm; topiramate 200 mg tablet See Rx Instructions .ROUTE .COMPLEX Qty: 180 3RF Dose Instruction: Take 1 tablet (200 mg) by mouth 2 times daily Rx Instructions: Take 1 tablet (200 mg) by mouth 2 times daily levothyroxine 100 mcg tablet 100 mcg PO DAILY Qty: 90 3RF medroxyprogesterone [Depo-Provera] 150 mg/mL suspension 150 mg IM [id number] Qty: 1 8RF hydrocodone-acetaminophen 5-325 mg tablet 1 tab PO Q4-6H PRN (Reason: pain) Qty: 10 0RF ketorolac 10 mg tablet 10 mg PO Q6H PRN (Reason: pain) Qty: 14 0RF cefuroxime axetil 500 mg tablet 500 mg PO BID Qty: 14 0RF ondansetron 4 mg tablet,disintegrating 4 mg PO TID-QID PRN (Reason: nausea and vomiting) Qty: 10 0RF Referrals: Viviana Latham DO [Primary Care Provider] - Stand Alone Forms: Patient Portal/API
[2022-09-10] MEDS: OXYCODONE/ACETAMINOPHEN 5/325 TABLET 1 TAB PO (02:21)
[2022-09-10] MEDS: KETOROLAC 30 MG/ML VIAL IM (02:22)
[2022-09-10] MEDS: OXYCODONE/APAP 5/325 PREPACK 1 BOTTLE MISC (02:35)
[2022-09-10] MEDS: ACYCLOVIR 400 MG TABLET 800 MG PO (02:35)
[2022-09-10 04:15] VITALS: BP 144/78; PULSE 72; RESP 16; TEMP 36.6; O2SAT 98
== END 2022-09-10 04:15 | disposition home or self-care (01) ==
PROVIDERS: Emergency Provider Emergency Medicine; Family Provider Pediatrics; PCP Family Medicine
DX: B02.9 Zoster without complications (principal)
CPT/HCPCS: 81003; 81025; 96372; 99283; J1885

== ENCOUNTER → 2022-11-20 15:58 | Outpatient (CLI) | payer OTHER, SELFPAY | PROVIDERS: Family Provider Pediatrics; PCP Family Medicine; Referring Provider Family Medicine; Visit Provider Family Medicine | DX: Z23 Encounter for immunization (principal) | CPT/HCPCS: 90471; 90686 ==

== ENCOUNTER → 2022-12-04 10:21 | Outpatient (CLI) | payer OTHER, SELFPAY ==
--- NOTE | 2022-12-04 10:21 | DI.US.S_ITS ---
PROCEDURE: US PERIPH VENOUS LOW EXTREM LT INDICATIONS: calf pain TECHNIQUE: Real-time imaging, as well as color and pulse Doppler interrogation, were performed of the lower extremity deep veins from the inguinal ligament to the popliteal fossa, with documentation of the visualized calf veins. COMPARISON: None. FINDINGS: The common femoral, femoral, popliteal, and the visualized calf veins are normally compressible, and free of intraluminal thrombus. Color and pulse Doppler demonstrate normal phasic intraluminal flow. There is normal augmentation response to distal compression maneuver. IMPRESSION: No findings of lower extremity deep venous thrombosis. Dictated by: Abram Lal M.D. on 12/04/2022 at 11:05 Approved by: Abram Lal M.D. on 12/04/2022 at 11:05
== END ==
PROVIDERS: Family Provider Pediatrics; PCP Family Medicine; Referring Provider Nurse Practitioner Family; Visit Provider Nurse Practitioner Family
DX: M79.662 Pain in left lower leg (principal)
CPT/HCPCS: 93971

== ENCOUNTER 2023-01-01 23:12 | Emergency (ER) | payer OTHER, SELFPAY ==
[2023-01-01 23:15] VITALS: BP 189/98; PULSE 88; RESP 18; TEMP 36.9; O2SAT 97; BMI 39.9
[2023-01-01 23:34] VITALS: PULSE 87; O2SAT 97
--- NOTE | 2023-01-01 23:42 | ED.HA ---
HPI - Headache General Chief Complaint: Headache Stated Complaint: migraine Time Seen by Provider: 01/01/23 23:15 Source: patient Mode of arrival: Ambulatory Limitations: no limitations History of Present Illness HPI Narrative: Patient is a 47-year-old female. Does have a history of migraine headaches. Normally takes a Triptan. Has been out of these medications for the past couple days. Is currently having headache that is typical for her. States she woke up with it when she woke up for work approximately 6 hours ago. No fevers. Some nausea. She states that when the Triptan does not work for her she sometimes goes to the walk-in clinic and gets Toradol which seems to be effective. No neck pain. Related Data Home Medications Medication Instructions Recorded Confirmed lamotrigine 100 mg tablet See Rx Instructions .Route .COMPLEX 10/04/21 12/05/22 loratadine 10 mg tablet 10 mg PO DAILY 10/04/21 12/05/22 Previous Rx's Medication Instructions Recorded ergocalciferol (vitamin D2) 1,250 50,000 unit PO QWEEK #8 caps 10/04/21 mcg (50,000 unit) capsule topiramate 100 mg tablet See Rx Instructions .Route 12/23/21 .COMPLEX #180 tabs levothyroxine 100 mcg tablet 100 mcg PO DAILY #90 tabs 02/07/22 medroxyprogesterone 150 mg/mL 150 mg IM [id number] #1 mL 02/07/22 intramuscular suspension (Depo-Provera) escitalopram oxalate 10 mg tablet 10 mg PO DAILY #90 tabs 05/26/22 diazepam 10 mg tablet See Rx Instructions .Route 09/04/22 .COMPLEX #30 tabs cefuroxime axetil 500 mg tablet 500 mg PO BID #14 tabs 09/08/22 ketorolac 10 mg tablet 10 mg PO Q6H PRN pain #14 tabs 09/08/22 ondansetron 4 mg disintegrating 4 mg PO TID-QID PRN nausea and 09/08/22 tablet vomiting #10 tabs oxycodone-acetaminophen 5 mg-325 1 tab PO Q6H PRN pain #20 tabs 09/10/22 mg tablet valacyclovir 1 gram tablet 1,000 mg PO TID #21 tabs 09/10/22 gabapentin 100 mg capsule 100 mg PO TID #60 caps 09/26/22 gabapentin 300 mg capsule 300 mg PO TID PRN pain #60 caps 09/26/22 lidocaine 5 % topical ointment 1 applic topical DAILY #35.44 grams 09/26/22 Allergies Allergy/AdvReac Type Severity Reaction Status Date / Time No Known Drug Allergies Allergy Unknown Verified 12/05/22 10:02 Review of Systems Constitutional Constitutional: Reports system reviewed and no additional complaints, except as documented ENT Ears, Nose, Mouth, and Throat: Reports system reviewed and no additional complaints, except as documented Gastrointestinal Gastrointestinal: Reports system reviewed and no additional complaints, except as documented Neurologic Neurologic: Reports system reviewed and no additional complaints, except as documented Hematologic/Lymphatic On Anticoagulants: No Patient History Medical History Chronic insomnia Encounter for contraceptive management COVID-19 History of nephrolithiasis Bilateral nephrolithiasis Recurrent nephrolithiasis Allergic rhinitis Lymphocytic thyroiditis Thyroid nodule Long-term use of high-risk medication Cervical dystonia GERD (gastroesophageal reflux disease) Pharyngitis Goiter Acute maxillary sinusitis Anxiety History of dysmenorrhea Chronic headaches Migraine without aura and without status migrainosus, not intractable (04/07/15) Seizure disorder (11/09/14) Dysmenorrhea (11/09/14) Needlestick injury with contaminated needle Hydronephrosis, right Kidney stone Surgical History History of skin graft Family History Father Melanoma Hypertension TIA (transient ischemic attack) Grandfather Colon cancer Grandfather Lymphoma Grandmother Parkinsons disease Sister Hypothyroid Graves disease Social History Smoking Status: Never smoker alcohol intake: current Smoking Status: Never smoker alcohol intake frequency: other Substance Use Type: does not use Exam Initial Vital Signs Initial Vital Signs: Vital Signs Temperature 98.5 F 01/01/23 23:15 Pulse Rate 88 01/01/23 23:15 Respiratory Rate 18 01/01/23 23:15 Blood Pressure 189/98 H 01/01/23 23:15 Pulse Oximetry 97 01/01/23 23:15 Oxygen Delivery Method Room Air 11/23/23 23:15 Const General: cooperative, comfortable and No ill appearing HENMT Head: normal to inspection and normocephalic Resp Effort & Inspection: normal respiratory effort Cardio Rate: regular rate Neuro General: patient alert, patient awake and moves all extremities Speech: speech normal Gait: normal gait Extrem General: normal to inspection Course Orders Ordered: Discontinued Medications Diphenhydramine HCl (Diphenhydramine 50 Mg/Ml Vial) 25 mg IV NOW ONE Stop: 01/02/23 00:41 Last Admin: 01/02/23 00:55 Dose: 25 mg Documented By: LAUREN Ketorolac Tromethamine (Ketorolac 30 Mg/Ml Vial) 30 mg IM NOW ONE Stop: 01/01/23 23:44 Last Admin: 01/01/23 23:59 Dose: 30 mg Documented By: ROMA Metoclopramide HCl (Metoclopramide 10 Mg/2 Ml Inj) 10 mg IV NOW ONE Stop: 01/02/23 00:41 Last Admin: 01/02/23 00:54 Dose: 10 mg Documented By: LAUREN Ondansetron HCl (Ondansetron 4 Mg Odt) 4 mg SL NOW ONE Stop: 01/01/23 23:44 Last Admin: 01/01/23 23:59 Dose: 4 mg Documented By: ROMA Vital Signs Vital signs: Vital Signs - 8 hr 01/01/23 23:15 01/01/23 23:34 01/02/23 00:00 Temperature 98.5 F Pulse Rate 88 87 Respiratory Rate 18 Blood Pressure 189/98 H 192/90 H Pulse Oximetry 97 97 Oxygen Delivery Method Room Air 01/02/23 00:00 01/02/23 00:30 01/02/23 00:30 Temperature Pulse Rate 85 84 Respiratory Rate Blood Pressure 193/91 H Pulse Oximetry 97 97 Oxygen Delivery Method 01/02/23 01:00 01/02/23 01:01 01/02/23 01:01 Temperature Pulse Rate 74 77 Respiratory Rate Blood Pressure 172/89 H Pulse Oximetry 98 100 Oxygen Delivery Method 01/02/23 01:19 01/02/23 01:19 01/02/23 01:21 Temperature Pulse Rate 80 89 Respiratory Rate Blood Pressure 191/109 H Pulse Oximetry 97 99 Oxygen Delivery Method 01/02/23 01:21 01/02/23 01:30 01/02/23 01:30 Temperature Pulse Rate 76 Respiratory Rate 18 Blood Pressure 194/86 H 150/62 H Pulse Oximetry 96 Oxygen Delivery Method MDM - Headache MDM Narrative Medical decision making narrative: After Toradol patient only reported a minimal if any improvement of her headache. She was then given Reglan and Benadryl with significant improvement. No fevers. Low suspicion for meningitis. No trauma. Does feel like 1 of her typical migraines. Will discharge patient home with return precautions. Discharge Plan Departure Patient Disposition: Home Clinical Impression: Headache Instructions: DI for Headache Activity Restrictions/Additional Instructions: Recommend that you continue to take all of your medications as directed. Contact your primary doctor for a follow-up. Return to the emergency department for new or worsening symptoms. Prescriptions: No Action topiramate 100 mg tablet See Rx Instructions .ROUTE .COMPLEX Qty: 180 3RF Dose Instruction: Take 1 tablet (100 mg) by mouth 2 times daily Rx Instructions: Take 1 tablet (100 mg) by mouth 2 times daily escitalopram oxalate 10 mg tablet 10 mg PO DAILY Qty: 90 3RF diazepam 10 mg tablet See Rx Instructions .ROUTE .COMPLEX Qty: 30 4RF Rx Instructions: Take 1 tablet by mouth if needed for sleep loratadine 10 mg tablet 10 mg PO DAILY ergocalciferol (vitamin D2) 1,250 mcg (50,000 unit) capsule 50,000 unit PO QWEEK Qty: 8 0RF lamotrigine 100 mg tablet See Rx Instructions .ROUTE .COMPLEX Rx Instructions: 2 tabs qam and 2.5 tabs qpm; levothyroxine 100 mcg tablet 100 mcg PO DAILY Qty: 90 3RF medroxyprogesterone [Depo-Provera] 150 mg/mL suspension 150 mg IM [id number] Qty: 1 8RF gabapentin 300 mg capsule 300 mg PO TID PRN (Reason: pain) Qty: 60 0RF Rx Instructions: can increase to 3 caps TID prn gabapentin 100 mg capsule 100 mg PO TID Qty: 60 0RF Rx Instructions: fill 300mg trial first, only fill 100 if 300 too potent lidocaine 5 % ointment 1 applic topical DAILY Qty: 35.44 0RF Rx Instructions: apply to shingles pain area daily ketorolac 10 mg tablet 10 mg PO Q6H PRN (Reason: pain) Qty: 14 0RF cefuroxime axetil 500 mg tablet 500 mg PO BID Qty: 14 0RF ondansetron 4 mg tablet,disintegrating 4 mg PO TID-QID PRN (Reason: nausea and vomiting) Qty: 10 0RF valacyclovir 1 gram tablet 1,000 mg PO TID Qty: 21 0RF oxycodone-acetaminophen 5-325 mg tablet 1 tab PO Q6H PRN (Reason: pain) Qty: 20 0RF Referrals: Viviana Latham DO [Primary Care Provider] - Stand Alone Forms: Patient Portal/API, Work Release Note
[2023-01-01] MEDS: KETOROLAC 30 MG/ML VIAL IM (23:59)
[2023-01-01] MEDS: ONDANSETRON 4 MG ODT SL (23:59)
[2023-01-02] VITALS (9 sets, daily range): BP systolic 150–194; BP diastolic 62–109; PULSE 74–90; RESP 17–18; O2SAT 95–100
[2023-01-02] MEDS: METOCLOPRAMIDE 10 MG/2 ML INJ IV (00:54)
[2023-01-02] MEDS: diphenhydrAMINE 50 MG/ML VIAL 25 MG IV (00:55)
== END 2023-01-02 02:30 | disposition home or self-care (01) ==
PROVIDERS: Emergency Provider Emergency Medicine; Family Provider Pediatrics; PCP Family Medicine
DX: R51.9 Headache, unspecified (principal)
CPT/HCPCS: 36415; 96372; 96374; 96375; 99283; 99284; J1200; J1885; J2765

== ENCOUNTER 2023-01-23 22:39 | Emergency (ER) | payer OTHER, SELFPAY ==
[2023-01-23 22:45] VITALS: BP 165/83; PULSE 89; RESP 16; TEMP 37.3; O2SAT 97; BMI 39.9
--- NOTE | 2023-01-24 00:16 | ED.LOWEXIN ---
HPI - Extremity Injury (Lower) General Chief Complaint: Extremity Injury, Lower Stated Complaint: turned heard a pop L leg calf/ Time Seen by Provider: 01/23/23 23:51 Source: patient Mode of arrival: Ambulatory History of Present Illness HPI Narrative: 47-year-old female presents for left calf pain since earlier today. Patient states that she was doing a pivoting motion and felt a ?pop? in her lower leg. Since then she is been able to ambulate on the leg, but it is painful and she has been walking on the side of her left foot due to pain. No medications taken prior to arrival. Related Data Home Medications Medication Instructions Recorded Confirmed lamotrigine 100 mg tablet See Rx Instructions .Route .COMPLEX 10/04/21 12/05/22 loratadine 10 mg tablet 10 mg PO DAILY 10/04/21 12/05/22 Previous Rx's Medication Instructions Recorded ergocalciferol (vitamin D2) 1,250 50,000 unit PO QWEEK #8 caps 10/04/21 mcg (50,000 unit) capsule topiramate 100 mg tablet See Rx Instructions .Route 12/23/21 .COMPLEX #180 tabs levothyroxine 100 mcg tablet 100 mcg PO DAILY #90 tabs 02/07/22 medroxyprogesterone 150 mg/mL 150 mg IM [id number] #1 mL 02/07/22 intramuscular suspension (Depo-Provera) escitalopram oxalate 10 mg tablet 10 mg PO DAILY #90 tabs 05/26/22 diazepam 10 mg tablet See Rx Instructions .Route 09/04/22 .COMPLEX #30 tabs cefuroxime axetil 500 mg tablet 500 mg PO BID #14 tabs 09/08/22 ketorolac 10 mg tablet 10 mg PO Q6H PRN pain #14 tabs 09/08/22 ondansetron 4 mg disintegrating 4 mg PO TID-QID PRN nausea and 09/08/22 tablet vomiting #10 tabs oxycodone-acetaminophen 5 mg-325 1 tab PO Q6H PRN pain #20 tabs 09/10/22 mg tablet valacyclovir 1 gram tablet 1,000 mg PO TID #21 tabs 09/10/22 gabapentin 100 mg capsule 100 mg PO TID #60 caps 09/26/22 gabapentin 300 mg capsule 300 mg PO TID PRN pain #60 caps 09/26/22 lidocaine 5 % topical ointment 1 applic topical DAILY #35.44 grams 09/26/22 methocarbamol 500 mg tablet 500 mg PO TID PRN muscle spasm #30 01/24/23 tabs Allergies Allergy/AdvReac Type Severity Reaction Status Date / Time No Known Drug Allergies Allergy Unknown Verified 12/05/22 10:02 Review of Systems Review of Systems Narrative: Negative except as noted above Patient History Medical History Chronic insomnia Encounter for contraceptive management COVID-19 History of nephrolithiasis Bilateral nephrolithiasis Recurrent nephrolithiasis Allergic rhinitis Lymphocytic thyroiditis Thyroid nodule Long-term use of high-risk medication Cervical dystonia GERD (gastroesophageal reflux disease) Pharyngitis Goiter Acute maxillary sinusitis Anxiety History of dysmenorrhea Chronic headaches Migraine without aura and without status migrainosus, not intractable (04/07/15) Seizure disorder (11/09/14) Dysmenorrhea (11/09/14) Needlestick injury with contaminated needle Hydronephrosis, right Kidney stone Surgical History History of skin graft Family History Father Melanoma Hypertension TIA (transient ischemic attack) Grandfather Colon cancer Grandfather Lymphoma Grandmother Parkinsons disease Sister Hypothyroid Graves disease Social History Smoking Status: Never smoker alcohol intake: current Smoking Status: Never smoker alcohol intake frequency: other Substance Use Type: does not use Exam Initial Vital Signs Initial Vital Signs: Vital Signs Temperature 99.2 F 01/23/23 22:45 Pulse Rate 89 01/23/23 22:45 Respiratory Rate 16 01/23/23 22:45 Blood Pressure 165/83 H 01/23/23 22:45 Pulse Oximetry 97 01/23/23 22:45 Oxygen Delivery Method Room Air 01/23/23 22:45 Const: Awake, alert, no acute distress, nontoxic appearing Cardiac: regular rate, regular rhythm RESP: unlabored, clear bilaterally, no wheezing MSK: Atraumatic, negative vaca test, full ROM, no deformity Skin: Warm, Dry, intact, no rashes Neuro: AO x3, CN II-XII grossly intact, moves all extremities Psych: affect normal, mood normal, not suicidal, not homicidal Course Vital Signs Vital signs: Vital Signs - 8 hr 01/23/23 22:45 01/24/23 00:38 Temperature 99.2 F 98.1 F Pulse Rate 89 76 Respiratory Rate 16 20 Blood Pressure 165/83 H 154/78 H Pulse Oximetry 97 98 Oxygen Delivery Method Room Air Room Air MDM - Extremity Injury (Lower) Differential Diagnosis Differential diagnosis: Likely ankle sprain and strain and other (muscle strain, muscle tear) MDM Narrative Medical decision making narrative: Well-appearing patient with pop heard after a pivoting motion. She does have full range of motion of her ankle and lower extremity, negative Vaca's test. In the absence of trauma no indication for x-ray imaging. Patient counseled on likely diagnosis, I recommended Orthopedic follow up she continues to experience symptoms as she may eventually need an MRI, however at this time this could be managed conservatively with ice, rest, anti-inflammatories, and muscle relaxers. Note for light duty sent with patient for work purposes. ED return precautions discussed at bedside. Patient expressed understanding of the plan and is in agreement at this time. All questions answered at the time of discharge. Discharge Plan Departure Patient Disposition: Home Clinical Impression: Strain of calf muscle Instructions: DI for Calf Muscle Strain Prescriptions: New methocarbamol 500 mg tablet 500 mg PO TID PRN (Reason: muscle spasm) Qty: 30 0RF No Action topiramate 100 mg tablet See Rx Instructions .ROUTE .COMPLEX Qty: 180 3RF Dose Instruction: Take 1 tablet (100 mg) by mouth 2 times daily Rx Instructions: Take 1 tablet (100 mg) by mouth 2 times daily escitalopram oxalate 10 mg tablet 10 mg PO DAILY Qty: 90 3RF diazepam 10 mg tablet See Rx Instructions .ROUTE .COMPLEX Qty: 30 4RF Rx Instructions: Take 1 tablet by mouth if needed for sleep loratadine 10 mg tablet 10 mg PO DAILY ergocalciferol (vitamin D2) 1,250 mcg (50,000 unit) capsule 50,000 unit PO QWEEK Qty: 8 0RF lamotrigine 100 mg tablet See Rx Instructions .ROUTE .COMPLEX Rx Instructions: 2 tabs qam and 2.5 tabs qpm; levothyroxine 100 mcg tablet 100 mcg PO DAILY Qty: 90 3RF medroxyprogesterone [Depo-Provera] 150 mg/mL suspension 150 mg IM [id number] Qty: 1 8RF gabapentin 300 mg capsule 300 mg PO TID PRN (Reason: pain) Qty: 60 0RF Rx Instructions: can increase to 3 caps TID prn gabapentin 100 mg capsule 100 mg PO TID Qty: 60 0RF Rx Instructions: fill 300mg trial first, only fill 100 if 300 too potent lidocaine 5 % ointment 1 applic topical DAILY Qty: 35.44 0RF Rx Instructions: apply to shingles pain area daily ketorolac 10 mg tablet 10 mg PO Q6H PRN (Reason: pain) Qty: 14 0RF cefuroxime axetil 500 mg tablet 500 mg PO BID Qty: 14 0RF ondansetron 4 mg tablet,disintegrating 4 mg PO TID-QID PRN (Reason: nausea and vomiting) Qty: 10 0RF valacyclovir 1 gram tablet 1,000 mg PO TID Qty: 21 0RF oxycodone-acetaminophen 5-325 mg tablet 1 tab PO Q6H PRN (Reason: pain) Qty: 20 0RF Referrals: Miscellaneous,Doctor, MD [Primary Care Provider] - Stand Alone Forms: Patient Portal/API, Work Release Note
[2023-01-24 00:38] VITALS: BP 154/78; PULSE 76; RESP 20; TEMP 36.7; O2SAT 98
== END 2023-01-24 00:35 | disposition home or self-care (01) ==
PROVIDERS: Emergency Provider Emergency Medicine; Family Provider Pediatrics
DX: S86.812A Strain of other muscle(s) and tendon(s) at lower leg level, left leg, initial encounter (principal)
CPT/HCPCS: 99281

== ENCOUNTER → 2023-02-17 09:29 | Outpatient (CLI) | payer OTHER, SELFPAY ==
[2023-02-17 10:18] LABS: Add Manual Diff / Slide Review NO; Basophils Absolute Auto 0 /uL (0-100); Basophils Percent Auto 0.5 % (0-2); Eosinophils Absolute Auto 400 /uL (0-450); Eosinophils Percent Auto 5.3 % (2-4); Hematocrit 36.9 % (36-46); Hemoglobin 12.1 g/dL (12.0-16.0); Lymphocytes Absolute Auto 2000 /uL (1100-4500); Lymphocytes Percent Auto 24.8 % (25-40); Mean Corpuscular HGB Conc 32.9 % (30-36); Mean Corpuscular Hemoglobin 26.6 PG (26-34); Mean Corpuscular Volume 80.9 fL (80-100); Monocytes Absolute Auto 700 /uL (0-900); Monocytes Percent Auto 8.5 % (3-14); Neutrophils Absolute Auto 4800 /uL (1500-7000); Neutrophils Percent Auto 60.9 % (50-75); Platelet Count 262 X10^3/uL (150-400); Red Blood Cell Count 4.56 X10^6/uL (4.0-5.2); White Blood Cell Count 7.9 X10^3/uL (4.5-11.0)
[2023-02-17 10:47] LABS: Alanine Aminotransferase 22 IU/L (<35); Albumin 3.8 g/dL (3.5-5.0); Albumin Globulin Ratio 1.4 (1.0-2.8); Alkaline Phosphatase 117 U/L (38-126); Aspartate Aminotransferase 24 IU/L (14-36); BUN Creatinine Ratio 11.3 (6-22); Bilirubin Total 0.5 mg/dL (0.2-1.3); Blood Urea Nitrogen 11 mg/dL (7-17); Calcium 8.8 mg/dL (8.4-10.2); Carbon Dioxide 27 mmol/L (22-32); Chloride 104 mmol/L (98-107); Cholesterol 169 mg/dL (140-199); Estimated Glomerular Filt Rate > 60 mL/min (>60); Globulin 2.7 g/dL (1.7-4.1); Glucose 98 mg/dL (70-100); HDL Cholesterol 35 mg/dL (40-60); HEMOLYSIS < 15 (0-50); LDL Cholesterol Calculated 109 mg/dL (<100); Sodium 137 mmol/L (137-145); Total Protein 6.5 g/dL (6.3-8.2); Triglycerides 124 mg/dL (35-150)
[2023-02-17 10:50] LABS: Hemoglobin A1C% w Est Avg Glu 5.4 % (4.0-6.0)
[2023-02-17 11:18] LABS: TSH w/ Reflex to FT4 5.87 uIU/mL (0.47-4.68)
[2023-02-17 12:03] LABS: Free T4, Direct Thyroxine 1.15 ng/dL (0.78-2.19)
[2023-02-17 14:05] LABS: NT-proBNP (BNP-Adult 18+) 811 pg/mL (<125)
== END ==
PROVIDERS: Physician Assistant; Family Provider Pediatrics; Referring Provider Family Medicine; Visit Provider Family Medicine
DX: Z13.6 Encounter for screening for cardiovascular disorders (principal); E03.9 Hypothyroidism, unspecified; G24.9 Dystonia, unspecified; G43.909 Migraine, unspecified, not intractable, without status migrainosus; M79.89 Other specified soft tissue disorders; Z78.0 Asymptomatic menopausal state
CPT/HCPCS: 36415; 80053; 80061; 83036; 83880; 84439; 84443; 85025

== ENCOUNTER 2023-02-21 16:59 | Emergency (ER) | payer OTHER, SELFPAY ==
[2023-02-21 17:03] VITALS: BP 174/82; PULSE 90; RESP 15; TEMP 36.1; O2SAT 98; BMI 44.1
[2023-02-21] MEDS: diphenhydrAMINE 50 MG/ML VIAL 25 MG IV (17:51)
[2023-02-21] MEDS: ONDANSETRON 4 MG/2 ML INJ IV (17:51)
[2023-02-21] MEDS: KETOROLAC 30 MG/ML VIAL 15 MG IV (17:51)
[2023-02-21] MEDS: SODIUM CHLORIDE 0.9% 1,000 ML 1000 ML IV (17:52)
[2023-02-21] MEDS: ACETAMINOPHEN 325 MG TABLET 975 MG PO (17:52)
[2023-02-21] MEDS: METOCLOPRAMIDE 10 MG/2 ML INJ IV (18:42)
[2023-02-21] MEDS: HYDROMORPHONE 1 MG INJ IV (18:42)
[2023-02-21] MEDS: DEXAMETHASONE 10 MG/ML VIAL IV (18:43)
[2023-02-21 18:44] VITALS: BP 182/97; PULSE 71; RESP 24; O2SAT 98
--- NOTE | 2023-02-21 19:02 | ED.HA ---
HPI - Headache <Nalini Suazo PA-C - Last Filed: 02/21/23 19:11> General Chief Complaint: Headache Stated Complaint: Migrain Time Seen by Provider: 02/21/23 17:27 Mode of arrival: Family Vehicle History of Present Illness HPI Narrative: Patient is a 47-year-old female who presents with migraine headache. She has a history of migraines and this feels very similar to past migraines. She has been taking Tylenol and ibuprofen without relief. She tried her Triptan medicine without relief. This headache has been ongoing for 8 days. She endorses photophobia, mild nausea and a bilateral frontal headache. Denies weakness, double vision, fever, neck pain. Related Data Home Medications Medication Instructions Recorded Confirmed lamotrigine 100 mg tablet See Rx Instructions .Route .COMPLEX 10/04/21 02/17/23 loratadine 10 mg tablet 10 mg PO DAILY 10/04/21 02/17/23 Previous Rx's Medication Instructions Recorded ergocalciferol (vitamin D2) 1,250 50,000 unit PO QWEEK #8 caps 10/04/21 mcg (50,000 unit) capsule topiramate 100 mg tablet See Rx Instructions .Route 12/23/21 .COMPLEX #180 tabs levothyroxine 100 mcg tablet 100 mcg PO DAILY #90 tabs 02/07/22 medroxyprogesterone 150 mg/mL 150 mg IM [id number] #1 mL 02/07/22 intramuscular suspension (Depo-Provera) escitalopram oxalate 10 mg tablet 10 mg PO DAILY #90 tabs 05/26/22 diazepam 10 mg tablet See Rx Instructions .Route 09/04/22 .COMPLEX #30 tabs ketorolac 10 mg tablet 10 mg PO Q6H PRN pain #14 tabs 09/08/22 ondansetron 4 mg disintegrating 4 mg PO TID-QID PRN nausea and 09/08/22 tablet vomiting #10 tabs oxycodone-acetaminophen 5 mg-325 1 tab PO Q6H PRN pain #20 tabs 09/10/22 mg tablet valacyclovir 1 gram tablet 1,000 mg PO TID #21 tabs 09/10/22 gabapentin 100 mg capsule 100 mg PO TID #60 caps 09/26/22 gabapentin 300 mg capsule 300 mg PO TID PRN pain #60 caps 09/26/22 lidocaine 5 % topical ointment 1 applic topical DAILY #35.44 grams 09/26/22 methocarbamol 500 mg tablet 500 mg PO TID PRN muscle spasm #30 01/24/23 tabs Allergies Allergy/AdvReac Type Severity Reaction Status Date / Time No Known Drug Allergies Allergy Unknown Verified 02/17/23 10:29 Review of Systems <Nalini Suazo PA-C - Last Filed: 02/21/23 19:11> Review of Systems ROS Unobtainable: All systems reviewed & are unremarkable except as noted in HPI and below Patient History <Nalini Suazo PA-C - Last Filed: 02/21/23 19:11> Medical History Chronic insomnia Encounter for contraceptive management COVID-19 History of nephrolithiasis Bilateral nephrolithiasis Recurrent nephrolithiasis Allergic rhinitis Lymphocytic thyroiditis Thyroid nodule Long-term use of high-risk medication Cervical dystonia GERD (gastroesophageal reflux disease) Pharyngitis Goiter Acute maxillary sinusitis Anxiety History of dysmenorrhea Chronic headaches Migraine without aura and without status migrainosus, not intractable (04/07/15) Seizure disorder (11/09/14) Dysmenorrhea (11/09/14) Needlestick injury with contaminated needle Hydronephrosis, right Kidney stone Surgical History History of skin graft Family History Father Melanoma Hypertension TIA (transient ischemic attack) Grandfather Colon cancer Grandfather Lymphoma Grandmother Parkinsons disease Sister Hypothyroid Graves disease Social History Smoking Status: Never smoker alcohol intake: current Smoking Status: Never smoker alcohol intake frequency: holidays/special occasions only Substance Use Type: does not use Exam <Nalini Suazo PA-C - Last Filed: 02/21/23 19:11> Narrative Exam Narrative: GENERAL: 47 year old patient appears stated age. Well-developed patient, in moderate distress, hiding face under her nesbitt. NEURO: Patient is alert and oriented x3 and with normal mood and affect. Cranial nerves II through XII are intact and there is no appreciable numbness or weakness. No neck pain or stiffness. HEAD: Atraumatic. Normocephalic. EYES: Pupils equal round and reactive. Extraocular motions intact. No scleral icterus. No injection or drainage. RESPIRATORY: No increased work of breathing or distress EXTREMITIES: No edema or joint tenderness. SKIN: No rash or erythema of visible areas Initial Vital Signs Initial Vital Signs: Vital Signs Temperature 97.0 F L 02/21/23 17:03 Pulse Rate 90 02/21/23 17:03 Respiratory Rate 15 02/21/23 17:03 Blood Pressure 174/82 H 02/21/23 17:03 Pulse Oximetry 98 02/21/23 17:03 Oxygen Delivery Method Room Air 02/21/23 17:03 <Citlali Rivero DO - Last Filed: 02/21/23 19:30> Initial Vital Signs Initial Vital Signs: Vital Signs Temperature 97.0 F L 02/21/23 17:03 Pulse Rate 90 02/21/23 17:03 Respiratory Rate 15 02/21/23 17:03 Blood Pressure 174/82 H 02/21/23 17:03 Pulse Oximetry 98 02/21/23 17:03 Oxygen Delivery Method Room Air 02/21/23 17:03 Course <Nalini Suazo PA-C - Last Filed: 02/21/23 19:11> Orders Ordered: Discontinued Medications Acetaminophen (Acetaminophen 325 Mg Tablet) 975 mg PO NOW ONE Stop: 02/21/23 17:42 Last Admin: 02/21/23 17:52 Dose: 975 mg Documented By: ASCENCION Dexamethasone (Dexamethasone 10 Mg/Ml Vial) 10 mg IV NOW ONE Stop: 02/21/23 18:37 Last Admin: 02/21/23 18:43 Dose: 10 mg Documented By: ASCENCION Diphenhydramine HCl (Diphenhydramine 50 Mg/Ml Vial) 25 mg IV NOW ONE Stop: 02/21/23 17:42 Last Admin: 02/21/23 17:51 Dose: 25 mg Documented By: ASCENCION Hydromorphone HCl (Hydromorphone 1 Mg Inj) 1 mg IV NOW ONE Stop: 02/21/23 18:37 Last Admin: 02/21/23 18:42 Dose: 1 mg Documented By: ASCENCION Sodium Chloride (Normal Saline 0.9%) 1,000 mls @ 1,000 mls/hr IV BOLUS ONE Stop: 02/21/23 18:40 Last Infusion: 02/21/23 18:44 Dose: Infused Documented By: Admin: 02/21/23 17:52 Dose: 1,000 mls/hr Documented By: ASCENCION Ketorolac Tromethamine (Ketorolac 30 Mg/Ml Vial) 15 mg IV NOW ONE Stop: 02/21/23 17:42 Last Admin: 02/21/23 17:51 Dose: 15 mg Documented By: ASCENCION Metoclopramide HCl (Metoclopramide 10 Mg/2 Ml Inj) 10 mg IV NOW ONE Stop: 02/21/23 18:38 Last Admin: 02/21/23 18:42 Dose: 10 mg Documented By: ASCENCION Ondansetron HCl (Ondansetron 4 Mg/2 Ml Inj) 4 mg IV NOW ONE Stop: 02/21/23 17:42 Last Admin: 02/21/23 17:51 Dose: 4 mg Documented By: ASCENCION Vital Signs Vital signs: Vital Signs - 8 hr 02/21/23 17:03 02/21/23 18:44 02/21/23 19:12 Temperature 97.0 F L Pulse Rate 90 71 Respiratory Rate 15 24 Blood Pressure 174/82 H 182/97 H 155/81 H Pulse Oximetry 98 98 Oxygen Delivery Method Room Air Room Air <Citlali Rivero DO - Last Filed: 02/21/23 19:30> Orders Ordered: Discontinued Medications Acetaminophen (Acetaminophen 325 Mg Tablet) 975 mg PO NOW ONE Stop: 02/21/23 17:42 Last Admin: 02/21/23 17:52 Dose: 975 mg Documented By: ASCENCION Dexamethasone (Dexamethasone 10 Mg/Ml Vial) 10 mg IV NOW ONE Stop: 02/21/23 18:37 Last Admin: 02/21/23 18:43 Dose: 10 mg Documented By: ASCENCION Diphenhydramine HCl (Diphenhydramine 50 Mg/Ml Vial) 25 mg IV NOW ONE Stop: 02/21/23 17:42 Last Admin: 02/21/23 17:51 Dose: 25 mg Documented By: ASCENCION Hydromorphone HCl (Hydromorphone 1 Mg Inj) 1 mg IV NOW ONE Stop: 02/21/23 18:37 Last Admin: 02/21/23 18:42 Dose: 1 mg Documented By: ASCENCION Sodium Chloride (Normal Saline 0.9%) 1,000 mls @ 1,000 mls/hr IV BOLUS ONE Stop: 02/21/23 18:40 Last Infusion: 02/21/23 18:44 Dose: Infused Documented By: Admin: 02/21/23 17:52 Dose: 1,000 mls/hr Documented By: ASCENCION Ketorolac Tromethamine (Ketorolac 30 Mg/Ml Vial) 15 mg IV NOW ONE Stop: 02/21/23 17:42 Last Admin: 02/21/23 17:51 Dose: 15 mg Documented By: ASCENCION Metoclopramide HCl (Metoclopramide 10 Mg/2 Ml Inj) 10 mg IV NOW ONE Stop: 02/21/23 18:38 Last Admin: 02/21/23 18:42 Dose: 10 mg Documented By: ASCENCION Ondansetron HCl (Ondansetron 4 Mg/2 Ml Inj) 4 mg IV NOW ONE Stop: 02/21/23 17:42 Last Admin: 02/21/23 17:51 Dose: 4 mg Documented By: ASCENCION Vital Signs Vital signs: Vital Signs - 8 hr 02/21/23 17:03 02/21/23 18:44 02/21/23 19:12 Temperature 97.0 F L Pulse Rate 90 71 Respiratory Rate 15 24 Blood Pressure 174/82 H 182/97 H 155/81 H Pulse Oximetry 98 98 Oxygen Delivery Method Room Air Room Air MDM - Headache <Nalini Suazo PA-C - Last Filed: 02/21/23 19:11> MDM Narrative Medical decision making narrative: Headache considerations include, but not limited to: Subarachnoid hemorrhage, but unlikely as patient denies sudden onset of pain, not worst of life, or neck pain Meningitis considered, but thought unlikely given lack of Brudzinski's, Kernig's sign, altered mental status or fever Giant cell arteritis considered, but thought unlikely given lack of unilateral findings, pain in faith, vision change HTN Emergency considered, but thought unlikely given normal vitals Other serious diagnoses considered unlikely given lack of red flag findings such as sudden onset, increasing frequency, immunocompromise, systemic signs (fever, chills, stiff neck, or rash), focal neurologic findings, trauma, blood thinners, etc. Patient's headache resolved after normal saline bolus, IV diphenhydramine, IV antiemetic, IV ketorolac, IV hydromorphone and IV dexamethasone. Patient's mother will drive her home. Discussed return precautions. Patient's symptoms improved over duration of stay with above-stated therapies. Findings and discharge diagnosis discussed with patient/family followed by verbalization of understanding Return precautions discussed with patient/family whom verbalize understanding of diagnosis and plan Discharge Plan Departure Patient Disposition: Home Clinical Impression: Migraine Qualifiers: Migraine type: unspecified Status migrainosus presence: with status migrainosus Intractability: intractable Qualified Code(s): G43.911 - Migraine, unspecified, intractable, with status migrainosus Instructions: DI for Migraine Activity Restrictions/Additional Instructions: *You have been diagnosed with migraine headache. Your symptoms have resolved after IV fluids, nausea medications, opiate pain medications. We also gave you a dose of steroid medication which can help decrease the chance that your migraine will recur in the next 24 hours. I would encourage you to go home and sleep tonight. Drink plenty of water. You may want to talk to your primary care about a referral to a headache specialist given that you have had headache for so many days this month. If your symptoms return and are not controlled, or if you develop the worst headache of your life, you should return for reassessment. *What to do: *Please continue to take your regular medications as directed. [ ] New medication prescriptions sent to your pharmacy: [ ] [ ] New medication written as a paper prescription [x] No new medications given *Please follow up with your primary care provider in 2-3 days, call for an appointment. Let them know you were seen in the Emergency Department and that we ask that you be seen in follow up. We will electronically transmit a record of today's note if your PCP is in our system *If you do not have a primary care provider please contact the [facility] Resource line at [phone]. They will ask some questions about your medical history and help get you set up with a doctor in the community. *Return to Emergency Department if you should have any new, worsening or concerning symptoms, such as [fever greater than 101 F, shaking chills, worsening pain, persistent vomiting or other concerning symptoms]. Prescriptions: No Action topiramate 100 mg tablet See Rx Instructions .ROUTE .COMPLEX Qty: 180 3RF Dose Instruction: Take 1 tablet (100 mg) by mouth 2 times daily Rx Instructions: Take 1 tablet (100 mg) by mouth 2 times daily escitalopram oxalate 10 mg tablet 10 mg PO DAILY Qty: 90 3RF diazepam 10 mg tablet See Rx Instructions .ROUTE .COMPLEX Qty: 30 4RF Rx Instructions: Take 1 tablet by mouth if needed for sleep loratadine 10 mg tablet 10 mg PO DAILY ergocalciferol (vitamin D2) 1,250 mcg (50,000 unit) capsule 50,000 unit PO QWEEK Qty: 8 0RF lamotrigine 100 mg tablet See Rx Instructions .ROUTE .COMPLEX Rx Instructions: 2 tabs qam and 2.5 tabs qpm; levothyroxine 100 mcg tablet 100 mcg PO DAILY Qty: 90 3RF medroxyprogesterone [Depo-Provera] 150 mg/mL suspension 150 mg IM [id number] Qty: 1 8RF gabapentin 300 mg capsule 300 mg PO TID PRN (Reason: pain) Qty: 60 0RF Rx Instructions: can increase to 3 caps TID prn gabapentin 100 mg capsule 100 mg PO TID Qty: 60 0RF Rx Instructions: fill 300mg trial first, only fill 100 if 300 too potent lidocaine 5 % ointment 1 applic topical DAILY Qty: 35.44 0RF Rx Instructions: apply to shingles pain area daily ketorolac 10 mg tablet 10 mg PO Q6H PRN (Reason: pain) Qty: 14 0RF ondansetron 4 mg tablet,disintegrating 4 mg PO TID-QID PRN (Reason: nausea and vomiting) Qty: 10 0RF valacyclovir 1 gram tablet 1,000 mg PO TID Qty: 21 0RF oxycodone-acetaminophen 5-325 mg tablet 1 tab PO Q6H PRN (Reason: pain) Qty: 20 0RF methocarbamol 500 mg tablet 500 mg PO TID PRN (Reason: muscle spasm) Qty: 30 0RF Referrals: Miscellaneous,Doctor, MD [Primary Care Provider] - Stand Alone Forms: Patient Portal/API ED Sign-out <Citlali Rivero DO - Last Filed: 02/21/23 19:30> Cosign ED Attending Remingtonature Attestation: I was immediately available in the department for consultation.
[2023-02-21 19:12] VITALS: BP 155/81
== END 2023-02-21 19:12 | disposition home or self-care (01) ==
PROVIDERS: Emergency Provider Physician Assistant; Family Provider Pediatrics
DX: G43.911 Migraine, unspecified, intractable, with status migrainosus (principal); Z79.899 Other long term (current) drug therapy
CPT/HCPCS: 96361; 96374; 96375; 99284; J1100; J1170; J1200; J1885; J2405; J2765

== ENCOUNTER 2023-02-26 16:53 | Emergency (ER) | payer OTHER, SELFPAY ==
[2023-02-26 16:58] VITALS: BP 217/106; PULSE 88; RESP 17; TEMP 36.6; O2SAT 97; BMI 42.8
--- NOTE | 2023-02-26 17:09 | ED_ITS ---
HPI - Headache <Modesto García PA-C - Last Filed: 02/26/23 18:37> General Chief Complaint: Headache Stated Complaint: Migraine Time Seen by Provider: 02/26/23 17:06 Mode of arrival: Ambulatory History of Present Illness HPI Narrative: This is a 47-year-old female presents emergency department due to a repeat migraine. She states that the pain is primarily to the front of her head and states that is ?the worst headache she has ever had?. She denies any nausea, vomiting, changes to taste or smell or vision. States that she tried to call her neurologist but they have not picked up the phone. It has taken a Triptan medication without relief. Related Data Home Medications Medication Instructions Recorded Confirmed lamotrigine 100 mg tablet See Rx Instructions .Route .COMPLEX 10/04/21 02/26/23 loratadine 10 mg tablet 10 mg PO DAILY 10/04/21 02/24/23 Previous Rx's Medication Instructions Recorded ergocalciferol (vitamin D2) 1,250 50,000 unit PO QWEEK #8 caps 10/04/21 mcg (50,000 unit) capsule topiramate 100 mg tablet See Rx Instructions .Route 12/23/21 .COMPLEX #180 tabs levothyroxine 100 mcg tablet 100 mcg PO DAILY #90 tabs 02/07/22 medroxyprogesterone 150 mg/mL 150 mg IM [id number] #1 mL 02/07/22 intramuscular suspension (Depo-Provera) escitalopram oxalate 10 mg tablet 10 mg PO DAILY #90 tabs 05/26/22 diazepam 10 mg tablet See Rx Instructions .Route 09/04/22 .COMPLEX #30 tabs ketorolac 10 mg tablet 10 mg PO Q6H PRN pain #14 tabs 09/08/22 ondansetron 4 mg disintegrating 4 mg PO TID-QID PRN nausea and 09/08/22 tablet vomiting #10 tabs oxycodone-acetaminophen 5 mg-325 1 tab PO Q6H PRN pain #20 tabs 09/10/22 mg tablet valacyclovir 1 gram tablet 1,000 mg PO TID #21 tabs 09/10/22 gabapentin 100 mg capsule 100 mg PO TID #60 caps 09/26/22 gabapentin 300 mg capsule 300 mg PO TID PRN pain #60 caps 09/26/22 lidocaine 5 % topical ointment 1 applic topical DAILY #35.44 grams 09/26/22 methocarbamol 500 mg tablet 500 mg PO TID PRN muscle spasm #30 01/24/23 tabs Allergies Allergy/AdvReac Type Severity Reaction Status Date / Time No Known Drug Allergies Allergy Unknown Verified 02/26/23 17:02 Review of Systems <Modesto García PA-C - Last Filed: 02/26/23 18:37> Review of Systems Narrative: GENERAL: Denies chills, fatigue, malaise, fever, sweats. HEENT: Reports head pain, Denies sinus pain, ear pain, sore throat, difficulty swallowing, dizziness. RESPIRATORY: Denies dyspnea, cough, wheezing, hemoptysis, sputum. CARDIOVASCULAR: Denies chest pain, palpitations, orthopnea, edema, GASTROINTESTINAL: Denies nausea, vomiting, abdominal pain, diarrhea, constipation, melena. : Denies dysuria, frequency, incontinence, hematuria, urinary retention. MUSCULOSKELETAL: denies weakness, joint pain, or bony pain SKIN: Denies rash, skin lesions, or other NEUROLOGIC: Denies weakness, headache, numbness, change in speech, confusion, seizures, incoordination. PSYCHIATRIC: No concerning psychosocial issues. 12 point review of systems is negative except for those stated above Patient History <Modesto García PA-C - Last Filed: 02/26/23 18:37> Medical History Chronic insomnia Encounter for contraceptive management COVID-19 History of nephrolithiasis Bilateral nephrolithiasis Recurrent nephrolithiasis Allergic rhinitis Lymphocytic thyroiditis Thyroid nodule Long-term use of high-risk medication Cervical dystonia GERD (gastroesophageal reflux disease) Pharyngitis Goiter Acute maxillary sinusitis Anxiety History of dysmenorrhea Chronic headaches Migraine without aura and without status migrainosus, not intractable (04/07/15) Seizure disorder (11/09/14) Dysmenorrhea (11/09/14) Needlestick injury with contaminated needle Hydronephrosis, right Kidney stone Surgical History History of skin graft Family History Father Melanoma Hypertension TIA (transient ischemic attack) Grandfather Colon cancer Grandfather Lymphoma Grandmother Parkinsons disease Sister Hypothyroid Graves disease Social History Smoking Status: Never smoker alcohol intake: current Smoking Status: Never smoker alcohol intake frequency: holidays/special occasions only Substance Use Type: does not use Exam <Modesto García PA-C - Last Filed: 02/26/23 18:37> Narrative Exam Narrative: GENERAL: Well-developed patient, in mild distress. HEAD: Atraumatic. Normocephalic. EYES: Pupils equal round and reactive. Extraocular motions intact. No scleral icterus. No injection or drainage. ENT: Nose without bleeding, purulent drainage. Throat without erythema, tonsillar hypertrophy or exudate. Airway patent. NECK: Trachea midline. Non tender EXTREMITIES: No edema or joint tenderness. NEURO: AOx3. Cranial nerves 2-12 intact SKIN: No rash or erythema of visible areas Initial Vital Signs Initial Vital Signs: Vital Signs Temperature 98 F 02/26/23 16:58 Pulse Rate 88 02/26/23 16:58 Respiratory Rate 17 02/26/23 16:58 Blood Pressure 217/106 H 02/26/23 16:58 Pulse Oximetry 97 02/26/23 16:58 Oxygen Delivery Method Room Air 02/26/23 16:58 <Citlali Brary MD - Last Filed: 02/28/23 07:34> Initial Vital Signs Initial Vital Signs: Vital Signs Temperature 98 F 02/26/23 16:58 Pulse Rate 88 02/26/23 16:58 Respiratory Rate 17 02/26/23 16:58 Blood Pressure 217/106 H 02/26/23 16:58 Pulse Oximetry 97 02/26/23 16:58 Oxygen Delivery Method Room Air 02/26/23 16:58 Course <Modesto García PA-C - Last Filed: 02/26/23 18:37> Orders Ordered: Discontinued Medications Dexamethasone (Dexamethasone 10 Mg/Ml Vial) 10 mg IV NOW ONE Stop: 02/26/23 17:58 Last Admin: 02/26/23 18:10 Dose: 10 mg Documented By: AMV Diphenhydramine HCl (Diphenhydramine 50 Mg/Ml Vial) 50 mg IV NOW ONE Stop: 02/26/23 17:20 Last Admin: 02/26/23 17:39 Dose: 50 mg Documented By: AMV Sodium Chloride (Normal Saline 0.9%) 1,000 mls @ 1,000 mls/hr IV BOLUS ONE Stop: 02/26/23 18:18 Last Infusion: 02/26/23 18:30 Dose: Infused Documented By: Admin: 02/26/23 17:38 Dose: 1,000 mls/hr Documented By: AMV Acetaminophen (Ofirmev) 1,000 mg in 100 mls @ 400 mls/hr IV NOW ONE Stop: 02/26/23 18:11 Last Infusion: 02/26/23 18:30 Dose: Infused Documented By: Admin: 02/26/23 18:10 Dose: 400 mls/hr Documented By: AMV Ketorolac Tromethamine (Ketorolac 30 Mg/Ml Vial) 15 mg IV NOW ONE Stop: 02/26/23 17:20 Last Admin: 02/26/23 17:32 Dose: 15 mg Documented By: AMV Prochlorperazine (Prochlorperazine 10 Mg/2 Ml Vial) 10 mg IV NOW ONE Stop: 02/26/23 17:20 Last Admin: 02/26/23 17:38 Dose: 10 mg Documented By: AMV Vital Signs Vital signs: Vital Signs - 8 hr 02/26/23 16:58 Temperature 98 F Pulse Rate 88 Respiratory Rate 17 Blood Pressure 217/106 H Pulse Oximetry 97 Oxygen Delivery Method Room Air <Citlali Barry MD - Last Filed: 02/28/23 07:34> Orders Ordered: Discontinued Medications Dexamethasone (Dexamethasone 10 Mg/Ml Vial) 10 mg IV NOW ONE Stop: 02/26/23 17:58 Last Admin: 02/26/23 18:10 Dose: 10 mg Documented By: AMV Diphenhydramine HCl (Diphenhydramine 50 Mg/Ml Vial) 50 mg IV NOW ONE Stop: 02/26/23 17:20 Last Admin: 02/26/23 17:39 Dose: 50 mg Documented By: AMV Sodium Chloride (Normal Saline 0.9%) 1,000 mls @ 1,000 mls/hr IV BOLUS ONE Stop: 02/26/23 18:18 Last Infusion: 02/26/23 18:30 Dose: Infused Documented By: Admin: 02/26/23 17:38 Dose: 1,000 mls/hr Documented By: AMV Acetaminophen (Ofirmev) 1,000 mg in 100 mls @ 400 mls/hr IV NOW ONE Stop: 02/26/23 18:11 Last Infusion: 02/26/23 18:30 Dose: Infused Documented By: Admin: 02/26/23 18:10 Dose: 400 mls/hr Documented By: AMV Ketorolac Tromethamine (Ketorolac 30 Mg/Ml Vial) 15 mg IV NOW ONE Stop: 02/26/23 17:20 Last Admin: 02/26/23 17:32 Dose: 15 mg Documented By: AMV Prochlorperazine (Prochlorperazine 10 Mg/2 Ml Vial) 10 mg IV NOW ONE Stop: 02/26/23 17:20 Last Admin: 02/26/23 17:38 Dose: 10 mg Documented By: AMV Vital Signs Vital signs: Vital Signs - 8 hr 02/26/23 16:58 Temperature 98 F Pulse Rate 88 Respiratory Rate 17 Blood Pressure 217/106 H Pulse Oximetry 97 Oxygen Delivery Method Room Air MDM - Headache <Modesto García PA-C - Last Filed: 02/26/23 18:37> Imaging Data CT scan - head: Radiologist's Impression: [place] [address] CT Scan Report Signed Patient: Felicitas Milton MR#: [id number] : 1975 Acct:[id number] Age/Sex: 47 / F Date of Service: 02/26/23 Loc: ED Accession Number: [id number] Procedure: CT head/brain wo con Ordering Provider: Modesto García P.A-C PROCEDURE: CT HEAD/BRAIN WO CON INDICATIONS: Reported worst headache of her life TECHNIQUE: Noncontrast 4.5 mm thick angled axial sections acquired from the foramen magnum to the vertex, with coronal and sagittal reformats. For radiation dose reduction, the following was used: automated exposure control, adjustment of mA and/or kV according to patient size. COMPARISON: None. FINDINGS: Image quality: Diagnostic. CSF spaces: Basal cisterns are patent. No extra-axial fluid collections. Ventricles are normal in size and shape. Brain: No midline shift. No intracranial masses or hemorrhage. Snell-white matter interface is normal. Skull and face: Calvarium and visualized facial bones are intact, without valentina picious lesions. Sinuses: Visualized sinuses and mastoids are clear. IMPRESSION: No acute intracranial pathology. Dictated by: Juan Williamson M.D. on 02/26/2023 at 17:45 Approved by: Juan Williamson M.D. on 02/26/2023 at 17:[address] [facility] Narrative Medical decision making narrative: ED course: This is a 47-year-old female presents emergency department due to a repeat migraine. She states this is very similar to prior. She was given Toradol, normal saline bolus, Compazine, Benadryl, Decadron, Tylenol which he lped to improve her headache. CT head ordered as patient states that this is the worst headache she has ever had. CT head was unremarkable. Recommended patient follow up with a neurologist for further management. CC: Headache Complicating co-morbidities: History of migraines Data collected from: Previous notes Medical records reviewed: Patient was seen here 5 days ago due to migraine. History of migraines. Has a Triptan medication which she was taking which has been ineffective. History of seizures. Patient was given Tylenol, dexamethasone, Benadryl, Dilaudid, normal saline, Toradol, Reglan, Zofran which helped improve her symptoms and patient was discharged home. Differential considered, but not limited to: Migraine, intracranial bleed Exam documented above, pertinent findings include: Reassuring neuro exam Lab Test results independently reviewed as above. Pertinent findings: None Imaging studies independently reviewed: CT head unremarkable Scores Used: None MIPS Elements: None Consultations: None Treatments: As above Re-evaluations: After checking the patient after treatments patient was reports pain improved. Discussion: Discussed plan with the patient was comfortable with the plan Diagnosis: Migraine Disposition: see below, along with detailed discharge instructions that have been reviewed with patient as well as indications for ED re-evaluation and additional outpatient follow up Discharge Plan Departure Patient Disposition: Home Clinical Impression: Migraine Instructions: DI for Migraine Activity Restrictions/Additional Instructions: Thank you for coming to the [facility] Emergency Department today. I am glad that the medications given today were able to help with the headache. As we discussed you may concurrently take ibuprofen and Tylenol to the max dosing recommended another bottle to help with your symptoms. You may also take the Triptan medication. I recommend he follow up with your neurologist for long-term management as they the best people to treat these chronic migraines. Please return to the emergency department if you develop any sort speech, nausea, vomiting, or any other concerning signs or symptoms. I hope you feel better soon. Please follow up with your primary care provider within a week if your symptoms continue. If you do not have a primary care provider please contact the [facility] Resource line at [phone]. They will ask some questions about your medical history and help you get set up with a provider in the community. Prescriptions: No Action topiramate 100 mg tablet See Rx Instructions .ROUTE .COMPLEX Qty: 180 3RF Dose Instruction: Take 1 tablet (100 mg) by mouth 2 times daily Rx Instructions: Take 1 tablet (100 mg) by mouth 2 times daily escitalopram oxalate 10 mg tablet 10 mg PO DAILY Qty: 90 3RF diazepam 10 mg tablet See Rx Instructions .ROUTE .COMPLEX Qty: 30 4RF Rx Instructions: Take 1 tablet by mouth if needed for sleep loratadine 10 mg tablet 10 mg PO DAILY ergocalciferol (vitamin D2) 1,250 mcg (50,000 unit) capsule 50,000 unit PO QWEEK Qty: 8 0RF lamotrigine 100 mg tablet See Rx Instructions .ROUTE .COMPLEX Rx Instructions: 2 tabs qam and 2.5 tabs qpm; levothyroxine 100 mcg tablet 100 mcg PO DAILY Qty: 90 3RF medroxyprogesterone [Depo-Provera] 150 mg/mL suspension 150 mg IM [id number] Qty: 1 8RF gabapentin 300 mg capsule 300 mg PO TID PRN (Reason: pain) Qty: 60 0RF Rx Instructions: can increase to 3 caps TID prn gabapentin 100 mg capsule 100 mg PO TID Qty: 60 0RF Rx Instructions: fill 300mg trial first, only fill 100 if 300 too potent lidocaine 5 % ointment 1 applic topical DAILY Qty: 35.44 0RF Rx Instructions: apply to shingles pain area daily ketorolac 10 mg tablet 10 mg PO Q6H PRN (Reason: pain) Qty: 14 0RF ondansetron 4 mg tablet,disintegrating 4 mg PO TID-QID PRN (Reason: nausea and vomiting) Qty: 10 0RF valacyclovir 1 gram tablet 1,000 mg PO TID Qty: 21 0RF oxycodone-acetaminophen 5-325 mg tablet 1 tab PO Q6H PRN (Reason: pain) Qty: 20 0RF methocarbamol 500 mg tablet 500 mg PO TID PRN (Reason: muscle spasm) Qty: 30 0RF Referrals: Miscellaneous,Doctor, MD [Primary Care Provider] - Stand Alone Forms: Patient Portal/API ED Sign-out <Citlali Barry MD - Last Filed: 02/28/23 07:34> Cosign ED Attending Cosignature Attestation: I did not see this patient. I was available all times for consultation.
--- NOTE | 2023-02-26 17:26 | DI.CT.S_ITS ---
PROCEDURE: CT HEAD/BRAIN WO CON INDICATIONS: Reported worst headache of her life TECHNIQUE: Noncontrast 4.5 mm thick angled axial sections acquired from the foramen magnum to the vertex, with coronal and sagittal reformats. For radiation dose reduction, the following was used: automated exposure control, adjustment of mA and/or kV according to patient size. COMPARISON: None. FINDINGS: Image quality: Diagnostic. CSF spaces: Basal cisterns are patent. No extra-axial fluid collections. Ventricles are normal in size and shape. Brain: No midline shift. No intracranial masses or hemorrhage. Snell-white matter interface is normal. Skull and face: Calvarium and visualized facial bones are intact, without suspicious lesions. Sinuses: Visualized sinuses and mastoids are clear. IMPRESSION: No acute intracranial pathology. Dictated by: Juan Williamson M.D. on 02/26/2023 at 17:45 Approved by: Juan Williamson M.D. on 02/26/2023 at 17:46
[2023-02-26] MEDS: KETOROLAC 30 MG/ML VIAL 15 MG IV (17:32)
[2023-02-26] MEDS: PROCHLORPERAZINE 10 MG/2 ML VIAL IV (17:38)
[2023-02-26] MEDS: SODIUM CHLORIDE 0.9% 1,000 ML 1000 ML IV (17:38)
[2023-02-26] MEDS: diphenhydrAMINE 50 MG/ML VIAL IV (17:39)
[2023-02-26] MEDS: DEXAMETHASONE 10 MG/ML VIAL IV (18:10)
[2023-02-26] MEDS: ACETAMINOPHEN IV 1,000 MG/100 ML VIAL 400 MG IV (18:10)
[2023-02-26 18:45] VITALS: BP 164/79; PULSE 66; RESP 16; O2SAT 98
== END 2023-02-26 18:47 | disposition home or self-care (01) ==
PROVIDERS: Emergency Provider Physician Assistant Medical; Family Provider Pediatrics
DX: G43.909 Migraine, unspecified, not intractable, without status migrainosus (principal); Z79.899 Other long term (current) drug therapy
CPT/HCPCS: 70450; 96365; 96375; 99284; J0136; J0780; J1100; J1200; J1885

== ENCOUNTER 2023-07-31 19:03 | Emergency (ER) | payer OTHER, SELFPAY ==
[2023-07-31 19:23] VITALS: BP 186/97; PULSE 82; RESP 16; TEMP 36.2; O2SAT 96; BMI 41.0
== END 2023-07-31 21:54 | disposition left against medical advice (07) ==
PROVIDERS: Emergency Provider Emergency Medicine; Family Provider Pediatrics
DX: M25.512 Pain in left shoulder (principal)
CPT/HCPCS: 99281

== ENCOUNTER 2023-08-01 10:47 | Emergency (ER) | payer OTHER, SELFPAY ==
[2023-08-01 10:48] VITALS: BP 173/85; PULSE 87; RESP 14; TEMP 36.7; O2SAT 98; BMI 41.0
--- NOTE | 2023-08-01 10:59 | DI.RAD.S_ITS ---
PROCEDURE: XR SHOULDER LT MIN 2V INDICATIONS: Left shoulder pain. TECHNIQUE: 2 views of the shoulder were acquired. COMPARISON: None. FINDINGS: Bones: No fractures or dislocations. No suspicious bony lesions. Visualized ribs appear intact. Soft tissues: No suspicious soft tissue calcifications. IMPRESSION: No acute bony abnormality. Approved by: Stephany Pedro M.D.,Ph.D. on 08/01/2023 at 10:47
[2023-08-01] MEDS: ACETAMINOPHEN 325 MG TABLET 975 MG PO (11:52)
[2023-08-01] MEDS: KETOROLAC 30 MG/ML VIAL IM (11:56)
--- NOTE | 2023-08-01 11:57 | ED.UPPEXIN ---
HPI - Extremity Injury (Upper) General Chief Complaint: Extremity Injury, Upper Stated Complaint: Left hand and arm injury Time Seen by Provider: 08/01/23 11:05 Source: patient Mode of arrival: Ambulatory History of Present Illness HPI narrative: 47-year-old female presents for atraumatic left shoulder pain. Patient states that prior to symptom onset she was gardening, which is unusual for her. She went to the walk-in clinic, and received a shot of Toradol which helped. She has been to the chiropractor several times but continues to have pain. She states that the chiropractor told her that if this was a pinched nerve it should be resolved by now and she decided to come to the ER for evaluation. Reports some tingling sensation in her fingertips. Has been taking Tylenol at home without significant relief. She states that her primary pain is behind her left shoulder blade Related Data Home Medications Medication Instructions Recorded Confirmed lamotrigine 100 mg tablet See Rx Instructions .Route .COMPLEX 10/04/21 07/31/23 loratadine 10 mg tablet 10 mg PO DAILY 10/04/21 07/31/23 rizatriptan 10 mg disintegrating mg PO 07/31/23 07/31/23 tablet rizatriptan 10 mg tablet mg PO DAILY 07/31/23 07/31/23 sodium,potassium,mag sulfates 17.5 PO 07/31/23 07/31/23 gram-3.13 gram-1.6 gram oral soln triamcinolone acetonide 0.1 % 1 applic topical 07/31/23 07/31/23 topical cream Previous Rx's Medication Instructions Recorded ergocalciferol (vitamin D2) 1,250 50,000 unit PO QWEEK #8 caps 10/04/21 mcg (50,000 unit) capsule levothyroxine 100 mcg tablet 100 mcg PO DAILY #90 tabs 02/07/22 medroxyprogesterone 150 mg/mL 150 mg IM [id number] #1 mL 02/07/22 intramuscular suspension (Depo-Provera) diazepam 10 mg tablet See Rx Instructions .Route 09/04/22 .COMPLEX #30 tabs ketorolac 10 mg tablet 10 mg PO Q6H PRN pain #14 tabs 09/08/22 methocarbamol 500 mg tablet 500 mg PO TID PRN muscle spasm #30 01/24/23 tabs gabapentin 300 mg capsule 300 mg PO TID PRN pain #60 caps 06/03/23 escitalopram oxalate 10 mg tablet 10 mg PO DAILY #90 tabs 06/09/23 cyclobenzaprine 5 mg tablet 5 mg PO TID PRN muscle spasm #20 07/31/23 tabs valacyclovir 1 gram tablet 1,000 mg PO TID 7 days #21 tabs 07/31/23 hydrocodone 5 mg-acetaminophen 325 1 tab PO Q6H PRN pain #10 tabs 08/02/23 mg tablet Allergies Allergy/AdvReac Type Severity Reaction Status Date / Time No Known Drug Allergies Allergy Unknown Verified 08/01/23 11:00 Patient History Medical History Chronic insomnia Encounter for contraceptive management COVID-19 History of nephrolithiasis Bilateral nephrolithiasis Recurrent nephrolithiasis Allergic rhinitis Lymphocytic thyroiditis Thyroid nodule Long-term use of high-risk medication Cervical dystonia GERD (gastroesophageal reflux disease) Pharyngitis Goiter Acute maxillary sinusitis Anxiety History of dysmenorrhea Chronic headaches Migraine without aura and without status migrainosus, not intractable (04/07/15) Seizure disorder (11/09/14) Dysmenorrhea (11/09/14) Needlestick injury with contaminated needle Hydronephrosis, right Kidney stone Surgical History History of skin graft Family History Father Melanoma Hypertension TIA (transient ischemic attack) Grandfather Colon cancer Grandfather Lymphoma Grandmother Parkinsons disease Sister Hypothyroid Graves disease Social History Smoking Status: Never smoker alcohol intake: current Smoking Status: Never smoker alcohol intake frequency: holidays/special occasions only Substance Use Type: does not use Exam Initial Vital Signs Initial Vital Signs: Vital Signs Temperature 98.1 F 08/01/23 10:48 Pulse Rate 87 08/01/23 10:48 Respiratory Rate 14 08/01/23 10:48 Blood Pressure 173/85 H 08/01/23 10:48 Pulse Oximetry 98 08/01/23 10:48 Oxygen Delivery Method Room Air 08/01/23 10:48 Const: Awake, alert, no acute distress, nontoxic appearing MSK: Atraumatic, full range of motion, palpable muscle spasm just medial to left scapula Skin: Warm, Dry, intact, no rashes Neuro: AO x3, CN II-XII grossly intact, moves all extremities Course Orders Ordered: Discontinued Medications Acetaminophen (Acetaminophen 325 Mg Tablet) 975 mg PO NOW ONE Stop: 08/01/23 11:38 Last Admin: 08/01/23 11:52 Dose: 975 mg Documented By: TC Ketorolac Tromethamine (Ketorolac 30 Mg/Ml Vial) 30 mg IM NOW ONE Stop: 08/01/23 11:38 Last Admin: 08/01/23 11:56 Dose: 30 mg Documented By: TC Vital Signs Vital signs: Vital Signs - 8 hr 08/01/23 10:48 Temperature 98.1 F Pulse Rate 87 Respiratory Rate 14 Blood Pressure 173/85 H Pulse Oximetry 98 Oxygen Delivery Method Room Air [facility] - Extremity Injury (Upper) Imaging Data Extremity x-ray #1: Radiologist's Impression: PROCEDURE: XR SHOULDER LT MIN 2V INDICATIONS: Left shoulder pain. TECHNIQUE: 2 views of the shoulder were acquired. COMPARISON: None. FINDINGS: Bones: No fractures or dislocations. No suspicious bony lesions. Visualized ribs appear intact. Soft tissues: No suspicious soft tissue calcifications. IMPRESSION: No acute bony abnormality. Approved by: Stephany Pedro M.D.,Ph.D. on 08/01/2023 at 10:47 [facility] Narrative Medical decision making narrative: Well appearing patient wiht 4 days of arm pain. On exam today ROM is intact, full, no focal deficits. Palpable muscle spasm between left shoulder blade and spine which correlates with area of maximum pain. Palpable pulses. X-ray imaging negative for acute findings. Patient given Tylenol and Toradol shot, given sling for comfort. Recommended Flexeril as needed for muscle spasms as well as gentle stretching exercises. PCP follow up advised Discharge Plan Departure Patient Disposition: Home Clinical Impression: Acute pain of left shoulder Instructions: DI for Shoulder Sprain Activity Restrictions/Additional Instructions: Your X ray today was normal. Take 400 mg of ibuprofen and up to 1000 mg of Tylenol every 6 hours as needed for pain. Make sure to take no more than 4000 mg of Tylenol daily. You may also apply heat and use gentle stretching for additional pain relief. Wear the sling as desired for comfort. I expect that your symptoms are musculoskeletal in nature and we will eventually resolve with conservative therapy in the next several days. Follow up with your primary care doctor. Prescriptions: No Action sodium,potassium,mag sulfates 17.5-3.13-1.6 gram recon soln PO rizatriptan 10 mg tablet,disintegrating PO triamcinolone acetonide 0.1 % cream 1 applic topical rizatriptan 10 mg tablet PO DAILY valacyclovir 1 gram tablet 1,000 mg PO TID 7 Days Qty: 21 0RF cyclobenzaprine 5 mg tablet 5 mg PO TID PRN (Reason: muscle spasm) Qty: 20 0RF diazepam 10 mg tablet See Rx Instructions .ROUTE .COMPLEX Qty: 30 4RF Rx Instructions: Take 1 tablet by mouth if needed for sleep gabapentin 300 mg capsule 300 mg PO TID PRN (Reason: pain) Qty: 60 0RF Rx Instructions: can increase to 3 caps TID prn escitalopram oxalate 10 mg tablet 10 mg PO DAILY Qty: 90 0RF loratadine 10 mg tablet 10 mg PO DAILY ergocalciferol (vitamin D2) 1,250 mcg (50,000 unit) capsule 50,000 unit PO QWEEK Qty: 8 0RF lamotrigine 100 mg tablet See Rx Instructions .ROUTE .COMPLEX Rx Instructions: 2 tabs qam and 2.5 tabs qpm; levothyroxine 100 mcg tablet 100 mcg PO DAILY Qty: 90 3RF medroxyprogesterone [Depo-Provera] 150 mg/mL suspension 150 mg IM [id number] Qty: 1 8RF ketorolac 10 mg tablet 10 mg PO Q6H PRN (Reason: pain) Qty: 14 0RF methocarbamol 500 mg tablet 500 mg PO TID PRN (Reason: muscle spasm) Qty: 30 0RF hydrocodone-acetaminophen 5-325 mg tablet 1 tab PO Q6H PRN (Reason: pain) Qty: 10 0RF Referrals: Miscellaneous,Doctor, MD [Primary Care Provider] - Stand Alone Forms: Patient Portal/API
[2023-08-01 12:12] VITALS: BP 160/84; PULSE 79; O2SAT 96
== END 2023-08-01 12:12 | disposition home or self-care (01) ==
PROVIDERS: Emergency Provider Emergency Medicine; Family Provider Pediatrics
DX: M25.512 Pain in left shoulder (principal)
CPT/HCPCS: 73030; 96372; 99283; 99284; J1885

== ENCOUNTER 2023-08-02 10:42 | Emergency (ER) | payer OTHER, SELFPAY ==
[2023-08-02 11:00] VITALS: BP 177/92; PULSE 79; RESP 18; TEMP 36.8; O2SAT 97; BMI 41.0
[2023-08-02 16:43] VITALS: BP 137/75; PULSE 76; RESP 18; O2SAT 97
--- NOTE | 2023-08-02 17:12 | ED.EXTPRO ---
HPI - Extremity Problem General Chief complaint: Extremity Problem,Nontraumatic Stated complaint: Shoulder pain Time Seen by Provider: 08/02/23 17:12 Source: patient Mode of arrival: Ambulatory History of Present Illness HPI Narrative: Patient is a 47-year-old female history of seizure disorder presenting today with a nontraumatic left shoulder blade pain. She reports that she was seen evaluated here yesterday she had an x-ray that was negative. She was started on Flexeril she says sort of helps. She denies any sort of weakness she is little bit of numbness. He continues to have pain despite Tylenol ibuprofen and Flexeril. Again no injury. Related Data Home Medications Medication Instructions Recorded Confirmed lamotrigine 100 mg tablet See Rx Instructions .Route .COMPLEX 10/04/21 07/31/23 loratadine 10 mg tablet 10 mg PO DAILY 10/04/21 07/31/23 rizatriptan 10 mg disintegrating mg PO 07/31/23 07/31/23 tablet rizatriptan 10 mg tablet mg PO DAILY 07/31/23 07/31/23 sodium,potassium,mag sulfates 17.5 PO 07/31/23 07/31/23 gram-3.13 gram-1.6 gram oral soln triamcinolone acetonide 0.1 % 1 applic topical 07/31/23 07/31/23 topical cream Previous Rx's Medication Instructions Recorded ergocalciferol (vitamin D2) 1,250 50,000 unit PO QWEEK #8 caps 10/04/21 mcg (50,000 unit) capsule levothyroxine 100 mcg tablet 100 mcg PO DAILY #90 tabs 02/07/22 medroxyprogesterone 150 mg/mL 150 mg IM [id number] #1 mL 02/07/22 intramuscular suspension (Depo-Provera) diazepam 10 mg tablet See Rx Instructions .Route 09/04/22 .COMPLEX #30 tabs ketorolac 10 mg tablet 10 mg PO Q6H PRN pain #14 tabs 09/08/22 methocarbamol 500 mg tablet 500 mg PO TID PRN muscle spasm #30 01/24/23 tabs gabapentin 300 mg capsule 300 mg PO TID PRN pain #60 caps 06/03/23 escitalopram oxalate 10 mg tablet 10 mg PO DAILY #90 tabs 06/09/23 cyclobenzaprine 5 mg tablet 5 mg PO TID PRN muscle spasm #20 07/31/23 tabs valacyclovir 1 gram tablet 1,000 mg PO TID 7 days #21 tabs 07/31/23 hydrocodone 5 mg-acetaminophen 325 1 tab PO Q6H PRN pain #10 tabs 08/02/23 mg tablet Allergies Allergy/AdvReac Type Severity Reaction Status Date / Time No Known Drug Allergies Allergy Unknown Verified 08/01/23 11:00 Patient History Medical History Chronic insomnia Encounter for contraceptive management COVID-19 History of nephrolithiasis Bilateral nephrolithiasis Recurrent nephrolithiasis Allergic rhinitis Lymphocytic thyroiditis Thyroid nodule Long-term use of high-risk medication Cervical dystonia GERD (gastroesophageal reflux disease) Pharyngitis Goiter Acute maxillary sinusitis Anxiety History of dysmenorrhea Chronic headaches Migraine without aura and without status migrainosus, not intractable (04/07/15) Seizure disorder (11/09/14) Dysmenorrhea (11/09/14) Needlestick injury with contaminated needle Hydronephrosis, right Kidney stone Surgical History History of skin graft Family History Father Melanoma Hypertension TIA (transient ischemic attack) Grandfather Colon cancer Grandfather Lymphoma Grandmother Parkinsons disease Sister Hypothyroid Graves disease Social History Smoking Status: Never smoker alcohol intake: current Smoking Status: Never smoker alcohol intake frequency: holidays/special occasions only Substance Use Type: does not use Exam Initial Vital Signs Initial Vital Signs: Vital Signs Temperature 98.2 F 08/02/23 11:00 Pulse Rate 79 08/02/23 11:00 Respiratory Rate 18 08/02/23 11:00 Blood Pressure 177/92 H 08/02/23 11:00 Pulse Oximetry 97 08/02/23 11:00 Oxygen Delivery Method Room Air 08/02/23 11:00 GENERAL: Alert sleeping well-appearing 47-year-old female easily arousable CARDIOVASCULAR: peripheral pulses in tact, cap refill <2 sec RESPIRATORY: No respiratory distress, speaks in full sentences without difficulty EXTREMITIES: Normal range of motion, no clubbing or edema. 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 Normal gait and speech. SKIN: Warm, dry, no petechiae, no rashes or lesions. Course Orders Ordered: Discontinued Medications Hydrocodone Bitart/Acetaminophen (Hydrocodone/Acet 5/325 Prepack) 1 bottle MISC DIRECTED ONE Stop: 08/02/23 17:20 Last Admin: 08/02/23 17:35 Dose: 1 bottle Documented By: Vital Signs Vital signs: Vital Signs - 8 hr 08/02/23 11:00 08/02/23 16:43 08/02/23 17:37 Temperature 98.2 F Pulse Rate 79 76 70 Respiratory Rate 18 18 16 Blood Pressure 177/92 H 137/75 132/88 Pulse Oximetry 97 97 100 Oxygen Delivery Method Room Air Room Air Room Air MDM - Extremity (Nontraumatic) MDM Narrative Medical decision making narrative: Patient 47-year-old female presents today with ongoing left scapular pain with out injury. X-ray was done yesterday negative. She continues to have pain despite ibuprofen Tylenol and Flexeril. No obvious injury. She does have decreased range of motion pain is reproducible with movement. This is consistent with musculoskeletal pain rather than cardiac. Did give her [place] to help her sleep encouraged supportive care. Discharge Plan Departure Patient Disposition: Home Clinical Impression: Acute shoulder pain Instructions: DI for Shoulder Pain Activity Restrictions/Additional Instructions: *You have been diagnosed with left shoulder pain *What to do: At this time increase activity as tolerated may need to sleep in a recliner. Ice and heat. *Continue to take medications as directed Motrin 600 mg every 6 hours for [id number]-gu-[id number] pain [place] 1 tablet every 6 hours if needed for severe pain *Follow up with your primary care provider in 2-3 days or call [phone] *Return to ER if you should have increasing numbness tingling weakness [or] any new, worsening or concerning symptoms CONTROLLED SUBSTANCE DISCHARGE (Narcotoic/benzodiazepine/Flexeril/Phenergan) 1. You have been prescribed narcotic medications, it does have acetaminophen/Tylenol/paracetamol in it, DO NOT TAKE MORE THAN 4,00mg in 24 hours of Tylenol. TRAMADOL DOES NOT CONTAIN TYLENOL 2. Please understand that we cannot provide further refills of narcotics, benzodiazepines or controlled substances through the ED and her pain management will need to be through your provider. 3. While on these medications you cannot drive or operate heavy machinery. 4. You cannot sign legal documents or perform any duties such as this. 5. As long as you're taking opiate pain medications he should also be taking a stool softener such as Colace, Dulcolax, MiraLAX or prune juice, to help avoid constipation. Prescriptions: New hydrocodone-acetaminophen 5-325 mg tablet 1 tab PO Q6H PRN (Reason: pain) Qty: 10 0RF No Action sodium,potassium,mag sulfates 17.5-3.13-1.6 gram recon soln PO rizatriptan 10 mg tablet,disintegrating PO triamcinolone acetonide 0.1 % cream 1 applic topical rizatriptan 10 mg tablet PO DAILY valacyclovir 1 gram tablet 1,000 mg PO TID 7 Days Qty: 21 0RF cyclobenzaprine 5 mg tablet 5 mg PO TID PRN (Reason: muscle spasm) Qty: 20 0RF diazepam 10 mg tablet See Rx Instructions .ROUTE .COMPLEX Qty: 30 4RF Rx Instructions: Take 1 tablet by mouth if needed for sleep gabapentin 300 mg capsule 300 mg PO TID PRN (Reason: pain) Qty: 60 0RF Rx Instructions: can increase to 3 caps TID prn escitalopram oxalate 10 mg tablet 10 mg PO DAILY Qty: 90 0RF loratadine 10 mg tablet 10 mg PO DAILY ergocalciferol (vitamin D2) 1,250 mcg (50,000 unit) capsule 50,000 unit PO QWEEK Qty: 8 0RF lamotrigine 100 mg tablet See Rx Instructions .ROUTE .COMPLEX Rx Instructions: 2 tabs qam and 2.5 tabs qpm; levothyroxine 100 mcg tablet 100 mcg PO DAILY Qty: 90 3RF medroxyprogesterone [Depo-Provera] 150 mg/mL suspension 150 mg IM [id number] Qty: 1 8RF ketorolac 10 mg tablet 10 mg PO Q6H PRN (Reason: pain) Qty: 14 0RF methocarbamol 500 mg tablet 500 mg PO TID PRN (Reason: muscle spasm) Qty: 30 0RF Referrals: Miscellaneous,Doctor, MD [Primary Care Provider] - Stand Alone Forms: Patient Portal/API
[2023-08-02] MEDS: HYDROCODONE/ACET 5/325 PREPACK 1 BOTTLE MISC (17:35)
[2023-08-02 17:37] VITALS: BP 132/88; PULSE 70; RESP 16; O2SAT 100
== END 2023-08-02 17:38 | disposition home or self-care (01) ==
PROVIDERS: Emergency Provider Emergency Medicine; Family Provider Pediatrics
DX: M25.512 Pain in left shoulder (principal)
CPT/HCPCS: 99281; 99283

== ENCOUNTER → 2023-08-04 09:54 | Outpatient (CLI) | payer OTHER, SELFPAY ==
--- NOTE | 2023-08-04 09:57 | DI.RAD.S_ITS ---
PROCEDURE: XR CERVICAL SPINE 2V OR 3V INDICATIONS: LEFT ARM WEAKNESS NECK PAIN TECHNIQUE: 3 view(s) of the cervical spine were acquired. COMPARISON: None. FINDINGS: Bones: No fractures or dislocations to the T1 level. The lateral masses of C1 appear intact on the odontoid view. No suspicious bony lesions. Mild disc height loss at C5-6. Multilevel facet arthrosis, most prominent on the right side of C4-5. Soft tissues: No prevertebral soft tissue swelling. IMPRESSION: Mild degenerative disc disease at C5-6, and multilevel facet arthrosis. Dictated by: Juan Williamson M.D. on 08/04/2023 at 10:46 Approved by: Juan Williamson M.D. on 08/04/2023 at 10:47
== END ==
LOC: RAD 09:56
PROVIDERS: Family Provider Pediatrics; PCP Physician Assistant; Referring Provider Physician Assistant; Visit Provider Physician Assistant
DX: M50.322 Other cervical disc degeneration at C5-C6 level (principal); M47.812 Spondylosis without myelopathy or radiculopathy, cervical region; M79.602 Pain in left arm; R29.898 Other symptoms and signs involving the musculoskeletal system
CPT/HCPCS: 72040

== ENCOUNTER → 2023-08-10 18:39 | Outpatient (CLI) | payer OTHER, SELFPAY ==
--- NOTE | 2023-08-10 18:40 | DI.MRI.S_ITS ---
PROCEDURE: MR CERVICAL SPINE WO CON INDICATIONS: Pain in left arm TECHNIQUE: Noncontrast sagittal T1 spin echo and T2 fast spin echo, sagittal STIR, foraminal oblique sagittal T2 fast spin echo, and axial gradient echo or T2 fast spin echo through the cervical spine. COMPARISON: None. FINDINGS: Image quality: Excellent. Alignment and Curvature: There is straightening of normal cervical lordosis. No significant spondylolisthesis. Bone Marrow: There is no marrow edema. No acute vertebral body compression fracture. Spinal Cord: Visualized spinal cord has normal size and signal. No cerebellar tonsillar herniation. Paraspinous Soft Tissues: No paravertebral masses. Prevertebral soft tissues are normal in thickness. C2-C3: Normal appearance. C3-C4: Loss of disc signal. Left lateral disc bulge and bilateral uncovertebral hypertrophic changes are seen causing mild left-sided neural foraminal narrowing. C4-C5: Loss of disc signal. No significant disc bulge, canal stenosis or neural foraminal narrowing. C5-C6: Loss of disc signal and disc height. Diffuse disc bulge and bilateral uncovertebral hypertrophic changes are seen causing [id number] central canal stenosis and right worse than left bilateral neural foraminal narrowing. C6-C7: Broad-based disc bulge and bilateral uncovertebral hypertrophic changes are seen with moderate central canal stenosis and left worse than right bilateral neural foraminal narrowing. C7-T1: Loss of disc height and disc signal. Broad-based, more left-sided disc herniation and bilateral uncovertebral hypertrophic changes are seen causing pevm-[id number] central canal stenosis and severe left-sided neural foraminal narrowing. Bulging disc likely compressing left T1 nerve root. IMPRESSION: 1. Straightening of normal cervical lordosis. No compression fracture or significant spondylolisthesis. No marrow edema. No abnormal cervical spinal cord signal. 2. Degenerative disc disease throughout cervical spine causing various degrees of central canal stenosis and neural foraminal narrowing most notably at C7-T1 level with moderate central canal stenosis and severe left-sided neural foraminal narrowing as above. Dictated by: Deon Solomon M.D. on 08/11/2023 at 11:42 Approved by: Deon Solomon M.D. on 08/11/2023 at 12:17
== END ==
PROVIDERS: Family Provider Pediatrics; PCP Physician Assistant; Referring Provider Physician Assistant; Visit Provider Physician Assistant
DX: M50.31 Other cervical disc degeneration, high cervical region (principal); M48.02 Spinal stenosis, cervical region; M48.03 Spinal stenosis, cervicothoracic region; M79.602 Pain in left arm; R29.898 Other symptoms and signs involving the musculoskeletal system
CPT/HCPCS: 72141

== ENCOUNTER 2023-08-11 18:04 | Emergency (ER) | payer OTHER, SELFPAY ==
[2023-08-11 18:24] VITALS: BP 190/87; PULSE 89; RESP 16; TEMP 36.8; O2SAT 97; BMI 42.5
--- NOTE | 2023-08-11 19:03 | ED_ITS ---
HPI - Extremity Problem General Chief complaint: Extremity Problem,Nontraumatic Stated complaint: lt arm pain/tingling/numbness Time Seen by Provider: 08/11/23 19:02 Source: patient Mode of arrival: Ambulatory History of Present Illness HPI Narrative: Patient is a 47-year-old female with history of left arm tingling and cramping. She had a cervical spine MRI yesterday which did show some foraminal narrowing at C7-T1. She reports that she was taking [place] and Flexeril for it she is already taking gabapentin. However the [place] and Flexeril ran out today. Her doctor is not in the office until Thursday. She took ibuprofen a couple of hours ago. She denies any weakness right-hand dominant Related Data Home Medications Medication Instructions Recorded Confirmed lamotrigine 100 mg tablet See Rx Instructions .Route .COMPLEX 10/04/21 07/31/23 loratadine 10 mg tablet 10 mg PO DAILY 10/04/21 07/31/23 rizatriptan 10 mg disintegrating mg PO 07/31/23 07/31/23 tablet rizatriptan 10 mg tablet mg PO DAILY 07/31/23 07/31/23 sodium,potassium,mag sulfates 17.5 PO 07/31/23 07/31/23 gram-3.13 gram-1.6 gram oral soln triamcinolone acetonide 0.1 % 1 applic topical 07/31/23 07/31/23 topical cream Previous Rx's Medication Instructions Recorded ergocalciferol (vitamin D2) 1,250 50,000 unit PO QWEEK #8 caps 10/04/21 mcg (50,000 unit) capsule levothyroxine 100 mcg tablet 100 mcg PO DAILY #90 tabs 02/07/22 medroxyprogesterone 150 mg/mL 150 mg IM [id number] #1 mL 02/07/22 intramuscular suspension (Depo-Provera) diazepam 10 mg tablet See Rx Instructions .Route 09/04/22 .COMPLEX #30 tabs ketorolac 10 mg tablet 10 mg PO Q6H PRN pain #14 tabs 09/08/22 methocarbamol 500 mg tablet 500 mg PO TID PRN muscle spasm #30 01/24/23 tabs gabapentin 300 mg capsule 300 mg PO TID PRN pain #60 caps 06/03/23 escitalopram oxalate 10 mg tablet 10 mg PO DAILY #90 tabs 06/09/23 cyclobenzaprine 5 mg tablet 5 mg PO TID PRN muscle spasm #20 07/31/23 tabs hydrocodone 5 mg-acetaminophen 325 1 tab PO Q6H PRN pain #10 tabs 08/02/23 mg tablet cyclobenzaprine 5 mg tablet 5 mg PO TID PRN muscle spasm #30 08/11/23 tabs hydrocodone 5 mg-acetaminophen 325 1 tab PO Q6H PRN pain #20 tabs 08/11/23 mg tablet prednisone 20 mg tablet 40 mg (2 x 20 mg) PO DAILY #10 tabs 08/11/23 Allergies Allergy/AdvReac Type Severity Reaction Status Date / Time No Known Drug Allergies Allergy Unknown Verified 08/11/23 18:28 Patient History Medical History Chronic insomnia Encounter for contraceptive management COVID-19 History of nephrolithiasis Bilateral nephrolithiasis Recurrent nephrolithiasis Allergic rhinitis Lymphocytic thyroiditis Thyroid nodule Long-term use of high-risk medication Cervical dystonia GERD (gastroesophageal reflux disease) Pharyngitis Goiter Acute maxillary sinusitis Anxiety History of dysmenorrhea Chronic headaches Migraine without aura and without status migrainosus, not intractable (04/07/15) Seizure disorder (11/09/14) Dysmenorrhea (11/09/14) Needlestick injury with contaminated needle Hydronephrosis, right Kidney stone Surgical History History of skin graft Family History Father Melanoma Hypertension TIA (transient ischemic attack) Grandfather Colon cancer Grandfather Lymphoma Grandmother Parkinsons disease Sister Hypothyroid Graves disease Social History Smoking Status: Never smoker alcohol intake: current Smoking Status: Never smoker alcohol intake frequency: holidays/special occasions only Substance Use Type: does not use Exam Initial Vital Signs Initial Vital Signs: Vital Signs Temperature 98.2 F 08/11/23 18:24 Pulse Rate 89 08/11/23 18:24 Respiratory Rate 16 08/11/23 18:24 Blood Pressure 190/87 H 08/11/23 18:24 Pulse Oximetry 97 08/11/23 18:24 Oxygen Delivery Method Room Air 08/11/23 18:24 GENERAL: Well-appearing, well-nourished and in no acute distress. CARDIOVASCULAR: peripheral pulses in tact, cap refill <2 sec RESPIRATORY: No respiratory distress, speaks in full sentences without difficulty EXTREMITIES: Normal range of motion, no clubbing or edema. Neurovascularly intact NEUROLOGICAL: Cranial nerves II through XII grossly intact. Normal gait and speech. Sensation in left deltoid intact. Medical Insurance Verifier strength equal bilaterally SKIN: Warm, dry, no petechiae, no rashes or lesions. Course Orders Ordered: Discontinued Medications Hydrocodone Bitart/Acetaminophen (Hydrocodone/Acet 5/325 Prepack) 1 bottle MISC DIRECTED ONE Stop: 08/11/23 19:19 Last Admin: 08/11/23 19:35 Dose: 1 bottle Documented By: PAIGE Cyclobenzaprine HCl (Cyclobenzaprine 10 Mg Prepack) 1 bottle MISC DIRECTED ONE Stop: 08/11/23 19:20 Last Admin: 08/11/23 19:35 Dose: 1 bottle Documented By: PAIGE Prednisone (Prednisone 20 Mg Tablet) 40 mg PO NOW ONE Stop: 08/11/23 19:19 Last Admin: 08/11/23 19:34 Dose: 40 mg Documented By: PAIGE Vital Signs Vital signs: Vital Signs - 8 hr 08/11/23 18:24 08/11/23 19:30 Temperature 98.2 F Pulse Rate 89 78 Respiratory Rate 16 12 Blood Pressure 190/87 H 201/97 H Pulse Oximetry 97 97 Oxygen Delivery Method Room Air Room Air MDM - Extremity (Nontraumatic) Imaging Data MR cervical spine: Radiologist's Impression: PROCEDURE: MR CERVICAL SPINE WO CON INDICATIONS: Pain in left arm TECHNIQUE: Noncontrast sagittal T1 spin echo and T2 fast spin echo, sagittal STIR, foraminal oblique sagittal T2 fast spin echo, and axial gradient echo or T2 fast spin echo through the cervical spine. COMPARISON: None. FINDINGS: Image quality: Excellent. Alignment and Curvature: There is straightening of normal cervical lordosis. No significant spondylolisthesis. Bone Marrow: There is no marrow edema. No acute vertebral body compression fracture. Spinal Cord: Visualized spinal cord has normal size and signal. No cerebellar tonsillar herniation. Paraspinous Soft Tissues: No paravertebral masses. Prevertebral soft tissues are normal in thickness. C2-C3: Normal appearance. C3-C4: Loss of disc signal. Left lateral disc bulge and bilateral uncovertebral hypertrophic changes are seen causing mild left-sided neural foraminal narrowing. C4-C5: Loss of disc signal. No significant disc bulge, canal stenosis or neural foraminal narrowing. C5-C6: Loss of disc signal and disc height. Diffuse disc bulge and bilateral uncovertebral hypertrophic changes are seen causing xixz-[id number] central canal stenosis and right worse than left bilateral neural foraminal narrowing. C6-C7: Broad-based disc bulge and bilateral uncovertebral hypertrophic changes are seen with moderate central canal stenosis and left worse than right bilateral neural foraminal narrowing. C7-T1: Loss of disc height and disc signal. Broad-based, more left-sided disc herniation and bilateral uncovertebral hypertrophic changes are seen causing qsva-ca-xrjaiprb central canal stenosis and severe left-sided neural foraminal narrowing. Bulging disc likely compressing left T1 nerve root. IMPRESSION: 1. Straightening of normal cervical lordosis. No compression fracture or significant spondylolisthesis. No marrow edema. No abnormal cervical spinal cord signal. 2. Degenerative disc disease throughout cervical spine causing various degrees of central canal stenosis and neural foraminal narrowing most notably at C7-T1 level with moderate central canal stenosis and severe left-sided neural foraminal narrowing as above. Dictated by: Deon Solomon M.D. on 08/11/2023 at 11:42 Approved by: Deon Solomon M.D. on 08/11/2023 at 12:17 MDM Narrative Medical decision making narrative: Patient 47-year-old female with radiculopathy T1 on MRI yesterday. Not having cauda equina symptoms. Not dropping things. She is currently out of medication that was helping her. She is taking gabapentin has not yet been on prednisone. I have discussed with her that we can not refill her opiate medications from the emergency department any longer she understands this. Discharge Plan Departure Patient Disposition: Home Clinical Impression: Radiculopathy Instructions: DI for Cervical Radiculopathy Activity Restrictions/Additional Instructions: *YOU HAVE BEEN DIAGNOSED WITH radiculopathy *WHAT TO DO: At this time you do have some narrowing at the C7-T1 area which are probably contributing to your symptoms. Follow-up with primary care provider you may require orthopedic evaluation and spine evaluation also physical therapy may be of benefit. *CONTINUE TO TAKE MEDICATIONS DIRECTED Prednisone 40 mg once a day for 5 days (do not take with ibuprofen) [place] 1 tablet every 6 hours if needed for severe pain Flexeril 5-10 every 8 hours if needed for muscle spasm *FOLLOW UP WITH YOUR PRIMARY CARE PROVIDER IN 2-3 DAYS OR CALL [phone] *RETURN TO ER IF YOU SHOULD HAVE increasing pain weakness dropping things OR ANY NEW, WORSENING OR CONCERNING SYMPTOMS CONTROLLED SUBSTANCE DISCHARGE (Narcotoic/benzodiazepine/Flexeril/Phenergan) 1. You have been prescribed narcotic medications, it does have acetaminophen/Tylenol/paracetamol in it, DO NOT TAKE MORE THAN 4,00mg in 24 hours of Tylenol. TRAMADOL DOES NOT CONTAIN TYLENOL 2. Please understand that we cannot provide further refills of narcotics, benzodiazepines or controlled substances through the ED and her pain management will need to be through your provider. 3. While on these medications you cannot drive or operate heavy machinery. 4. You cannot sign legal documents or perform any duties such as this. 5. As long as you're taking opiate pain medications he should also be taking a stool softener such as Colace, Dulcolax, MiraLAX or prune juice, to help avoid constipation. Prescriptions: New hydrocodone-acetaminophen 5-325 mg tablet 1 tab PO Q6H PRN (Reason: pain) Qty: 20 0RF cyclobenzaprine 5 mg tablet 5 mg PO TID PRN (Reason: muscle spasm) Qty: 30 0RF prednisone 20 mg tablet 40 mg PO DAILY Qty: 10 0RF No Action sodium,potassium,mag sulfates 17.5-3.13-1.6 gram recon soln PO rizatriptan 10 mg tablet,disintegrating PO triamcinolone acetonide 0.1 % cream 1 applic topical rizatriptan 10 mg tablet PO DAILY cyclobenzaprine 5 mg tablet 5 mg PO TID PRN (Reason: muscle spasm) Qty: 20 0RF diazepam 10 mg tablet See Rx Instructions .ROUTE .COMPLEX Qty: 30 4RF Rx Instructions: Take 1 tablet by mouth if needed for sleep gabapentin 300 mg capsule 300 mg PO TID PRN (Reason: pain) Qty: 60 0RF Rx Instructions: can increase to 3 caps TID prn escitalopram oxalate 10 mg tablet 10 mg PO DAILY Qty: 90 0RF loratadine 10 mg tablet 10 mg PO DAILY ergocalciferol (vitamin D2) 1,250 mcg (50,000 unit) capsule 50,000 unit PO QWEEK Qty: 8 0RF lamotrigine 100 mg tablet See Rx Instructions .ROUTE .COMPLEX Rx Instructions: 2 tabs qam and 2.5 tabs qpm; levothyroxine 100 mcg tablet 100 mcg PO DAILY Qty: 90 3RF medroxyprogesterone [Depo-Provera] 150 mg/mL suspension 150 mg IM [id number] Qty: 1 8RF ketorolac 10 mg tablet 10 mg PO Q6H PRN (Reason: pain) Qty: 14 0RF methocarbamol 500 mg tablet 500 mg PO TID PRN (Reason: muscle spasm) Qty: 30 0RF hydrocodone-acetaminophen 5-325 mg tablet 1 tab PO Q6H PRN (Reason: pain) Qty: 10 0RF Referrals: Wanda Acharya PA-C [Primary Care Provider] - Stand Alone Forms: Patient Portal/API, Work Release Note
[2023-08-11 19:30] VITALS: BP 201/97; PULSE 78; RESP 12; O2SAT 97
--- NOTE | 2023-08-11 19:32 | PC.NURSE ---
Provider aware of blood pressure. No further orders.
[2023-08-11] MEDS: predniSONE 20 MG TABLET 40 MG PO (19:34)
[2023-08-11] MEDS: HYDROCODONE/ACET 5/325 PREPACK 1 BOTTLE MISC (19:35)
[2023-08-11] MEDS: CYCLOBENZAPRINE 10 MG PREPACK 1 BOTTLE MISC (19:35)
== END 2023-08-11 19:43 | disposition home or self-care (01) ==
PROVIDERS: Emergency Provider Emergency Medicine; Family Provider Pediatrics; PCP Physician Assistant
DX: M54.13 Radiculopathy, cervicothoracic region (principal)
CPT/HCPCS: 99283

== ENCOUNTER → 2023-10-13 15:11 | Outpatient (CLI) | payer OTHER, SELFPAY ==
--- NOTE | 2023-10-13 19:51 | DI.NM.S_ITS ---
DATE OF SERVICE: 10/13/2023 PROCEDURE: Exercise stress test. INDICATIONS: Palpitation, edema. CARDIAC STRESS: The patient underwent exercise stress test under the supervision of an attending staff as per standard Nemesio protocol. She walked on Nemesio protocol for 4 minutes and 34 seconds and achieved maximum heart rate of 140, which was 81% of target heart rate. The patient had significant shortness of breath and hypertensive blood pressure response. Hence, stress test was stopped. Her oxygen saturation was 96% at peak exercise. Baseline rhythm was sinus. During stress, no convincing ischemic changes seen. Rare PACs without any complex arrhythmias. Baseline blood pressure 144/90 and peak blood pressure 240/100 with hypertensive blood pressure response. Achieved 7 METs of workload. GEOFF positive 44%. No chest pain; however, profound shortness of breath. Normal recovery. CONCLUSION: Submaximal exercise stress test (81% target heart rate), negative for inducible ischemia. Hypertensive blood pressure response. Peak blood pressure, 240/100. Diminished exercise tolerance. GEOFF positive 44%. Profound dyspnea during exercise with oxygen saturation 96%. No complex arrhythmias. Felicitas Milton - STEFANY/mark/VIGNESH doc#: [id number]/job#: [id number] dd: 10/13/2023 16:20:00 dt: 10/13/2023 18:21:00 DICTATING /COPIES TO: Lydia Mcgowan MD COPIES MNE: KATERIN;
== END ==
PROVIDERS: Family Provider Pediatrics; PCP Physician Assistant; Referring Provider Internal Medicine; Visit Provider Internal Medicine
DX: R00.2 Palpitations (principal); R06.00 Dyspnea, unspecified; R60.0 Localized edema; R03.0 Elevated blood-pressure reading, without diagnosis of hypertension
CPT/HCPCS: 93017

== ENCOUNTER → 2023-11-28 13:22 | Outpatient (CLI) | payer OTHER, SELFPAY | PROVIDERS: Family Provider Pediatrics; PCP Physician Assistant; Referring Provider Internal Medicine; Visit Provider Internal Medicine | DX: Z23 Encounter for immunization (principal) | CPT/HCPCS: 90471; 90656 ==

== ENCOUNTER → 2023-12-30 07:37 | Outpatient (CLI) | payer OTHER, SELFPAY ==
--- NOTE | 2023-12-30 07:38 | DI.RAD.S_ITS ---
PROCEDURE: XR THORACIC SPINE 3V INDICATIONS: RIB PAIN TECHNIQUE: 3 views of the thoracic spine were acquired. COMPARISON: None. FINDINGS: Bones: No fractures or dislocations. No suspicious bony lesions. 12 pairs of ribs are noted, and appear intact where visualized. Soft tissues: No paravertebral stripe thickening. IMPRESSION: Unremarkable thoracic spine radiographs Approved by: Kishor Bañuelos M.D. on 12/30/2023 at 9:08
== END ==
PROVIDERS: Family Provider Pediatrics; PCP Physician Assistant; Referring Provider Physical Medicine & Rehabilitation; Visit Provider Physical Medicine & Rehabilitation
DX: R07.81 Pleurodynia (principal)
CPT/HCPCS: 72072

== ENCOUNTER 2024-03-01 09:33 | Outpatient (CLI) | payer OTHER, SELFPAY ==
[2024-03-01] VITALS (9 sets, daily range): BP systolic 133–154; BP diastolic 67–88; PULSE 67–90; RESP 14–19; TEMP 36.5; O2SAT 97–100
--- NOTE | 2024-03-01 09:35 | DI.RAD.S_ITS ---
PROCEDURE: PAIN C/T INTERLAMINAR INJECT INDICATIONS: para left C7/T1 TL CADE COMPARISON: None. FINDINGS/IMPRESSION: Fluoroscopic spot filming was performed to verify placement of spinal needles at the left C7-T1 level(s), as labeled on the films. Appropriate location(s) of the needle tip(s) was confirmed by injection of iodinated contrast. Dictated by: Fritz Villeda M.D. on 03/01/2024 at 15:49 Approved by: Fritz Villeda M.D. on 03/01/2024 at 15:50
[2024-03-01] MEDS: MIDAZOLAM 2 MG/2 ML VIAL IV (10:32)
[2024-03-01] MEDS: BUPIVACAINE 0.25% (PF) VIAL 2 ML INJ (10:43)
[2024-03-01] MEDS: DEXAMETHASONE 10 MG/ML VIAL 20 MG INJ (10:44)
[2024-03-01] MEDS: iopamidoL 15 ML VIAL 3 ML INJ (10:44)
--- NOTE | 2024-03-01 10:51 | P.PCN_ITS ---
Date/Time/Diagnoses Date of procedure: 03/01/24 Time of procedure: 10:51 Pre-procedure diagnosis: 1. CERVICAL STENOSIS, 2. CERVICAL HNP WITH UPPER EXTREMITY RADICULAR FEATURES Procedure Notes Procedure: FLUORSCOPICALLY GUIDED CONTRAST CONTROLLED INTERLAMINAR EPIDURAL STEROID INJECTION - C7/T1 TL CADE Indications: Felicitas is referred by MARGUERITE Acharya for treatment of Cervical Stenosis. Physician: Satish Villanueva Total Fluoroscopy time (seconds): 26 Total sedation minutes: 14 Complications: none Procedure in detail & Post-procedure care: DESCRIPTION OF PROCEDURE Following review of allergy and review of potential side effects and co mplications, including, but not necessarily limited to, infection, allergic reaction, local tissue breakdown, temporary as well as permanent nerve injury, stroke, paralysis, and possible , the patient indicated that patient understood and agreed to proceed. An informed consent document was signed by the patient, witnessed by a nurse, and placed in the patient's chart. Additionally, other treatment options including modalities, medications, and physical therapy were reviewed with the patient. After review of previous anaesthesic history and IV conscious sedation the patient was deemed safe to proceed with todays procedure with IV conscious sedation as ASA class II designation. Safety time-out was performed to confirm patient ID, procedure to be performed and site of procedure. IV sedation was accomplished with a combination of 2mg of Versed administered by the RN after DO order, titrated to patient comfort during the course of the procedure while the patient remained responsive to all verbal commands. In the prone position, following sterile prep and drape of the cervical region, the C7/T1 translaminar space was identified fluoroscopically. The skin was anesthetized via a 25-gauge 1.5-inch needle with 1% lidocaine solution. At this point, a 25-gauge, 2.5-inch short bevel spinal needle was atraumatically introduced and advanced under fluoroscopic guidance into epidural space at the C7/T1 translaminar space. Depth was confirmed on lateral view. Radiological data, including multiple fluoroscopic views of the cervical spine, reveal a spinal needle at the C7/T1 translaminar space. Lateral views then show placement of the needle in the epidural space. Subsequent views show contrast material flowing superiorly and inferiorly in the epidural space. DSA fluorosco py with live contrast injection, once again, confirmed no vascular or intrathecal uptake. At this point, using loss of resistance technique with saline and air, the epidural space was entered. Following negative aspiration, injection of approximately 1.5 cc of Isovue-200 with live fluoroscopy in the AP view confirmed epidural flow in the epidural space without vascular or intrathecal uptake observed. Subsequently, a test dose of 1 cc of 1% lidocaine solution was injected and patient was observed for two minutes without signs or symptoms of complications, including abdominal pain, shortness of breath, bilateral upper or lower extremity weakness, nausea and vomiting, prior to steroid injection. At this point, 2cc or 20mg of dexamethasone was then injected without incident. The patient tolerated the procedure well without signs or symptoms of complications prior to transfer to the recovery area for further monitoring The patient was then transferred to the recovery area where they were observed for an appropriate period of time after the injection. The patient reported a VAS score of 6 prior to the procedure and a post-procedure VAS of 0 POST OP INSTRUCTIONS The patient was provided a Pain Log to continue to record the patient's response to the target-specific procedure prior to the patient's follow-up visit with the referring physician. Additionally, specific post-injection care instructions and a contact number to our office were provided if concerns arise regarding possible complications associated with the procedure are suspected.
== END 2024-03-01 11:40 | disposition home or self-care (01) ==
LOC: RAD 09:34
PROVIDERS: Family Provider Pediatrics; PCP Physician Assistant; Referring Provider Physical Medicine & Rehabilitation; Visit Provider Physical Medicine & Rehabilitation
DX: M48.02 Spinal stenosis, cervical region (principal); M50.13 Cervical disc disorder with radiculopathy, cervicothoracic region
CPT/HCPCS: 62321; 99152; J1100; J2250; J3490

== ENCOUNTER → 2024-04-16 09:42 | Outpatient (CLI) | payer OTHER, SELFPAY ==
[2024-04-16 11:08] LABS: Influenza A - CEPHEID Flu A NEGATIVE (NEGATIVE); Influenza B - CEPHEID Flu B NEGATIVE (NEGATIVE); Respiratory Syncytial Virus Negative (Negative)
[2024-04-16 11:12] LABS: COVID-19 CEPHEID 4-PLEX PCR Negative (Negative)
== END ==
PROVIDERS: Family Provider Pediatrics; PCP Physician Assistant; Visit Provider Nurse Practitioner Family
DX: R05.9 Cough, unspecified (principal); J02.9 Acute pharyngitis, unspecified
CPT/HCPCS: 0241U; 87070; 87077; 87147

== ENCOUNTER → 2024-07-28 07:43 | Outpatient (CLI) | payer OTHER, SELFPAY | LOC: PHYS 07:44 | PROVIDERS: Family Provider Pediatrics; PCP Physician Assistant; Referring Provider Orthopaedic Surgery Orthopaedic Surgery of the Spine; Visit Provider Orthopaedic Surgery Orthopaedic Surgery of the Spine | DX: M54.12 Radiculopathy, cervical region (principal) | CPT/HCPCS: 95886; 95909 ==

== ENCOUNTER → 2024-08-29 08:22 | Outpatient (CLI) | payer OTHER, SELFPAY ==
--- NOTE | 2024-08-29 | DI.US.S_ITS ---
MM diagnostic mammo BI, US breast LT limited: 08/29/2024 BI-RADS: 0 CLINICAL: 48-year old female for bilateral diagnostic mammogram and left diagnostic breast ultrasound. Tyrer-Cuzick lifetime risk of 20.5%. Current reported family history of breast cancer: mother. The patient reports a pea-sized palpable abnormality (1 month) in the right axilla with associated purplish skin discoloration. PRIOR EXAMS: None. This is a baseline mammogram. MAMMOGRAPHY TECHNIQUE: 2D and 3D (tomosynthesis) digital mammographic views obtained, with additional images as needed for full coverage. Current study was also evaluated with a Computer Aided Detection (CAD) system. ULTRASOUND TECHNIQUE TARGETED Left Breast Ultrasound: Real-time ultrasound exam was performed focused to area of clinical and/or imaging concern. Real-time wilson scale and color doppler imaging of the area of clinical interest was performed with image documentation. DENSITY B. There are scattered areas of fibroglandular density. MAMMOGRAPHY FINDINGS Right: MLO only, Axilla, measuring 0.4cm: Correlating with patient concern, there is an asymmetry seen only on one view. Additional imaging evaluation needed. This finding is superficial and likely located within the skin. Left (finding-1): Upper Outer at 1:00, Anterior depth, measuring 0.6cm: There is a microlobulated mass present. ULTRASOUND FINDINGS Left (finding-1): Upper Outer at 1:00, 3 cm from nipple, measuring 0.6 x 0.5 x 0.6 cm: Correlating with findings on mammogram, there are clustered microcysts. IMPRESSION: Right (Asymmetry): MLO only, Axilla, measuring 0.4cm * Incomplete - Needs additional imaging evaluation. Left: Upper Outer at 1:00, 3 cm from nipple, measuring 0.6 x 0.5 x 0.6 cm * Probably Benign. RECOMMENDATIONS Right: MLO only, Axilla * Further evaluation with diagnostic ultrasound to be performed today. Left: Upper Outer at 1:00, 3 cm from nipple * Six month followup with diagnostic ultrasound and diagnostic mammography. COMMENTS: Findings and recommendations were conveyed to the patient during today's evaluation. In addition, this patient has an elevated lifetime risk for breast cancer of over 20%. Recommend consideration for annual screening breast MRI as an adjunct to screening mammography. OVERALL ASSESSMENT CATEGORY BI-RADS-0: Incomplete - Need Additional Imaging Evaluation. ELECTRONICALLY SIGNED: Loren Leo M.D. on 08/29/2024 at 11:46:24 AM PT Interpreting Station ID: [id number]
--- NOTE | 2024-08-29 08:23 | DI.US.S_ITS ---
US axillary only rt: 08/29/2024. BI-RADS: 2 CLINICAL: 48-year old female for right diagnostic breast ultrasound. Tyrer- Cuzick lifetime risk of 22.2%. Current reported family history of breast cancer: mother. The patient reports a pea-sized palpable abnormality (1 month) in the right axilla with associated purplish skin discoloration. PRIOR EXAMS: Same day mammogram. ULTRASOUND TECHNIQUE: Real-time wilson scale and color doppler imaging of the area of clinical interest was performed with image documentation. Exam is limited to the right axilla. ULTRASOUND FINDINGS Right: Axilla, measuring 0.5 x 0.2 x 0.6 cm: Underlying surface marker and correlating with patient concern there is an intradermal sebaceous cyst present. IMPRESSION: Right * No evidence of malignancy with benign findings. RECOMMENDATIONS Right: Axilla * Clinical follow-up is recommended, and further management of palpable abnormalities or other focal signs or symptoms should be based on the results of clinical evaluation. If palpable abnormality or other concerning symptom persists or progresses, further clinical evaluation should be considered. COMMENTS: Findings and recommendations were conveyed to the patient during today's evaluation. In addition, this patient has an elevated lifetime risk for breast cancer of over 20%. Recommend consideration for annual screening breast MRI as an adjunct to screening mammography. OVERALL ASSESSMENT CATEGORY BI-RADS-2: Benign. ELECTRONICALLY SIGNED: Loren Leo M.D. on 08/29/2024 at 11:45:52 AM PT Interpreting Station ID: [id number]
== END ==
LOC: MAMMO 08:22
PROVIDERS: Family Provider Pediatrics; PCP Physician Assistant; Referring Provider Physician Assistant; Visit Provider Physician Assistant
DX: R92.8 Other abnormal and inconclusive findings on diagnostic imaging of breast (principal); N64.89 Other specified disorders of breast; N60.02 Solitary cyst of left breast; N63.31 Unspecified lump in axillary tail of the right breast; Z80.3 Family history of malignant neoplasm of breast
CPT/HCPCS: 76642; 76882; 77066; G0279

== ENCOUNTER 2024-11-15 21:11 | Emergency (ER) | payer OTHER, SELFPAY ==
[2024-11-15 21:30] VITALS: BP 188/100; PULSE 83; RESP 17; TEMP 36.1; O2SAT 97; BMI 39.1
[2024-11-15 23:35] VITALS: BP 168/89; PULSE 84; RESP 16; O2SAT 97
--- NOTE | 2024-11-15 23:47 | ED.HA ---
HPI - Headache General Chief Complaint: Headache Stated Complaint: migraine, since this AM Time Seen by Provider: 11/15/24 23:46 Mode of arrival: Ambulatory History of Present Illness HPI Narrative: 48y year old female with history of recurrent headaches, followed by neurology, has had typical right frontal headache without fever since this morning, no focal weakness to face or extremities, no focal numbness to face or extremities, some nausea, some photophobia, no neck pain or stiffness, not better with her treatment of typtan x2 doses so far. Seeking recscue treatment. Last visit ED for this about 2 years ago. Denies use blood thinners, fevers, chills, recent cough, chest pain, shortness of breath. Related Data Home Medications ?Medication ?Instructions ?Recorded ?Confirmed lamotrigine 100 mg tablet See Rx Instructions .Route .COMPLEX 10/04/21 12/30/23 loratadine 10 mg tablet 10 mg PO DAILY 10/04/21 12/30/23 triamcinolone acetonide 0.1 % 1 applic topical 07/31/23 12/30/23 topical cream gabapentin 100 mg capsule 100 mg PO TID 12/30/23 12/30/23 gabapentin 600 mg tablet 600 mg PO 3XD 12/30/23 12/30/23 Previous Rx's ?Medication ?Instructions ?Recorded ergocalciferol (vitamin D2) 1,250 50,000 unit PO QWEEK #8 caps 10/04/21 mcg (50,000 unit) capsule levothyroxine 100 mcg tablet 100 mcg PO DAILY #90 tabs 02/07/22 medroxyprogesterone 150 mg/mL 150 mg IM [id number] #1 mL 02/07/22 intramuscular suspension (Depo-Provera) diazepam 10 mg tablet See Rx Instructions .Route 09/04/22 .COMPLEX #30 tabs escitalopram oxalate 10 mg tablet 10 mg PO DAILY #90 tabs 06/09/23 codeine 10 mg-guaifenesin 100 mg/5 10 ml PO Q4-6H PRN cough #120 mL 04/16/24 mL oral liquid amoxicillin 500 mg capsule 500 mg PO BID #20 caps 04/17/24 Allergies Allergy/AdvReac Type Severity Reaction Status Date / Time No Known Drug Allergies Allergy Unknown Verified 11/15/24 21:30 Patient History Medical History (Updated 11/16/24 @ 03:43 by Morteza Vaca MD) HNP (herniated nucleus pulposus), cervical Cervical radicular pain Chronic insomnia Encounter for contraceptive management COVID-19 History of nephrolithiasis Bilateral nephrolithiasis Recurrent nephrolithiasis Allergic rhinitis Lymphocytic thyroiditis Thyroid nodule Long-term use of high-risk medication Cervical dystonia GERD (gastroesophageal reflux disease) Pharyngitis Goiter Acute maxillary sinusitis Anxiety History of dysmenorrhea Chronic headaches Migraine without aura and without status migrainosus, not intractable (04/07/15) Seizure disorder (11/09/14) Dysmenorrhea (11/09/14) Needlestick injury with contaminated needle Hydronephrosis, right Kidney stone Surgical History History of skin graft Family History Father Melanoma Hypertension TIA (transient ischemic attack) Grandfather Colon cancer Grandfather Lymphoma Grandmother Parkinsons disease Sister Hypothyroid Graves disease Social History alcohol intake: current alcohol intake frequency: holidays/special occasions only Exam Narrative Exam Narrative: GENERAL: Well-developed patient, in mild distress. HEAD: Atraumatic. Normocephalic. EYES: Pupils equal round and reactive. Extraocular motions intact. No scleral icterus. No injection or drainage. ENT: Nose without bleeding, purulent drainage. Throat without erythema, tonsillar hypertrophy or exudate. Airway patent. NECK: Trachea midline. Non tender CARDIOVASCULAR: Regular rate and rhythm without murmurs, gallops, or rubs. RESPIRATORY: Clear to auscultation. Breath sounds equal bilaterally. No wheezes, rales, or rhonchi. GASTROINTESTINAL: Abdomen soft, non-tender, nondistended. EXTREMITIES: No edema or joint tenderness. BACK: Nontender without deformity or crepitance. No flank tenderness. NEURO: AOx3. Motor functions grossly nonfocal. SKIN: No rash or erythema of visible areas Initial Vital Signs Initial Vital Signs: Vital Signs Temperature 97.0 F L 11/15/24 21:30 Pulse Rate 83 11/15/24 21:30 Respiratory Rate 17 11/15/24 21:30 Blood Pressure 188/100 H 11/15/24 21:30 Pulse Oximetry 97 10/07/25 21:30 Oxygen Delivery Method Room Air 11/15/24 21:30 Course Orders Ordered: Discontinued Medications Diphenhydramine HCl (Diphenhydramine 50 Mg/Ml Vial) 50 mg IV NOW ONE Stop: 11/16/24 00:47 Last Admin: 11/16/24 00:53 Dose: 50 mg Documented By: JAMES Sodium Chloride (Normal Saline 0.9%) 1,000 mls @ 1,000 mls/hr IV BOLUS ONE Stop: 11/16/24 01:45 Last Infusion: 11/16/24 02:31 Dose: Infused Documented By: Admin: 11/16/24 00:53 Dose: 1,000 mls/hr Documented By: JAMES Ketorolac Tromethamine (Ketorolac 30 Mg/Ml Vial) 15 mg IV NOW ONE Stop: 11/16/24 00:47 Last Admin: 11/16/24 00:53 Dose: 15 mg Documented By: JAMES Prochlorperazine (Prochlorperazine 10 Mg/2 Ml Vial) 10 mg IV NOW ONE Stop: 11/16/24 00:47 Last Admin: 11/16/24 00:53 Dose: 10 mg Documented By: JAMES Vital Signs Vital signs: Vital Signs - 8 hr 11/15/24 21:30 11/15/24 23:35 Temperature 97.0 F L Pulse Rate 83 84 Respiratory Rate 17 16 Blood Pressure 188/100 H 168/89 H Pulse Oximetry 97 97 Oxygen Delivery Method Room Air Room Air MDM - Headache MDM Narrative Medical decision making narrative: 48-year-old female with history of migraine headaches followed by Neurology, had typical right sided frontal headache without trauma today, persisting through the day despite 2 doses of her Tryptan medication. Last rescue therapy in the emergency department over a year ago, cannot recall any specific treatments regimen given then. No known drug allergies. Afebrile, nontoxic appearing, moves neck well. Nonfocal neurological exam. Trial of IV fluids, Compazine, Benadryl, Toradol. Patient agreeable to this approach. No advanced brain imaging at this time. 0145, patient believes she received medications about a 1/2 hour ago, seems to have some improving symptoms, further observe for now, no new therapies at this time. Further improved, walking around, would like to go home. DC home. FU with her neurologist advised. Return precautions discussed. Discharge Plan Departure Patient Disposition: Home Clinical Impression: Migraine headache Instructions: DI for Migraine Activity Restrictions/Additional Instructions: Typical right sided headache, history of recurrent headaches, unfortunately not responsive to your usual Triptan medication regimen at home. IV medications given for rescue therapy, that included Compazine and Benadryl and Toradol. IV fluid bolus was also given. Symptoms nearly completely resolved, much improved, ambulatory, requesting to go home. Follow up with your area neurologist as scheduled. Return earlier to this/nearest emergency department for any change worsening symptoms or any concerns prior. Prescriptions: No Action triamcinolone acetonide 0.1 % cream 1 applic topical codeine-guaifenesin 10-100 mg/5 mL liquid 10 ml PO Q4-6H PRN (Reason: cough) Qty: 120 0RF diazepam 10 mg tablet See Rx Instructions .ROUTE .COMPLEX Qty: 30 4RF Rx Instructions: Take 1 tablet by mouth if needed for sleep escitalopram oxalate 10 mg tablet 10 mg PO DAILY Qty: 90 0RF amoxicillin 500 mg capsule 500 mg PO BID Qty: 20 0RF loratadine 10 mg tablet 10 mg PO DAILY ergocalciferol (vitamin D2) 1,250 mcg (50,000 unit) capsule 50,000 unit PO QWEEK Qty: 8 0RF lamotrigine 100 mg tablet See Rx Instructions .ROUTE .COMPLEX Rx Instructions: 2 tabs qam and 2.5 tabs qpm; levothyroxine 100 mcg tablet 100 mcg PO DAILY Qty: 90 3RF medroxyprogesterone [Depo-Provera] 150 mg/mL suspension 150 mg IM [id number] Qty: 1 8RF gabapentin 100 mg capsule 100 mg PO TID gabapentin 600 mg tablet 600 mg PO 3XD Referrals: Wanda Acharya PA-C [Primary Care Provider, Medical] Stand Alone Forms: Patient Portal/API
[2024-11-16] MEDS: KETOROLAC 30 MG/ML VIAL 15 MG IV (00:53)
[2024-11-16] MEDS: SODIUM CHLORIDE 0.9% 1,000 ML 1000 ML IV (00:53)
[2024-11-16] MEDS: diphenhydrAMINE 50 MG/ML VIAL IV (00:53)
[2024-11-16] MEDS: PROCHLORPERAZINE 10 MG/2 ML VIAL IV (00:53)
[2024-11-16 02:31] VITALS: BP 151/66; PULSE 78; RESP 15; O2SAT 97
== END 2024-11-16 03:46 | disposition home or self-care (01) ==
PROVIDERS: Emergency Provider Emergency Medicine; Family Provider Pediatrics; PCP Physician Assistant
DX: G43.909 Migraine, unspecified, not intractable, without status migrainosus (principal)
CPT/HCPCS: 96361; 96374; 96375; 99283; 99284; J0780; J1200; J1885; J7030